=== PATIENT | female | born 1970 | race American Indian/Alaskan Native ===

== ENCOUNTER 2016-11-22 07:44 | Outpatient (CLI) | payer BC ==
--- NOTE | 2016-11-22 08:32 | Mammography Report ---
Bilateral mammogram: Compared to 08/04/15. CAD study utilized. Findings: Predominance adipose tissue bilaterally. Benign calcifications and benign densities. No suspicious calcification. No mass. Normal axilla. Impression: Benign findings. Annual follow up recommended. BI-RADS CATEGORY: 2 = Benign ACR BI-RADS MAMMOGRAPHIC CODES: 0 = Needs additional imaging evaluation; 1 = Negative; 2 = Benign; 3 = Probably benign; 4 = Suspicious; 5 = Malignant; 6 = Known biopsy-proven malignancy COMMENT: 1. Dense breast tissue, i.e., adenosis, fibrocystic changes, etc., may obscure an underlying neoplasm. 2. Approximately 10% of cancers are not detected with mammography. 3. A negative mammography report should not delay biopsy if a clinically suspicious mass is present. COMMENT: Patient follow-up letters are generated in [employer].
== END 2016-11-22 07:45 | disposition home or self-care (01) ==
LOC: MAMMO 07:44
PROVIDERS: ATTEND Internal Medicine
DX: Z12.31 Encounter for screening mammogram for malignant neoplasm of breast (principal); E11.65 Type 2 diabetes mellitus with hyperglycemia; D64.9 Anemia, unspecified
CPT/HCPCS: 77067; G0202

== ENCOUNTER 2017-06-30 15:25 | Emergency (ER) | payer BC ==
[2017-06-30 16:58] LABS: Hemoglobin 9.3 gm/dl (10.1-14.3); Red Blood Count 4.54 M/mm3 (3.65-5.03)
[2017-06-30 16:59] LABS: Mean Corpuscular Hemoglobin 20 pg (28-32); Mean Corpuscular Volume 68 fl (79-97)
[2017-06-30 17:00] LABS: Lymphocytes % (Auto) 19.6 % (13.4-35.0); Mean Corpuscular HGB Conc 30 % (30-34); Monocytes % (Auto) 8.9 % (0.0-7.3); Platelet Count 199 K/mm3 (140-440); Red Cell Distribution Width 19.1 % (13.2-15.2)
[2017-06-30 17:01] LABS: Basophils # (Auto) 0.1 K/mm3 (0.0-0.1); Basophils % (Auto) 0.9 % (0.0-1.8); Eosinophils # (Auto) 0.3 K/mm3 (0.0-0.4); Eosinophils % (Auto) 3.5 % (0.0-4.3); Lymphocytes # (Auto) 1.5 K/mm3 (1.2-5.4); Monocytes # (Auto) 0.7 K/mm3 (0.0-0.8)
[2017-06-30 17:11] LABS: BUN/Creatinine Ratio 22; Blood Urea Nitrogen 13 mg/dL (7-17); Calcium 8.7 mg/dL (8.4-10.2); Hemolysis Index 33
--- NOTE | 2017-06-30 20:54 | Emergency Department Report ---
ED General Adult HPI - General Chief complaint: Puncture Wound Stated complaint: TOE INFECTION Time Seen by Provider: 06/30/17 20:43 Source: patient Mode of arrival: Ambulatory Limitations: No Limitations - History of Present Illness Initial comments: pt hx of hypercoag, on xarelto, also dm for 20 yrs but good sensation in feet per pt has some bullous changes to her great toe and 2 toe that is now peeling, no other c/o, not sure how she got it denies burn, denies trauma, not sure if she got into wet socks and shoes, nl temp and pulses, r foot history of arterial problems no history of rest pain foot is warm to touch. No history of arterial bypass. She denies any shaking chills or fever - Related Data Home Medications Medication Instructions Recorded Confirmed Last Taken Aspirin [Baby Aspirin] 81 mg PO ONCE 12/07/13 01/16/16 01/15/16 81mg Insulin Detemir [Levemir Flexpen] 30 unit SQ QHS 12/07/13 01/16/16 01/15/16 30 units Insulin Lispro [Humalog] 4 unit SUB-Q QAC 12/07/13 01/16/16 01/16/16 4 units Rivaroxaban [Xarelto] 20 mg PO QDAY 12/07/13 01/16/16 01/15/16 20mg Previous Rx's Medication Instructions Recorded Last Taken Type Clindamycin [Clindamycin CAP] 450 mg PO Q8HR 7 Days #63 capsule 06/30/17 Unknown Rx Allergies Allergy/AdvReac Type Severity Reaction Status Date / Time No Known Allergies Allergy Verified 06/30/17 15:40 ED Review of Systems ROS: Stated complaint: TOE INFECTION Other details as noted in HPI Comment: All other systems reviewed and negative Constitutional: denies: diaphoresis, fever, malaise Respiratory: denies: no symptoms reported, cough, orthopnea, shortness of breath Cardiovascular: denies: palpitations, dyspnea on exertion, orthopnea Gastrointestinal: denies: diarrhea, constipation, hematemesis, melena Genitourinary: denies: frequency, hematuria, discharge Musculoskeletal: denies: joint swelling, arthralgia, myalgia Skin: as per HPI Neurological: denies: numbness, paresthesias ED Past Medical Hx - Past Medical History Hx Diabetes: Yes Hx GERD: Yes Hx Arthritis: Yes Additional medical history: DVT, PE, iron deficiency, MRSA, factor 5 gene - Surgical History Additional Surgical History: thyroid removed, venous ablasion - Social History Smoking Status: Never Smoker Substance Use Type: None - Medications Home Medications: Home Medications Medication Instructions Recorded Confirmed Last Taken Type Aspirin [Baby Aspirin] 81 mg PO ONCE 12/07/13 01/16/16 01/15/16 History 81mg Insulin Detemir [Levemir Flexpen] 30 unit SQ QHS 12/07/13 01/16/16 01/15/16 History 30 units Insulin Lispro [Humalog] 4 unit SUB-Q QAC 12/07/13 01/16/16 01/16/16 History 4 units Rivaroxaban [Xarelto] 20 mg PO QDAY 12/07/13 01/16/16 01/15/16 History 20mg Clindamycin [Clindamycin CAP] 450 mg PO Q8HR 7 Days #63 capsule 06/30/17 Unknown Rx ED Physical Exam - General Limitations: No Limitations General appearance: alert - Head Head exam: Present: atraumatic, normocephalic - Eye Eye exam: Present: normal appearance, PERRL, EOMI - ENT ENT exam: Present: normal exam, normal orophraynx, mucous membranes dry, mucous membranes moist - Neck Neck exam: Present: normal inspection. Absent: tenderness, meningismus - Respiratory Respiratory exam: Present: normal lung sounds bilaterally. Absent: respiratory distress, wheezes, rales, rhonchi, stridor - Cardiovascular Cardiovascular Exam: Present: regular rate, normal rhythm, normal heart sounds - GI/Abdominal GI/Abdominal exam: Present: soft. Absent: tenderness, guarding, rebound, mass, pulsatile mass - Extremities Exam Extremities exam: Present: other (right foot great toe and second digit with bullous changes local erythema but no warmth nor soft tissue gas no red streaks calf is nontender with no Homans local ulceration noted). Absent: pedal edema, joint swelling, calf tenderness - Neurological Exam Neurological exam: Present: alert, oriented X3, CN II-XII intact. Absent: motor sensory deficit - Psychiatric Psychiatric exam: Present: normal affect ED Course Vital Signs 06/30/17 06/30/17 15:41 22:19 Temperature 98.6 F Pulse Rate 94 H 89 Respiratory 18 18 Rate Blood Pressure 135/76 143/79 O2 Sat by Pulse 96 100 Oximetry - Reevaluation(s) Reevaluation #1: 06/30/17 23:20 Extra history was obtained this cyst shoulder soft tissue gas at the digit this is likely due to a fellow ulceration she was not hypotensive W Fantasma was normal as was lactic acid. No evidence of neck fashion offered to discuss the case with the on-call surgery Dr. Dr. Coy who states that if clinically she looks okay we will go ahead and discharge her this is simply appropriate since she has look toxic she doesn't have hypotension the x-ray did not show any osteomyelitis the white count and lactic were negative. ED Medical Decision Making - Lab Data Result diagrams: 06/30/17 16:37 06/30/17 16:37 - Radiology Data Radiology results: report reviewed - Medical Decision Making Dressing was placed patient was given antibiotics she is going to see the airport duty manager in referral in 2 days you should return if new alarming symptoms as previously O the case was discussed with the surgery on-call they felt it was okay to send her home. The foot has good capillary refill and good pulses. There is no evidence of what her dry gangrene at this time. There is no evidence of devitalized tissue that would need further emergent evaluation or care or inpatient evaluation at this time. No evidence of neck tightness and fasciitis. No evidence of DVT or PE noted at this time. No evidence of osteomyelitis or worsening symptoms. No evidence of sepsis patient therefore stable otptfollow-up. Critical care attestation.: If time is entered above; I have spent that time in minutes in the direct care of this critically ill patient, excluding procedure time. ED Disposition Clinical Impression: Foot ulcer, Cellulitis Disposition: DC-01 TO HOME OR SELFCARE Is pt being admited?: No Condition: Stable Instructions: Diabetic Foot Care (ED), Diabetic Foot Ulcers (ED), Cellulitis ( ED) Prescriptions: Clindamycin [Clindamycin CAP] 450 mg PO Q8HR 7 Days #63 capsule Referrals: PRIMARY CARE, [Primary Care Provider] - 3-5 Days
[2017-06-30] MEDS ORDERED: XYLOCAINE 1% MPF 5 mL INFILTRATI ONE (20:57)
[2017-06-30] MEDS ORDERED: ROCEPHIN IM ONE (20:57)
[2017-06-30 21:54] LABS: Bacteria,Urine 1+ /HPF (Negative); Bilirubin,Urine NEG (Negative); Blood,Urine SM (Negative); Color,Urine Yellow (Yellow); Nitrite,Urine POS (Negative); Urobilinogen,Urine < 2.0 mg/dL (<2.0)
[2017-06-30 22:24] VITALS: BP 143/79
--- NOTE | 2017-06-30 22:25 | XRay Report ---
FINAL REPORT PROCEDURE: Right foot. TECHNIQUE: Four views. HISTORY: Skin lesions. COMPARISON: No prior studies are available for comparison. FINDINGS: The bones appear intact without fracture or other osseous abnormality. The joint spaces appear normal. There appears to be some soft tissue gas in the distal end of the 2nd toe. This could represent an infection or a penetrating injury. There are no radiopaque foreign bodies identified. IMPRESSION: Soft tissue gas in the distal end of the 2nd toe.
== END 2017-07-01 00:02 | disposition home or self-care (01) ==
LOC: ED 15:25
DX: E11.621 Type 2 diabetes mellitus with foot ulcer (principal); L97.519 Non-pressure chronic ulcer of other part of right foot with unspecified severity; L03.031 Cellulitis of right toe; K21.9 Gastro-esophageal reflux disease without esophagitis; M19.90 Unspecified osteoarthritis, unspecified site; Z86.718 Personal history of other venous thrombosis and embolism; Z86.711 Personal history of pulmonary embolism; Z79.82 Long term (current) use of aspirin; Z79.4 Long term (current) use of insulin
CPT/HCPCS: 36415; 73630; 80048; 81001; 82140; 82805; 82962; 85025; 96372; 99284; J0696

== ENCOUNTER 2017-08-04 17:52 | Emergency (ER) | payer BC ==
[2017-08-04] MEDS ORDERED: LOPRESSOR PO ONE (19:27)
--- NOTE | 2017-08-04 19:46 | Emergency Department Report ---
Blank Doc - Documentation Documentation: Patient is a 46-year-old female who left the hospital today after application of the toes on her right lower extremity patient has a wound VAC heard she arrived home today and the nurse took her blood pressure was 200 systolic range and was sent here today. Patient has no signs of end organ damage blood pressure still elevated. Patient will receive Lopressor will recheck her blood pressure
--- NOTE | 2017-08-04 19:57 | Emergency Department Report ---
HPI - General Chief Complaint: High BP Time Seen by Provider: 08/04/17 19:16 - HPI HPI: Patient reports that she was sent from home by her home health nurse to the emergency room for blood pressure is elevated. She denies any chest pain or shortness of breath. Denies any back pain. Denies any headache, nausea or vomiting, blurred vision or eye pain. Denies any dizziness. Patient said she does not have a history of high blood pressure but she does have a history of asthma arthritis diabetes and acid reflux. Patient has history of DVT, PE, iron deficiency anemia she has MRSA, factor V Tony, foot ulcer and she had surgery recently. And is worrying a wound VAC to her foot. She had her thyroid removed and also venous ablation in the past. Patient does have a primary care physician. Patient says she takes Percocet for pain this with her surgeon prescribed after surgery and she is in pain and is probably why her blood pressure is elevated. ED Past Medical Hx - Past Medical History Previous Medical History?: Yes Hx Hypertension: No Hx Congestive Heart Failure: No Hx Diabetes: Yes Hx Deep Vein Thrombosis: No Hx GERD: Yes Hx Arthritis: Yes Hx Asthma: No Hx COPD: No Additional medical history: DVT, PE, iron deficiency, MRSA, factor 5 gene,foot ulcer - Surgical History Past Surgical History?: Yes Hx Pacemaker: No Hx Internal Defibrillator: No Additional Surgical History: thyroid removed, venous ablasion - Family History Family history: hypertension - Social History Smoking Status: Never Smoker Substance Use Type: None - Medications Home Medications: Home Medications Medication Instructions Recorded Confirmed Last Taken Type Aspirin [Aspirin BABY CHEW TAB] 81 mg PO ONCE 12/07/13 07/23/17 07/21/17 History Insulin Detemir [Levemir Flexpen] 30 unit SQ QHS 12/07/13 07/23/17 07/22/17 History Insulin Lispro [HumaLOG VIAL] 4 unit SUB-Q QAC 12/07/13 07/23/17 07/22/17 History Rivaroxaban [Xarelto] 20 mg PO QDAY 12/07/13 07/23/17 07/21/17 History Aspirin [Aspirin BABY CHEW TAB] 81 mg PO ONCE tab.chew 08/02/17 Unknown Rx Gabapentin [Neurontin] 300 mg PO PREOP capsule 08/02/17 Unknown Rx Insulin Detemir [Levemir] 35 units SUB-Q QHS units 08/02/17 Unknown Rx Rivaroxaban [Xarelto] 20 mg PO QDAY tablet 08/02/17 Unknown Rx oxyCODONE /ACETAMINOPHEN [Percocet 1 tab PO Q6H PRN #20 tablet 08/02/17 Unknown Rx 5/325 mg] amLODIPine [Norvasc] 10 mg PO DAILY 14 Days #14 tab 08/04/17 Unknown Rx ED Review of Systems ROS: Stated complaint: HYPERTENSIVE Other details as noted in HPI Comment: Came for HTN SBP 200 Constitutional: no symptoms reported Eyes: denies: eye pain, eye discharge, vision change ENT: congestion. denies: ear pain, throat pain Respiratory: no symptoms reported Cardiovascular: denies: chest pain, palpitations, edema, syncope, paroxysmal nocturnal dyspnea Gastrointestinal: denies: abdominal pain, nausea, vomiting, hematemesis, hematochezia Genitourinary: denies: dysuria, hematuria Musculoskeletal: denies: back pain, joint swelling, arthralgia, myalgia Skin: pruritus. denies: rash Neurological: denies: headache, weakness, numbness, paresthesias, confusion, abnormal gait, vertigo Physical Exam - Physical Exam Vital Signs: Vital Signs 08/04/17 18:05 Temperature 98.8 F Pulse Rate 107 H Respiratory 18 Rate Blood Pressure 180/91 O2 Sat by Pulse 97 Oximetry Vital Signs 08/04/17 08/04/17 08/04/17 18:05 19:45 20:37 Temperature 98.8 F Pulse Rate 107 H 107 H 104 H Respiratory 18 Rate Blood Pressure 180/91 180/91 190/100 Blood Pressure [Right] O2 Sat by Pulse 97 98 Oximetry 08/04/17 21:09 Temperature Pulse Rate Respiratory Rate Blood Pressure Blood Pressure 160/80 [Right] O2 Sat by Pulse Oximetry General: This is a 46-year-old female well-nourished well-developed in no acute distress. Physical Exam: Head: Normocephalic, atraumatic, no abrasion, no bruising and no contusion. Eyes: Biateral pupils equal and reactive to light, bilateral EOM intact.. Bilateral conjunctival and sclera without injection, normal accommodation. No nystagmus Mouth: Moist, no pharyngeal exudate or erythema. No peritonsillar abscesses. Uvula is midline and oral airways patent. Neck: Supple, No Cervical adenopathy, full range of motion and no C-spine tenderness. No swelling or tracheal deviation normal reflexes Cardiovascular: S1, S2. Regular rate and rhythm. No murmur. Capillary refill is less then 3 seconds. Lungs: Clear to auscultate bilaterally. No rhonchi, wheezes or rales. No chest wall tenderness. No chest contusion. No bruising to chest. Abdomen: Non-tender to palpate in all quadrants, no guarding or rebound tenderness, positive bowel sounds in all quadrants. No CVA tenderness. No hernia, bruit or mass. No rigidity or distention. Extremities: No clubbing, cyanosis or edema. +2 pulses. No neurovascular compromise. Patient with wound VAC to right foot status post surgery for diabetic foot ulcer. Skin: Clean, dry and intact. Except diabetic ulcer with wound VAC. Neurological: GCS at 15, Pt is alert and oriented 3 speech is clear period. Bilateral hand online editor strong and equal. Normal gait. Negative Romberg and no pronator drift. Normal Reflexes. No motor or sensory deficit Back: No vertebral tenderness, no paraspinal tenderness. Psych: Normal mood and behavior ED Course Vital Signs 08/04/17 18:05 Temperature 98.8 F Pulse Rate 107 H Respiratory 18 Rate Blood Pressure 180/91 O2 Sat by Pulse 97 Oximetry Vital Signs 08/04/17 08/04/17 08/04/17 18:05 19:45 20:37 Temperature 98.8 F Pulse Rate 107 H 107 H 104 H Respiratory 18 Rate Blood Pressure 180/91 180/91 190/100 Blood Pressure [Right] O2 Sat by Pulse 97 98 Oximetry 08/04/17 21:09 Temperature Pulse Rate Respiratory Rate Blood Pressure Blood Pressure 160/80 [Right] O2 Sat by Pulse Oximetry - Reevaluation(s) Reevaluation #1: 08/04/17 21:00 Patient receive metoprolol 50 mg for HTN and percocet 5/325 mg po for pain. Reevaluation #2: 08/04/17 22:33 Patient pain is controlled and her blood pressure stabilized. ED Medical Decision Making - Medical Decision Making Patient here reported that she was sent to the hospital because her blood pressure is elevated supposedly systolic blood pressure was 200 or greater. Patient remained asymptomatic and presented to the emergency room with blood pressure of 180/91. Patient had no chest pain, shortness of breath, headache, blurred vision numbness or tingling to extremities or dizziness. She says she does not have a history of high blood pressure. Patient was given metoprolol 50 mg by mouth per Dr. Kamilla Goodwin and she later asked for pain medication was given Percocet 5/325 mg by mouth for pain. Patient status post diabetic foot ulcer surgery with wound VAC in place. She was sent by her home health care nurse to the hospital for elevated blood pressure. I discussed patient that she will need to buy a blood pressure machine and keep a log of her blood pressure and call her primary care in the morning and schedule an appointment for visit to evaluate blood pressure readings. I also discussed with her that she'll be started on some Norvasc which is a blood pressure medication of the low dose and she will need to monitor her blood pressure before she takes that as she has never been diagnosed with high blood pressure. Patient voiced understanding of discharge instruction and treatment planned. Patient discharged home with prescription for Norvasc with her family member. Blood pressure is stable at present although still mildly elevated Critical care attestation.: If time is entered above; I have spent that time in minutes in the direct care of this critically ill patient, excluding procedure time. ED Disposition Clinical Impression: Elevated blood-pressure reading without diagnosis of hypertension, S/P foot surgery, right Arthralgia of foot Qualifiers: Laterality: right Qualified Code(s): M25.571 - Pain in right ankle and joints of right foot Disposition: DC-01 TO HOME OR SELFCARE Is pt being admited?: No Does the pt Need Aspirin: No Condition: Stable Instructions: DASH Eating Plan (ED), Low Sodium Diet (ED), Hypertension (ED), Arthralgia (ED) Additional Instructions: Please call your primary care physician in the morning and schedule an appointment for evaluation of high blood pressure. He will be started on Norvasc low-dose for a blood pressure and he will need to let your primary care physician now that you're started on blood pressure medication in emergency room check blood pressure daily and record and bring to primary care office with you increase tour fluid intake Take medication for pain as prescribed by your surgeon Prescriptions: amLODIPine [Norvasc] 10 mg PO DAILY 14 Days #14 tab Referrals: FRANCESCO HANSON MD [Primary Care Provider] - 08/05/17 Forms: Accompanied Note, Work/School Release Form(ED)
[2017-08-04] MEDS ORDERED: PERCOCET 5/325 PO ONE (20:19)
[2017-08-04 21:11] VITALS: BP 160/80
== END 2017-08-04 19:20 | disposition home or self-care (01) ==
LOC: ED 17:52
DX: R03.0 Elevated blood-pressure reading, without diagnosis of hypertension (principal); M25.571 Pain in right ankle and joints of right foot; E11.9 Type 2 diabetes mellitus without complications; K21.9 Gastro-esophageal reflux disease without esophagitis
CPT/HCPCS: 99282

== ENCOUNTER 2017-08-05 08:26 | Outpatient (CLI) | payer BC ==
[2017-08-05] MEDS ORDERED: XYLOCAINE TOPICAL 4% TP ONE (08:51)
== END 2017-08-05 08:27 | disposition home or self-care (01) ==
LOC: WOUND 08:26
PROVIDERS: ATTEND Podiatrist
DX: E11.621 Type 2 diabetes mellitus with foot ulcer (principal); L97.513 Non-pressure chronic ulcer of other part of right foot with necrosis of muscle; E11.40 Type 2 diabetes mellitus with diabetic neuropathy, unspecified; E11.51 Type 2 diabetes mellitus with diabetic peripheral angiopathy without gangrene; K21.9 Gastro-esophageal reflux disease without esophagitis; Z89.411 Acquired absence of right great toe; Z89.421 Acquired absence of other right toe(s); Z86.718 Personal history of other venous thrombosis and embolism; Z86.711 Personal history of pulmonary embolism; Z72.89 Other problems related to lifestyle
CPT/HCPCS: 11043; 11046; 97606; G0463

== ENCOUNTER 2017-08-08 08:02 | Outpatient (CLI) | payer BC | END 2017-08-08 08:03 | disposition home or self-care (01) | LOC: WOUND 08:02 | PROVIDERS: ATTEND Internal Medicine | DX: E11.621 Type 2 diabetes mellitus with foot ulcer (principal); L97.513 Non-pressure chronic ulcer of other part of right foot with necrosis of muscle; E11.40 Type 2 diabetes mellitus with diabetic neuropathy, unspecified; K21.9 Gastro-esophageal reflux disease without esophagitis; E11.51 Type 2 diabetes mellitus with diabetic peripheral angiopathy without gangrene; Z86.711 Personal history of pulmonary embolism; Z89.411 Acquired absence of right great toe; Z89.421 Acquired absence of other right toe(s); Z86.718 Personal history of other venous thrombosis and embolism; Z72.89 Other problems related to lifestyle | CPT/HCPCS: G0277 ×2; 99183 ==

== ENCOUNTER 2017-08-09 07:55 | Outpatient (CLI) | payer BC | END 2017-08-09 07:56 | disposition home or self-care (01) | LOC: WOUND 07:55 | PROVIDERS: ATTEND Surgery | DX: E11.621 Type 2 diabetes mellitus with foot ulcer (principal); E11.40 Type 2 diabetes mellitus with diabetic neuropathy, unspecified; E11.51 Type 2 diabetes mellitus with diabetic peripheral angiopathy without gangrene; L97.513 Non-pressure chronic ulcer of other part of right foot with necrosis of muscle; K21.9 Gastro-esophageal reflux disease without esophagitis; Z86.711 Personal history of pulmonary embolism; Z89.411 Acquired absence of right great toe; Z89.421 Acquired absence of other right toe(s); Z86.718 Personal history of other venous thrombosis and embolism; Z72.89 Other problems related to lifestyle | CPT/HCPCS: G0277 ×2; 99183 ==

== ENCOUNTER 2017-08-09 17:37 | Inpatient (IN) | payer BC ==
[2017-08-09 18:35] LABS: Basophils # (Auto) 0.1 K/mm3 (0.0-0.1); Basophils % (Auto) 2.1 % (0.0-1.8); Eosinophils # (Auto) 0.2 K/mm3 (0.0-0.4); Eosinophils % (Auto) 4.6 % (0.0-4.3); Hematocrit 23.9 % (30.3-42.9); Hemoglobin 7.3 gm/dl (10.1-14.3); Lymphocytes % (Auto) 22.9 % (13.4-35.0); Mean Corpuscular HGB Conc 31 % (30-34); Mean Corpuscular Volume 72 fl (79-97); Monocytes # (Auto) 0.5 K/mm3 (0.0-0.8); Monocytes % (Auto) 12.3 % (0.0-7.3); Platelet Count 531 K/mm3 (140-440); Red Blood Count 3.33 M/mm3 (3.65-5.03); Red Cell Distribution Width 19.5 % (13.2-15.2)
[2017-08-09 18:45] LABS: Mean Corpuscular Hemoglobin 22 pg (28-32)
[2017-08-09 19:05] LABS: INR 0.99 (0.87-1.13); Partial Thromboplastin Time 33.1 Sec. (24.2-36.6)
[2017-08-09 19:19] LABS: Erythrocyte Sedimentation Rate 82 mm/Hr (0-20)
[2017-08-09] MEDS ORDERED: NACL 0.9% 500 ML 500 ML IV ONE (21:30)
--- NOTE | 2017-08-09 22:09 | Emergency Department Report ---
- General Chief complaint: Medical Clearance Stated complaint: ABNORMAL LABS Time Seen by Provider: 08/09/17 21:18 Source: patient Mode of arrival: Ambulatory Limitations: Physical Limitation - History of Present Illness Initial comments: 46-year-old female with a past medical history of dm, asthma, gerd, dvt, pe, factor 5 leiden. right foot necrotizing infection due to MSSA and Strep currently with wound VAC in place with c/o anemia. Patient was just admitted here on 07/22 until the for right lower extremity cellulitis. Patient was discharged on wound VAC debridement. She is to continue IV antibiotics at home. Visiting nurse came to the home and ml her blood yesterday. The result was reported today with a hemoglobin of 6.6. Patient was advised to come to the ER for blood transfusion by Dr. Delgado infectious disease physician. Patient has a history of chronic iron deficiency has been treated with Iron tables and Iron infusion in the past and a she has not received a blood transfusion. She is not currently taking any iron at this time. She complains of generalized fatigue and tired feeling. PMD: Dr Pickett - Related Data Home Medications Medication Instructions Recorded Confirmed Last Taken Aspirin [Aspirin BABY CHEW TAB] 81 mg PO ONCE 12/07/13 07/23/17 07/21/17 Insulin Detemir [Levemir Flexpen] 30 unit SQ QHS 12/07/13 07/23/17 07/22/17 Insulin Lispro [HumaLOG VIAL] 4 unit SUB-Q QAC 12/07/13 07/23/17 07/22/17 Rivaroxaban [Xarelto] 20 mg PO QDAY 12/07/13 07/23/17 07/21/17 Previous Rx's Medication Instructions Recorded Last Taken Type Aspirin [Aspirin BABY CHEW TAB] 81 mg PO ONCE tab.chew 08/02/17 Unknown Rx Gabapentin [Neurontin] 300 mg PO PREOP capsule 08/02/17 Unknown Rx Insulin Detemir [Levemir] 35 units SUB-Q QHS units 08/02/17 Unknown Rx Rivaroxaban [Xarelto] 20 mg PO QDAY tablet 08/02/17 Unknown Rx oxyCODONE /ACETAMINOPHEN [Percocet 1 tab PO Q6H PRN #20 tablet 08/02/17 Unknown Rx 5/325 mg] amLODIPine [Norvasc] 10 mg PO DAILY 14 Days #14 tab 08/04/17 Unknown Rx Allergies Allergy/AdvReac Type Severity Reaction Status Date / Time No Known Allergies Allergy Verified 06/30/17 15:40 ED Review of Systems ROS: Stated complaint: ABNORMAL LABS Other details as noted in HPI Comment: All other systems reviewed and negative Other: Constitutional: No fevers chills Eyes: No eye pain visual changes ENT: No ear pain or throat pain Neck: Denies pain Respiratory: Denies cough wheezing shortness of breath Cardiovascular: Denies chest pain, palpitations, syncope GI: Denies abdominal pain, nausea, vomiting, diarrhea : Denies dysuria Musculoskeletal: as per hpi Skin: Denies rash, lesions, erythema Neurologic: Denies headache, numbness, weakness Psychiatric: Denies suicidal ideation, hallucinations ED Past Medical Hx - Past Medical History Previous Medical History?: Yes Hx Hypertension: No Hx Congestive Heart Failure: No Hx Diabetes: Yes Hx Deep Vein Thrombosis: No Hx GERD: Yes Hx Arthritis: Yes Hx Asthma: No Hx COPD: No Additional medical history: DVT, PE, iron deficiency, MRSA, factor 5 gene,foot ulcer - Surgical History Past Surgical History?: Yes Hx Pacemaker: No Hx Internal Defibrillator: No Additional Surgical History: thyroid removed, venous ablasion - Social History Smoking Status: Never Smoker Substance Use Type: Alcohol, Prescribed - Medications Home Medications: Home Medications Medication Instructions Recorded Confirmed Last Taken Type Aspirin [Aspirin BABY CHEW TAB] 81 mg PO ONCE 12/07/13 07/23/17 07/21/17 History Insulin Detemir [Levemir Flexpen] 30 unit SQ QHS 12/07/13 07/23/17 07/22/17 History Insulin Lispro [HumaLOG VIAL] 4 unit SUB-Q QAC 12/07/13 07/23/17 07/22/17 History Rivaroxaban [Xarelto] 20 mg PO QDAY 12/07/13 07/23/17 07/21/17 History Aspirin [Aspirin BABY CHEW TAB] 81 mg PO ONCE tab.chew 08/02/17 Unknown Rx Gabapentin [Neurontin] 300 mg PO PREOP capsule 08/02/17 Unknown Rx Insulin Detemir [Levemir] 35 units SUB-Q QHS units 08/02/17 Unknown Rx Rivaroxaban [Xarelto] 20 mg PO QDAY tablet 08/02/17 Unknown Rx oxyCODONE /ACETAMINOPHEN [Percocet 1 tab PO Q6H PRN #20 tablet 08/02/17 Unknown Rx 5/325 mg] amLODIPine [Norvasc] 10 mg PO DAILY 14 Days #14 tab 08/04/17 Unknown Rx ED Physical Exam - General Limitations: Physical Limitation - Other Other exam information: General: No limitations, patient is alert in no acute distress Head exam: Atraumatic, normocephalic Eyes exam: Normal appearance ENT: Moist mucous membrane, normal oropharynx Neck exam: Normal inspection, full range of motion Respiratory exam: Clear to auscultation bilateral, no wheezes, rales, crackles Cardiovascular: Mild tachycardia regular rhythm Abdomen: Soft, nondistended, and nontender, with normal bowel sounds, no rebound, or guarding Extremity: Bilateral pitting leg edema. Right foot, ankle, distal leg wrapped with a wound VAC in place. Back: Normal Inspection, full range of motion, no tenderness Neurologic: Alert, oriented x3, cranial nerves intact, no motor or sensory deficit Psychiatric: normal affect, normal mood Skin: Warm, dry, intact ED Course Vital Signs 08/09/17 08/09/17 08/09/17 17:57 21:25 22:25 Temperature 98.2 F 98.1 F Pulse Rate 110 H 102 H Respiratory 20 18 18 Rate Blood Pressure 171/84 145/76 O2 Sat by Pulse 94 92 Oximetry - Reevaluation(s) Reevaluation #1: 08/09/17 22:38 2 prbc hr decreasing ED Medical Decision Making - Lab Data Result diagrams: 08/09/17 18:11 08/09/17 21:36 Lab Results 08/09/17 08/09/17 08/09/17 Range/Units 18:11 18:11 18:11 WBC 4.2 L (4.5-11.0) K/mm3 RBC 3.33 L (3.65-5.03) M/mm3 Hgb 7.3 L (10.1-14.3) gm/dl Hct 23.9 L (30.3-42.9) % MCV 72 L (79-97) fl MCH 22 L (28-32) pg MCHC 31 (30-34) % RDW 19.5 H (13.2-15.2) % Plt Count 531 H (140-440) K/mm3 Lymph % (Auto) 22.9 (13.4-35.0) % [place] % (Auto) 12.3 H (0.0-7.3) % Eos % (Auto) 4.6 H (0.0-4.3) % Baso % (Auto) 2.1 H (0.0-1.8) % Lymph # 1.0 L (1.2-5.4) K/mm3 [place] # 0.5 (0.0-0.8) K/mm3 Eos # 0.2 (0.0-0.4) K/mm3 Baso # 0.1 (0.0-0.1) K/mm3 Seg Neutrophils % 58.1 (40.0-70.0) % Seg Neutrophils # 2.4 (1.8-7.7) K/mm3 ESR 82 (0-20) mm/Hr PT 13.6 (12.2-14.9) Sec. INR 0.99 (0.87-1.13) APTT 33.1 (24.2-36.6) Sec. Sodium (137-145) mmol/L Potassium (3.6-5.0) mmol/L Chloride (98-107) mmol/L Carbon Dioxide (22-30) mmol/L Anion Gap mmol/L BUN (7-17) mg/dL Creatinine (0.7-1.2) mg/dL Estimated GFR ml/min BUN/Creatinine Ratio % Glucose (65-100) mg/dL Calcium (8.4-10.2) mg/dL C-Reactive Protein (0.00-1.30) mg/dL Blood Type B POSITIVE Antibody Screen Negative Crossmatch See Detail 08/09/17 Range/Units 21:36 WBC (4.5-11.0) K/mm3 RBC (3.65-5.03) M/mm3 Hgb (10.1-14.3) gm/dl Hct (30.3-42.9) % MCV (79-97) fl MCH (28-32) pg MCHC (30-34) % RDW (13.2-15.2) % Plt Count (140-440) K/mm3 Lymph % (Auto) (13.4-35.0) % [place] % (Auto) (0.0-7.3) % Eos % (Auto) (0.0-4.3) % Baso % (Auto) (0.0-1.8) % Lymph # (1.2-5.4) K/mm3 [place] # (0.0-0.8) K/mm3 Eos # (0.0-0.4) K/mm3 Baso # (0.0-0.1) K/mm3 Seg Neutrophils % (40.0-70.0) % Seg Neutrophils # (1.8-7.7) K/mm3 ESR (0-20) mm/Hr PT (12.2-14.9) Sec. INR (0.87-1.13) APTT (24.2-36.6) Sec. Sodium 136 L (137-145) mmol/L Potassium 3.9 (3.6-5.0) mmol/L Chloride 101.4 (98-107) mmol/L Carbon Dioxide 27 (22-30) mmol/L Anion Gap 12 mmol/L BUN 10 (7-17) mg/dL Creatinine 0.8 (0.7-1.2) mg/dL Estimated GFR > 60 ml/min BUN/Creatinine Ratio 13 % Glucose 322 H (65-100) mg/dL Calcium 8.5 (8.4-10.2) mg/dL C-Reactive Protein 2.80 H (0.00-1.30) mg/dL Blood Type Antibody Screen Crossmatch - Medical Decision Making Patient has a history of iron deficiency anemia is not currently on Iron tablets to have recent surgical debridement of her infected foot. She is exhibiting signs and symptoms of symptomatic anemia and 2 units of PRBC have been ordered. PMD Dr Pickett has been informed and will admit patient Insulin order for mild hyperglycemia. No signs of DKA at this time - Differential Diagnosis iron deficiency anemia, infection related anemia, acute blood loss Critical Care Time: No Critical care attestation.: If time is entered above; I have spent that time in minutes in the direct care of this critically ill patient, excluding procedure time. ED Disposition Clinical Impression: Symptomatic anemia, Hypercoagulable state, Diabetes, S/P foot surgery, right, Osteomyelitis of ankle or foot Disposition: OP ADMIT IP TO THIS HOSP Is pt being admited?: Yes Condition: Stable Time of Disposition: 22:08 (Dr Pickett)
[2017-08-09 22:11] LABS: BUN/Creatinine Ratio 13; Blood Urea Nitrogen 10 mg/dL (7-17); Calcium 8.5 mg/dL (8.4-10.2); Hemolysis Index 0
[2017-08-09] MEDS ORDERED: TYLENOL PO PRN (22:49)
[2017-08-10] MEDS ORDERED: NACL 0.9% 500 ML 500 ML IV ONE (02:04)
[2017-08-10 07:59] LABS: Hematocrit 27.1 % (30.3-42.9); Hemoglobin 8.6 gm/dl (10.1-14.3)
[2017-08-10 08:31] VITALS: BP 148/80
--- NOTE | 2017-08-10 08:51 | History and Physical Report ---
History of Present Illness Date of examination: 08/10/17 Date of admission: 08/09/17 22:42 Chief complaint: Weakness generalized fatigue Right lower extremity swelling History of present illness: 46-year-old female being admitted from the emergency room with complaints of generalized weakness and lower extremity swelling, patient was recently discharged home following hospitalization for right lower extremity diabetic ulcer with osteomyelitis of the first and second toe right foot. Patient had amputation of the 1st and second toes of the right foot and extensive debridement and discharged home on wound vac and home IV antibiotics .P Patient was advised by the ID physician to go to ER because her HGB drawn by home reed nurse was reported to be 6.6however the repeat Hgb in ER was 7.3 but patient was admitted to get PRBC transfusion prior to discharge home , Patient otherwise has been doing well and tolerating home IV antibiotics as well as wound care on hyperbaric oxygen treatment at the wound care center . Past History Past Medical History: anemia, diabetes, GERD, hypertension Past Surgical History: Other (Amputation of the fist and second toes of the right foot ) Medications and Allergies Allergies Allergy/AdvReac Type Severity Reaction Status Date / Time No Known Allergies Allergy Verified 06/30/17 15:40 Home Medications Medication Instructions Recorded Confirmed Last Taken Type Aspirin [Aspirin BABY CHEW TAB] 81 mg PO ONCE 12/07/13 07/23/17 07/21/17 History Insulin Detemir [Levemir Flexpen] 30 unit SQ QHS 12/07/13 07/23/17 07/22/17 History Insulin Lispro [HumaLOG VIAL] 4 unit SUB-Q QAC 12/07/13 07/23/17 07/22/17 History Rivaroxaban [Xarelto] 20 mg PO QDAY 12/07/13 07/23/17 07/21/17 History Aspirin [Aspirin BABY CHEW TAB] 81 mg PO ONCE tab.chew 08/02/17 Unknown Rx Gabapentin [Neurontin] 300 mg PO PREOP capsule 08/02/17 Unknown Rx Insulin Detemir [Levemir] 35 units SUB-Q QHS units 08/02/17 Unknown Rx Rivaroxaban [Xarelto] 20 mg PO QDAY tablet 08/02/17 Unknown Rx oxyCODONE /ACETAMINOPHEN [Percocet 1 tab PO Q6H PRN #20 tablet 08/02/17 Unknown Rx 5/325 mg] amLODIPine [Norvasc] 10 mg PO DAILY 14 Days #14 tab 08/04/17 Unknown Rx Active Meds: Active Medications Acetaminophen (Tylenol) 650 mg PO Q6HR PRN PRN Reason: Fever Insulin Human Regular (Novolin R) 0 units SUB-Q ACHS [place] PRN Reason: Protocol Review of Systems Constitutional: fatigue, weakness Neurological: weakness Endocrine: high blood sugars Exam - Constitutional Vitals: Temp Pulse Resp BP Pulse Ox 98.5 F 97 H 20 148/80 97 08/10/17 07:43 08/10/17 07:43 08/10/17 07:43 08/10/17 07:43 08/10/17 07:43 General appearance: Present: no acute distress, well-nourished - Neck Neck: Present: normal ROM - Respiratory Respiratory: bilateral: CTA - Cardiovascular Rhythm: regular Heart Sounds: Present: S1 & S2 - Extremities Extremities: pulses symmetrical, abnormal (right foot dressed with wound vac in place ) Extremity abnormal: edema - Abdominal General gastrointestinal: Present: soft, non-tender, non-distended, normal bowel sounds Female genitourinary: Present: deferred - Rectal Rectal Exam: deferred - Integumentary Integumentary: Present: clear, warm, normal turgor - Musculoskeletal Musculoskeletal: strength equal bilaterally - Psychiatric Psychiatric: appropriate mood/affect - Neurologic Neurologic: CNII-XII intact Results - Labs CBC & Chem 7: 08/10/17 07:17 08/09/17 21:36 Labs: Abnormal lab results 08/09/17 08/09/17 08/09/17 Range/Units 18:11 18:11 21:36 WBC 4.2 L (4.5-11.0) K/mm3 RBC 3.33 L (3.65-5.03) M/mm3 Hgb 7.3 L (10.1-14.3) gm/dl Hct 23.9 L (30.3-42.9) % MCV 72 L (79-97) fl MCH 22 L (28-32) pg RDW 19.5 H (13.2-15.2) % Plt Count 531 H (140-440) K/mm3 [place] % (Auto) 12.3 H (0.0-7.3) % Eos % (Auto) 4.6 H (0.0-4.3) % Baso % (Auto) 2.1 H (0.0-1.8) % Lymph # 1.0 L (1.2-5.4) K/mm3 Sodium 136 L (137-145) mmol/L Glucose 322 H (65-100) mg/dL POC Glucose (70-105) C-Reactive Protein 2.80 H (0.00-1.30) mg/dL Crossmatch See Detail 08/10/17 08/10/17 Range/Units 06:24 07:17 WBC (4.5-11.0) K/mm3 RBC (3.65-5.03) M/mm3 Hgb 8.6 L (10.1-14.3) gm/dl Hct 27.1 L (30.3-42.9) % MCV (79-97) fl MCH (28-32) pg RDW (13.2-15.2) % Plt Count (140-440) K/mm3 [place] % (Auto) (0.0-7.3) % Eos % (Auto) (0.0-4.3) % Baso % (Auto) (0.0-1.8) % Lymph # (1.2-5.4) K/mm3 Sodium (137-145) mmol/L Glucose (65-100) mg/dL POC Glucose 253 H (70-105) C-Reactive Protein (0.00-1.30) mg/dL Crossmatch Assessment and Plan - Patient Problems (1) Diabetes Current Visit: Yes Status: Acute Qualifiers: Diabetes mellitus type: type 2 Diabetes mellitus complication detail: with peripheral angiopathy with gangrene Diabetes mellitus intermediate insulin use: with joint terminal attack controller use Plan to address problem: Continue current dose ofLevermir insulin with sliding scale coverage with regular insulin (2) Osteomyelitis of ankle or foot Current Visit: Yes Status: Acute Plan to address problem: Continue IV antibiotics as scheduled (3) Symptomatic anemia Current Visit: Yes Status: Acute Plan to address problem: Status post transfusion of 2 units of packed red blood cells. Hemoglobin obtained during transfer she was noted to be at 8.6 we'll repeat by home health (4) Cellulitis of right lower extremity Current Visit: No Status: Acute Plan to address problem: Continue wound vacuum, dressing, IV antibiotics, hyperbaric oxygenation. Plan to discharge home this morning to continue IV antibiotics and outpatient wound care treatment
--- NOTE | 2017-08-10 09:02 | Discharge Summary ---
Providers - Providers Date of Admission: 08/09/17 22:42 Date of discharge: 08/10/17 Attending physician: REYNALDO HANSON Primary care physician: GUERA CARBAJAL Hospitalization Reason for admission: weakness, anemia Condition: Good Hospital course: 45-year-old female admitted from the emergency room on account of weakness. Hemoglobin at home was reported to be 6.6 however repeat hemoglobin in the emergency room was 7.3. Patient was transfused with 2 units of packed red blood cells hemoglobin was reported to be at 8.6 but sample was obtained prior to completion of the second unit of blood . Patient is stable and has no other complaints at this time and blood glucose control has improved since disharge home . Patient will be discharge to continue home IV antibiotics , wound care as outpatient including hyperbaric oxygen treatment . Disposition: DC/TX- HOME UNDER HOME HLTH - Discharge Diagnoses (1) Diabetes Status: Acute Qualifiers: Diabetes mellitus type: type 2 Diabetes mellitus complication detail: with peripheral angiopathy with gangrene Diabetes mellitus fci insulin use: with fci use Comment: Continue home IV antibiotics as ordered per infectious disease Dr. Delgado (2) Osteomyelitis of ankle or foot Status: Acute (3) Symptomatic anemia Status: Resolved (4) Cellulitis of right lower extremity Status: Acute Comment: Continue wound care, hyperbaric oxygen treatments. Patient's wound care center Core Measure Documentation - Palliative Care Palliative Care/ Comfort Measures: Not Applicable - Core Measures Any of the following diagnoses?: none Exam - Constitutional Vitals: Temp Pulse Resp BP Pulse Ox 98.5 F 97 H 20 148/80 97 08/10/17 07:43 08/10/17 07:43 08/10/17 07:43 08/10/17 07:43 08/10/17 07:43 General appearance: Present: no acute distress - EENT Eyes: Present: PERRL ENT: hearing intact - Neck Neck: Present: supple, normal ROM - Respiratory Respiratory effort: normal Respiratory: bilateral: CTA - Cardiovascular Rhythm: regular Heart Sounds: Present: S1 & S2 Peripheral Pulses: within normal limits - Rectal Rectal Exam: deferred - Integumentary Integumentary: Present: clear, warm - Musculoskeletal Musculoskeletal: strength equal bilaterally - Psychiatric Psychiatric: appropriate mood/affect - Neurologic Neurologic: CNII-XII intact Plan Activity: advance as tolerated Weight Bearing Status: Partial Weight Bearing Wound: per your surgeon's advice, per wound nurse instructions Follow up with: GUERA CARBAJAL MD [Primary Care Provider] - 7 Days REYNALDO HANSON MD [Staff Physician] - 7 Days Prescriptions: Insulin Detemir [Levemir] 35 units SUB-Q QHS #10 units
== END 2017-08-10 13:50 | disposition home or self-care (01) | DRG 638 ==
LOC: ED 17:37 → 3A 22:42
PROVIDERS: ADMIT Internal Medicine; ATTEND Internal Medicine
PROC: 30233N1 Transfusion of Nonautologous Red Blood Cells into Peripheral Vein, Percutaneous Approach (ICD-10-PCS; principal; 2017-08-09)
DX: E11.69 Type 2 diabetes mellitus with other specified complication (principal); M86.9 Osteomyelitis, unspecified; L03.115 Cellulitis of right lower limb; M86.8X7 Other osteomyelitis, ankle and foot; D64.9 Anemia, unspecified; E11.8 Type 2 diabetes mellitus with unspecified complications; J45.909 Unspecified asthma, uncomplicated; K21.9 Gastro-esophageal reflux disease without esophagitis; Z86.718 Personal history of other venous thrombosis and embolism; Z86.711 Personal history of pulmonary embolism; Z79.4 Long term (current) use of insulin; Z79.82 Long term (current) use of aspirin
CPT/HCPCS: 36415; 36430; 80048; 82962; 85014; 85018; 85025; 85610; 85652; 85730; 86140; 86850; 86900; 86901; 86920; 87040; 96374; J1815; J7040; P9016

== ENCOUNTER 2017-08-11 07:56 | Outpatient (CLI) | payer BC ==
[2017-08-11] MEDS ORDERED: XYLOCAINE TOPICAL 4% TP ONE (10:12)
[2017-08-12] MEDS ORDERED: XYLOCAINE TOPICAL 4% TP ONE ×2 (14:42→15:20)
== END 2017-08-11 07:57 | disposition home or self-care (01) ==
LOC: WOUND 07:56
PROVIDERS: ATTEND Nurse Practitioner
DX: E11.621 Type 2 diabetes mellitus with foot ulcer (principal); L97.513 Non-pressure chronic ulcer of other part of right foot with necrosis of muscle; E11.40 Type 2 diabetes mellitus with diabetic neuropathy, unspecified; K21.9 Gastro-esophageal reflux disease without esophagitis; E11.51 Type 2 diabetes mellitus with diabetic peripheral angiopathy without gangrene; Z86.711 Personal history of pulmonary embolism; Z89.411 Acquired absence of right great toe; Z89.421 Acquired absence of other right toe(s); Z86.718 Personal history of other venous thrombosis and embolism; Z72.89 Other problems related to lifestyle
CPT/HCPCS: 11042; 11045; 82962; 97606; G0277; 97605; 99183; J1815

== ENCOUNTER 2017-08-12 07:58 | Outpatient (CLI) | payer BC ==
[~2017-08-12 07:58] MED LIST: XYLOCAINE TOPICAL 4% TP ONE
== END 2017-08-12 07:59 | disposition home or self-care (01) ==
LOC: WOUND 07:58
PROVIDERS: ATTEND Podiatrist
DX: E11.621 Type 2 diabetes mellitus with foot ulcer (principal); L97.513 Non-pressure chronic ulcer of other part of right foot with necrosis of muscle; E11.40 Type 2 diabetes mellitus with diabetic neuropathy, unspecified; K21.9 Gastro-esophageal reflux disease without esophagitis; E11.51 Type 2 diabetes mellitus with diabetic peripheral angiopathy without gangrene; Z86.711 Personal history of pulmonary embolism; Z89.411 Acquired absence of right great toe; Z89.421 Acquired absence of other right toe(s); Z86.718 Personal history of other venous thrombosis and embolism; Z72.89 Other problems related to lifestyle
CPT/HCPCS: 82962; G0277; 99183

== ENCOUNTER 2017-08-15 08:19 | Outpatient (CLI) | payer BC | END 2017-08-15 08:20 | disposition home or self-care (01) | LOC: WOUND 08:19 | PROVIDERS: ATTEND Internal Medicine | DX: E11.621 Type 2 diabetes mellitus with foot ulcer (principal); L97.513 Non-pressure chronic ulcer of other part of right foot with necrosis of muscle; E11.40 Type 2 diabetes mellitus with diabetic neuropathy, unspecified; K21.9 Gastro-esophageal reflux disease without esophagitis; E11.51 Type 2 diabetes mellitus with diabetic peripheral angiopathy without gangrene; Z86.711 Personal history of pulmonary embolism; Z89.411 Acquired absence of right great toe; Z89.421 Acquired absence of other right toe(s); Z86.718 Personal history of other venous thrombosis and embolism; Z72.89 Other problems related to lifestyle | CPT/HCPCS: 82962; G0277; 99183 ==

== ENCOUNTER 2017-08-17 08:07 | Outpatient (CLI) | payer BC | END 2017-08-17 08:08 | disposition home or self-care (01) | LOC: WOUND 08:07 | PROVIDERS: ATTEND Surgery | DX: E11.621 Type 2 diabetes mellitus with foot ulcer (principal); L97.513 Non-pressure chronic ulcer of other part of right foot with necrosis of muscle; E11.40 Type 2 diabetes mellitus with diabetic neuropathy, unspecified; K21.9 Gastro-esophageal reflux disease without esophagitis; E11.51 Type 2 diabetes mellitus with diabetic peripheral angiopathy without gangrene; Z86.711 Personal history of pulmonary embolism; Z89.411 Acquired absence of right great toe; Z89.421 Acquired absence of other right toe(s); Z86.718 Personal history of other venous thrombosis and embolism; Z72.89 Other problems related to lifestyle | CPT/HCPCS: 82962; G0277; 99183 ==

== ENCOUNTER 2017-08-18 08:03 | Outpatient (CLI) | payer BC | END 2017-08-18 08:04 | disposition home or self-care (01) | LOC: WOUND 08:03 | PROVIDERS: ATTEND Nurse Practitioner | DX: E11.621 Type 2 diabetes mellitus with foot ulcer (principal); L97.513 Non-pressure chronic ulcer of other part of right foot with necrosis of muscle; E11.40 Type 2 diabetes mellitus with diabetic neuropathy, unspecified; K21.9 Gastro-esophageal reflux disease without esophagitis; E11.51 Type 2 diabetes mellitus with diabetic peripheral angiopathy without gangrene; Z86.711 Personal history of pulmonary embolism; Z89.411 Acquired absence of right great toe; Z89.421 Acquired absence of other right toe(s); Z86.718 Personal history of other venous thrombosis and embolism; Z72.89 Other problems related to lifestyle | CPT/HCPCS: 82962; G0277; 99183 ==

== ENCOUNTER 2017-08-19 08:23 | Outpatient (CLI) | payer BC ==
[2017-08-19] MEDS ORDERED: XYLOCAINE TOPICAL 4% TP ONE ×2 (11:07→11:12)
== END 2017-08-19 08:24 | disposition home or self-care (01) ==
LOC: WOUND 08:23
PROVIDERS: ATTEND Podiatrist
DX: E11.621 Type 2 diabetes mellitus with foot ulcer (principal); L97.513 Non-pressure chronic ulcer of other part of right foot with necrosis of muscle; E11.40 Type 2 diabetes mellitus with diabetic neuropathy, unspecified; Z89.411 Acquired absence of right great toe; Z89.421 Acquired absence of other right toe(s); K21.9 Gastro-esophageal reflux disease without esophagitis; E11.51 Type 2 diabetes mellitus with diabetic peripheral angiopathy without gangrene; Z86.711 Personal history of pulmonary embolism; Z86.718 Personal history of other venous thrombosis and embolism; Z72.89 Other problems related to lifestyle
CPT/HCPCS: 11043; 11046; 82962; 97606; G0277; 99183

== ENCOUNTER 2017-08-22 08:18 | Outpatient (CLI) | payer BC | END 2017-08-22 08:19 | disposition home or self-care (01) | LOC: WOUND 08:18 | PROVIDERS: ATTEND Internal Medicine | DX: E11.621 Type 2 diabetes mellitus with foot ulcer (principal); L97.513 Non-pressure chronic ulcer of other part of right foot with necrosis of muscle; E11.40 Type 2 diabetes mellitus with diabetic neuropathy, unspecified; K21.9 Gastro-esophageal reflux disease without esophagitis; E11.51 Type 2 diabetes mellitus with diabetic peripheral angiopathy without gangrene; Z86.711 Personal history of pulmonary embolism; Z72.89 Other problems related to lifestyle; Z89.411 Acquired absence of right great toe; Z89.421 Acquired absence of other right toe(s); Z86.718 Personal history of other venous thrombosis and embolism | CPT/HCPCS: 82962; G0277; 99183 ==

== ENCOUNTER 2017-08-24 08:14 | Outpatient (CLI) | payer BC | END 2017-08-24 08:15 | disposition home or self-care (01) | LOC: WOUND 08:14 | PROVIDERS: ATTEND Surgery | DX: E11.621 Type 2 diabetes mellitus with foot ulcer (principal); L97.513 Non-pressure chronic ulcer of other part of right foot with necrosis of muscle; E11.40 Type 2 diabetes mellitus with diabetic neuropathy, unspecified; K21.9 Gastro-esophageal reflux disease without esophagitis; E11.51 Type 2 diabetes mellitus with diabetic peripheral angiopathy without gangrene; Z86.711 Personal history of pulmonary embolism; Z89.411 Acquired absence of right great toe; Z89.421 Acquired absence of other right toe(s); Z86.718 Personal history of other venous thrombosis and embolism; Z72.89 Other problems related to lifestyle | CPT/HCPCS: 82962; G0277; 99183 ==

== ENCOUNTER 2017-08-25 08:02 | Outpatient (CLI) | payer BC ==
[2017-08-25] MEDS ORDERED: XYLOCAINE TOPICAL 4% TP ONE ×2 (11:21→11:22)
== END 2017-08-25 08:03 | disposition home or self-care (01) ==
LOC: WOUND 08:02
PROVIDERS: ATTEND Nurse Practitioner
DX: E11.621 Type 2 diabetes mellitus with foot ulcer (principal); L97.513 Non-pressure chronic ulcer of other part of right foot with necrosis of muscle; E11.40 Type 2 diabetes mellitus with diabetic neuropathy, unspecified; K21.9 Gastro-esophageal reflux disease without esophagitis; E11.51 Type 2 diabetes mellitus with diabetic peripheral angiopathy without gangrene; Z86.711 Personal history of pulmonary embolism; Z89.411 Acquired absence of right great toe; Z89.421 Acquired absence of other right toe(s); Z86.718 Personal history of other venous thrombosis and embolism
CPT/HCPCS: 11042; 11045; 82962; 97606; G0277; 99183

== ENCOUNTER 2017-08-26 08:17 | Outpatient (CLI) | payer BC | END 2017-08-26 08:18 | disposition home or self-care (01) | LOC: WOUND 08:17 | PROVIDERS: ATTEND Podiatrist | DX: E11.621 Type 2 diabetes mellitus with foot ulcer (principal); L97.513 Non-pressure chronic ulcer of other part of right foot with necrosis of muscle; E11.40 Type 2 diabetes mellitus with diabetic neuropathy, unspecified; E11.51 Type 2 diabetes mellitus with diabetic peripheral angiopathy without gangrene; K21.9 Gastro-esophageal reflux disease without esophagitis; Z86.711 Personal history of pulmonary embolism; Z89.411 Acquired absence of right great toe; Z89.421 Acquired absence of other right toe(s); Z86.718 Personal history of other venous thrombosis and embolism | CPT/HCPCS: 82962; G0277; 99183 ==

== ENCOUNTER 2017-08-29 08:19 | Outpatient (CLI) | payer BC | END 2017-08-29 08:20 | disposition home or self-care (01) | LOC: WOUND 08:19 | PROVIDERS: ATTEND Internal Medicine | DX: E11.621 Type 2 diabetes mellitus with foot ulcer (principal); L97.513 Non-pressure chronic ulcer of other part of right foot with necrosis of muscle; E11.40 Type 2 diabetes mellitus with diabetic neuropathy, unspecified; K21.9 Gastro-esophageal reflux disease without esophagitis; E11.51 Type 2 diabetes mellitus with diabetic peripheral angiopathy without gangrene; Z86.711 Personal history of pulmonary embolism; Z89.411 Acquired absence of right great toe; Z89.421 Acquired absence of other right toe(s); Z86.718 Personal history of other venous thrombosis and embolism | CPT/HCPCS: 82962; G0277; 99183 ==

== ENCOUNTER 2017-08-30 08:04 | Outpatient (CLI) | payer BC | END 2017-08-30 08:05 | disposition home or self-care (01) | LOC: WOUND 08:04 | PROVIDERS: ATTEND Surgery | DX: E11.621 Type 2 diabetes mellitus with foot ulcer (principal); L97.513 Non-pressure chronic ulcer of other part of right foot with necrosis of muscle; E11.40 Type 2 diabetes mellitus with diabetic neuropathy, unspecified; K21.9 Gastro-esophageal reflux disease without esophagitis; E11.51 Type 2 diabetes mellitus with diabetic peripheral angiopathy without gangrene; Z86.711 Personal history of pulmonary embolism; Z89.411 Acquired absence of right great toe; Z89.421 Acquired absence of other right toe(s); Z86.718 Personal history of other venous thrombosis and embolism | CPT/HCPCS: 82962; G0277; 99183 ==

== ENCOUNTER 2017-08-31 07:58 | Outpatient (CLI) | payer BC ==
[2017-08-31] MEDS ORDERED: XYLOCAINE TOPICAL 4% TP ONE ×2 (10:40→10:44)
[2017-08-31] MEDS ORDERED: SILVER NITRATE TP ONE ×2 (10:57→15:19)
== END 2017-08-31 07:59 | disposition home or self-care (01) ==
LOC: WOUND 07:58
PROVIDERS: ATTEND Surgery
DX: E11.621 Type 2 diabetes mellitus with foot ulcer (principal); L97.513 Non-pressure chronic ulcer of other part of right foot with necrosis of muscle; E11.40 Type 2 diabetes mellitus with diabetic neuropathy, unspecified; K21.9 Gastro-esophageal reflux disease without esophagitis; E11.51 Type 2 diabetes mellitus with diabetic peripheral angiopathy without gangrene; Z86.711 Personal history of pulmonary embolism; Z89.411 Acquired absence of right great toe; Z89.421 Acquired absence of other right toe(s); Z86.718 Personal history of other venous thrombosis and embolism
CPT/HCPCS: 11042; 11045; 82962; 97606; G0277; 99183

== ENCOUNTER 2017-09-01 08:07 | Outpatient (CLI) | payer BC | END 2017-09-01 08:08 | disposition home or self-care (01) | LOC: WOUND 08:07 | PROVIDERS: ATTEND Nurse Practitioner | DX: E11.621 Type 2 diabetes mellitus with foot ulcer (principal); L97.513 Non-pressure chronic ulcer of other part of right foot with necrosis of muscle; E11.40 Type 2 diabetes mellitus with diabetic neuropathy, unspecified; K21.9 Gastro-esophageal reflux disease without esophagitis; E11.51 Type 2 diabetes mellitus with diabetic peripheral angiopathy without gangrene; Z86.711 Personal history of pulmonary embolism; Z89.411 Acquired absence of right great toe; Z89.421 Acquired absence of other right toe(s); Z86.718 Personal history of other venous thrombosis and embolism | CPT/HCPCS: 82962; G0277; 99183 ==

== ENCOUNTER 2017-09-02 08:08 | Outpatient (CLI) | payer BC ==
[2017-09-02] MEDS ORDERED: INSTA-GLUCOSE GEL PO ONE ×2 (09:59→11:02)
[2017-09-02] MEDS ORDERED: INSTA-GLUCOSE GEL ONE (10:03)
== END 2017-09-02 08:09 | disposition home or self-care (01) ==
LOC: WOUND 08:08
PROVIDERS: ATTEND Podiatrist
DX: E11.621 Type 2 diabetes mellitus with foot ulcer (principal); L97.513 Non-pressure chronic ulcer of other part of right foot with necrosis of muscle; E11.40 Type 2 diabetes mellitus with diabetic neuropathy, unspecified; K21.9 Gastro-esophageal reflux disease without esophagitis; E11.51 Type 2 diabetes mellitus with diabetic peripheral angiopathy without gangrene; Z86.711 Personal history of pulmonary embolism; Z89.411 Acquired absence of right great toe; Z89.421 Acquired absence of other right toe(s); Z86.718 Personal history of other venous thrombosis and embolism
CPT/HCPCS: 82962; G0277; 99183

== ENCOUNTER 2017-09-05 08:30 | Outpatient (CLI) | payer BC | END 2017-09-05 08:31 | disposition home or self-care (01) | LOC: WOUND 08:30 | PROVIDERS: ATTEND Internal Medicine | DX: E11.621 Type 2 diabetes mellitus with foot ulcer (principal); L97.513 Non-pressure chronic ulcer of other part of right foot with necrosis of muscle; E11.40 Type 2 diabetes mellitus with diabetic neuropathy, unspecified; E11.51 Type 2 diabetes mellitus with diabetic peripheral angiopathy without gangrene; K21.9 Gastro-esophageal reflux disease without esophagitis; Z86.711 Personal history of pulmonary embolism; Z89.411 Acquired absence of right great toe; Z86.718 Personal history of other venous thrombosis and embolism | CPT/HCPCS: 82962; G0277; 99183 ==

== ENCOUNTER 2017-09-06 08:05 | Outpatient (CLI) | payer BC | END 2017-09-06 08:06 | disposition home or self-care (01) | LOC: WOUND 08:05 | PROVIDERS: ATTEND Surgery | DX: E11.621 Type 2 diabetes mellitus with foot ulcer (principal); L97.513 Non-pressure chronic ulcer of other part of right foot with necrosis of muscle; E11.40 Type 2 diabetes mellitus with diabetic neuropathy, unspecified; E11.51 Type 2 diabetes mellitus with diabetic peripheral angiopathy without gangrene; K21.9 Gastro-esophageal reflux disease without esophagitis; Z89.411 Acquired absence of right great toe; Z89.421 Acquired absence of other right toe(s); Z86.718 Personal history of other venous thrombosis and embolism; Z86.711 Personal history of pulmonary embolism | CPT/HCPCS: 82962; G0277; 99183 ==

== ENCOUNTER 2017-09-07 08:12 | Outpatient (CLI) | payer BC ==
[2017-09-07] MEDS ORDERED: XYLOCAINE TOPICAL 4% TP ONE ×2 (10:39→10:40)
[2017-09-07] MEDS ORDERED: SILVER NITRATE TP ONE (11:12)
== END 2017-09-07 08:13 | disposition home or self-care (01) ==
LOC: WOUND 08:12
PROVIDERS: ATTEND Surgery
DX: E11.621 Type 2 diabetes mellitus with foot ulcer (principal); L97.513 Non-pressure chronic ulcer of other part of right foot with necrosis of muscle; E11.40 Type 2 diabetes mellitus with diabetic neuropathy, unspecified; E11.51 Type 2 diabetes mellitus with diabetic peripheral angiopathy without gangrene; K21.9 Gastro-esophageal reflux disease without esophagitis; Z86.711 Personal history of pulmonary embolism; Z89.411 Acquired absence of right great toe; Z86.718 Personal history of other venous thrombosis and embolism
CPT/HCPCS: 11042; 11045; 82962; 97606; G0277; 99183

== ENCOUNTER 2017-09-09 08:19 | Outpatient (CLI) | payer BC | END 2017-09-09 08:20 | disposition home or self-care (01) | LOC: WOUND 08:19 | PROVIDERS: ATTEND Podiatrist | DX: E11.621 Type 2 diabetes mellitus with foot ulcer (principal); L97.513 Non-pressure chronic ulcer of other part of right foot with necrosis of muscle; E11.51 Type 2 diabetes mellitus with diabetic peripheral angiopathy without gangrene; E11.40 Type 2 diabetes mellitus with diabetic neuropathy, unspecified; K21.9 Gastro-esophageal reflux disease without esophagitis; Z86.711 Personal history of pulmonary embolism; Z89.411 Acquired absence of right great toe; Z86.718 Personal history of other venous thrombosis and embolism | CPT/HCPCS: 82962; G0277; 99183 ==

== ENCOUNTER 2017-09-12 08:15 | Outpatient (CLI) | payer BC | END 2017-09-12 08:16 | disposition home or self-care (01) | LOC: WOUND 08:15 | PROVIDERS: ATTEND Internal Medicine | DX: E11.621 Type 2 diabetes mellitus with foot ulcer (principal); L97.513 Non-pressure chronic ulcer of other part of right foot with necrosis of muscle; E11.40 Type 2 diabetes mellitus with diabetic neuropathy, unspecified; Z89.411 Acquired absence of right great toe | CPT/HCPCS: 82962; G0277; 99183 ==

== ENCOUNTER 2017-09-13 08:02 | Outpatient (CLI) | payer BC | END 2017-09-13 08:03 | disposition home or self-care (01) | LOC: WOUND 08:02 | PROVIDERS: ATTEND Surgery | DX: E11.621 Type 2 diabetes mellitus with foot ulcer (principal); L97.513 Non-pressure chronic ulcer of other part of right foot with necrosis of muscle; E11.40 Type 2 diabetes mellitus with diabetic neuropathy, unspecified; E11.51 Type 2 diabetes mellitus with diabetic peripheral angiopathy without gangrene; K21.9 Gastro-esophageal reflux disease without esophagitis; Z86.711 Personal history of pulmonary embolism; Z89.411 Acquired absence of right great toe; Z86.718 Personal history of other venous thrombosis and embolism | CPT/HCPCS: 82962; G0277; 99183 ==

== ENCOUNTER 2017-09-14 08:14 | Outpatient (CLI) | payer BC ==
[2017-09-14] MEDS ORDERED: XYLOCAINE TOPICAL 4% TP ONE ×2 (10:36→10:42)
[2017-09-14] MEDS ORDERED: SILVER NITRATE TP ONE (11:29)
[2017-09-16] MEDS ORDERED: SILVER NITRATE TP ONE (16:59)
== END 2017-09-14 08:15 | disposition home or self-care (01) ==
LOC: WOUND 08:14
PROVIDERS: ATTEND Surgery
DX: E11.621 Type 2 diabetes mellitus with foot ulcer (principal); L97.513 Non-pressure chronic ulcer of other part of right foot with necrosis of muscle; E11.40 Type 2 diabetes mellitus with diabetic neuropathy, unspecified; E11.51 Type 2 diabetes mellitus with diabetic peripheral angiopathy without gangrene; K21.9 Gastro-esophageal reflux disease without esophagitis; Z86.711 Personal history of pulmonary embolism; Z89.411 Acquired absence of right great toe; Z86.718 Personal history of other venous thrombosis and embolism
CPT/HCPCS: 11042; 11045; 82962; 97605; G0277; 99183

== ENCOUNTER 2017-09-15 07:57 | Outpatient (CLI) | payer BC ==
[~2017-09-15 07:57] MED LIST changes: +SILVER NITRATE TP ONE; -XYLOCAINE TOPICAL 4% TP ONE
== END 2017-09-15 07:58 | disposition home or self-care (01) ==
LOC: WOUND 07:57
PROVIDERS: ATTEND Nurse Practitioner
DX: E11.621 Type 2 diabetes mellitus with foot ulcer (principal); L97.513 Non-pressure chronic ulcer of other part of right foot with necrosis of muscle; E11.51 Type 2 diabetes mellitus with diabetic peripheral angiopathy without gangrene; E11.40 Type 2 diabetes mellitus with diabetic neuropathy, unspecified; K21.9 Gastro-esophageal reflux disease without esophagitis; Z86.711 Personal history of pulmonary embolism; Z89.411 Acquired absence of right great toe; Z86.718 Personal history of other venous thrombosis and embolism
CPT/HCPCS: 82962; G0277; 99183

== ENCOUNTER 2017-09-20 08:01 | Outpatient (CLI) | payer BC | END 2017-09-20 08:02 | disposition home or self-care (01) | LOC: WOUND 08:01 | PROVIDERS: ATTEND Surgery | DX: E11.621 Type 2 diabetes mellitus with foot ulcer (principal); L97.513 Non-pressure chronic ulcer of other part of right foot with necrosis of muscle; E11.40 Type 2 diabetes mellitus with diabetic neuropathy, unspecified; K21.9 Gastro-esophageal reflux disease without esophagitis; E11.51 Type 2 diabetes mellitus with diabetic peripheral angiopathy without gangrene; Z86.711 Personal history of pulmonary embolism; Z89.411 Acquired absence of right great toe; Z86.718 Personal history of other venous thrombosis and embolism | CPT/HCPCS: 82962; G0277; 99183 ==

== ENCOUNTER 2017-09-21 08:12 | Outpatient (CLI) | payer BC ==
[2017-09-21] MEDS ORDERED: XYLOCAINE TOPICAL 4% TP ONE (11:03)
== END 2017-09-21 08:13 | disposition home or self-care (01) ==
LOC: WOUND 08:12
PROVIDERS: ATTEND Nurse Practitioner
DX: E11.621 Type 2 diabetes mellitus with foot ulcer (principal); L97.513 Non-pressure chronic ulcer of other part of right foot with necrosis of muscle; E11.51 Type 2 diabetes mellitus with diabetic peripheral angiopathy without gangrene; E11.40 Type 2 diabetes mellitus with diabetic neuropathy, unspecified; K21.9 Gastro-esophageal reflux disease without esophagitis; Z86.711 Personal history of pulmonary embolism; Z89.411 Acquired absence of right great toe; Z86.718 Personal history of other venous thrombosis and embolism
CPT/HCPCS: 11042; 11045; 82962; 97605; G0277; 99183

== ENCOUNTER 2017-09-22 08:20 | Outpatient (CLI) | payer BC | END 2017-09-22 08:21 | disposition home or self-care (01) | LOC: WOUND 08:20 | PROVIDERS: ATTEND Nurse Practitioner | DX: E11.621 Type 2 diabetes mellitus with foot ulcer (principal); L97.513 Non-pressure chronic ulcer of other part of right foot with necrosis of muscle; E11.40 Type 2 diabetes mellitus with diabetic neuropathy, unspecified; K21.9 Gastro-esophageal reflux disease without esophagitis; E11.51 Type 2 diabetes mellitus with diabetic peripheral angiopathy without gangrene; Z86.711 Personal history of pulmonary embolism; Z89.411 Acquired absence of right great toe; Z89.421 Acquired absence of other right toe(s); Z86.718 Personal history of other venous thrombosis and embolism | CPT/HCPCS: 82962; G0277; 99183 ==

== ENCOUNTER 2017-09-23 08:07 | Outpatient (CLI) | payer BC | END 2017-09-23 08:08 | disposition home or self-care (01) | LOC: WOUND 08:07 | PROVIDERS: ATTEND Podiatrist | DX: E11.621 Type 2 diabetes mellitus with foot ulcer (principal); L97.513 Non-pressure chronic ulcer of other part of right foot with necrosis of muscle; E11.40 Type 2 diabetes mellitus with diabetic neuropathy, unspecified; K21.9 Gastro-esophageal reflux disease without esophagitis; E11.51 Type 2 diabetes mellitus with diabetic peripheral angiopathy without gangrene; Z86.711 Personal history of pulmonary embolism; Z89.411 Acquired absence of right great toe; Z89.421 Acquired absence of other right toe(s); Z86.718 Personal history of other venous thrombosis and embolism | CPT/HCPCS: 82962; G0277; 99183 ==

== ENCOUNTER 2017-09-26 08:24 | Outpatient (CLI) | payer BC | END 2017-09-26 08:25 | disposition home or self-care (01) | LOC: WOUND 08:24 | PROVIDERS: ATTEND Internal Medicine | DX: E11.621 Type 2 diabetes mellitus with foot ulcer (principal); L97.513 Non-pressure chronic ulcer of other part of right foot with necrosis of muscle; E11.51 Type 2 diabetes mellitus with diabetic peripheral angiopathy without gangrene; E11.40 Type 2 diabetes mellitus with diabetic neuropathy, unspecified; K21.9 Gastro-esophageal reflux disease without esophagitis; Z89.411 Acquired absence of right great toe; Z86.718 Personal history of other venous thrombosis and embolism; Z86.711 Personal history of pulmonary embolism | CPT/HCPCS: 82962; G0277; 99183 ==

== ENCOUNTER 2017-09-27 08:04 | Outpatient (CLI) | payer BC | END 2017-09-27 08:05 | disposition home or self-care (01) | LOC: WOUND 08:04 | PROVIDERS: ATTEND Surgery | DX: E11.621 Type 2 diabetes mellitus with foot ulcer (principal); L97.513 Non-pressure chronic ulcer of other part of right foot with necrosis of muscle; E11.51 Type 2 diabetes mellitus with diabetic peripheral angiopathy without gangrene; E11.40 Type 2 diabetes mellitus with diabetic neuropathy, unspecified; K21.9 Gastro-esophageal reflux disease without esophagitis; Z89.411 Acquired absence of right great toe; Z86.718 Personal history of other venous thrombosis and embolism; Z86.711 Personal history of pulmonary embolism | CPT/HCPCS: 82962; G0277; 99183 ==

== ENCOUNTER 2017-09-28 07:57 | Outpatient (CLI) | payer BC ==
[2017-09-28] MEDS ORDERED: XYLOCAINE TOPICAL 4% TP ONE ×2 (10:58→11:01)
[2017-09-28] MEDS ORDERED: SILVER NITRATE TP ONE ×2 (11:53→12:19)
== END 2017-09-28 07:58 | disposition home or self-care (01) ==
LOC: WOUND 07:57
PROVIDERS: ATTEND Surgery
DX: E11.621 Type 2 diabetes mellitus with foot ulcer (principal); L97.513 Non-pressure chronic ulcer of other part of right foot with necrosis of muscle; E11.51 Type 2 diabetes mellitus with diabetic peripheral angiopathy without gangrene; E11.40 Type 2 diabetes mellitus with diabetic neuropathy, unspecified; K21.9 Gastro-esophageal reflux disease without esophagitis; Z86.711 Personal history of pulmonary embolism; Z89.411 Acquired absence of right great toe; Z86.718 Personal history of other venous thrombosis and embolism
CPT/HCPCS: 11042; 82962; G0277; 99183

== ENCOUNTER 2017-09-29 07:57 | Outpatient (CLI) | payer BC | END 2017-09-29 07:58 | disposition home or self-care (01) | LOC: WOUND 07:57 | PROVIDERS: ATTEND Nurse Practitioner | DX: E11.621 Type 2 diabetes mellitus with foot ulcer (principal); L97.513 Non-pressure chronic ulcer of other part of right foot with necrosis of muscle; E11.51 Type 2 diabetes mellitus with diabetic peripheral angiopathy without gangrene; E11.40 Type 2 diabetes mellitus with diabetic neuropathy, unspecified; K21.9 Gastro-esophageal reflux disease without esophagitis; Z86.711 Personal history of pulmonary embolism; Z89.411 Acquired absence of right great toe; Z86.718 Personal history of other venous thrombosis and embolism | CPT/HCPCS: 82962; G0277; 99183 ==

== ENCOUNTER 2017-09-30 08:10 | Outpatient (CLI) | payer BC | END 2017-09-30 08:11 | disposition home or self-care (01) | LOC: WOUND 08:10 | PROVIDERS: ATTEND Podiatrist | DX: E11.621 Type 2 diabetes mellitus with foot ulcer (principal); L97.513 Non-pressure chronic ulcer of other part of right foot with necrosis of muscle; E11.51 Type 2 diabetes mellitus with diabetic peripheral angiopathy without gangrene; E11.40 Type 2 diabetes mellitus with diabetic neuropathy, unspecified; K21.9 Gastro-esophageal reflux disease without esophagitis; Z86.711 Personal history of pulmonary embolism; Z89.411 Acquired absence of right great toe; Z86.718 Personal history of other venous thrombosis and embolism | CPT/HCPCS: 82962; G0277; 99183 ==

== ENCOUNTER 2017-10-03 08:09 | Outpatient (CLI) | payer BC | END 2017-10-03 08:10 | disposition home or self-care (01) | LOC: WOUND 08:09 | PROVIDERS: ATTEND Internal Medicine | DX: E11.621 Type 2 diabetes mellitus with foot ulcer (principal); L97.513 Non-pressure chronic ulcer of other part of right foot with necrosis of muscle; E11.51 Type 2 diabetes mellitus with diabetic peripheral angiopathy without gangrene; E11.40 Type 2 diabetes mellitus with diabetic neuropathy, unspecified; K21.9 Gastro-esophageal reflux disease without esophagitis; Z86.711 Personal history of pulmonary embolism; Z89.411 Acquired absence of right great toe; Z89.421 Acquired absence of other right toe(s); Z86.718 Personal history of other venous thrombosis and embolism | CPT/HCPCS: 82962; G0277; 99183 ==

== ENCOUNTER 2017-10-04 08:03 | Outpatient (CLI) | payer BC | END 2017-10-04 08:04 | disposition home or self-care (01) | LOC: WOUND 08:03 | PROVIDERS: ATTEND Surgery | DX: E11.621 Type 2 diabetes mellitus with foot ulcer (principal); L97.513 Non-pressure chronic ulcer of other part of right foot with necrosis of muscle; E11.51 Type 2 diabetes mellitus with diabetic peripheral angiopathy without gangrene; E11.40 Type 2 diabetes mellitus with diabetic neuropathy, unspecified; K21.9 Gastro-esophageal reflux disease without esophagitis; Z86.711 Personal history of pulmonary embolism; Z89.411 Acquired absence of right great toe; Z86.718 Personal history of other venous thrombosis and embolism | CPT/HCPCS: 82962; G0277; 99183 ==

== ENCOUNTER 2017-10-05 08:01 | Outpatient (CLI) | payer BC ==
[2017-10-05] MEDS ORDERED: XYLOCAINE TOPICAL 4% TP ONE (10:49)
== END 2017-10-05 08:02 | disposition home or self-care (01) ==
LOC: WOUND 08:01
PROVIDERS: ATTEND Surgery
DX: E11.621 Type 2 diabetes mellitus with foot ulcer (principal); L97.513 Non-pressure chronic ulcer of other part of right foot with necrosis of muscle; E11.40 Type 2 diabetes mellitus with diabetic neuropathy, unspecified; E11.51 Type 2 diabetes mellitus with diabetic peripheral angiopathy without gangrene; K21.9 Gastro-esophageal reflux disease without esophagitis; Z86.711 Personal history of pulmonary embolism; Z89.411 Acquired absence of right great toe; Z86.718 Personal history of other venous thrombosis and embolism
CPT/HCPCS: 11042; 82962; G0277; 99183

== ENCOUNTER 2017-10-06 08:09 | Outpatient (CLI) | payer BC ==
[~2017-10-06 08:09] MED LIST changes: -SILVER NITRATE TP ONE; +XYLOCAINE TOPICAL 4% TP ONE
== END 2017-10-06 08:10 | disposition home or self-care (01) ==
LOC: WOUND 08:09
PROVIDERS: ATTEND Nurse Practitioner
DX: E11.621 Type 2 diabetes mellitus with foot ulcer (principal); L97.513 Non-pressure chronic ulcer of other part of right foot with necrosis of muscle; E11.40 Type 2 diabetes mellitus with diabetic neuropathy, unspecified; E11.51 Type 2 diabetes mellitus with diabetic peripheral angiopathy without gangrene; K21.9 Gastro-esophageal reflux disease without esophagitis; Z86.711 Personal history of pulmonary embolism; Z89.411 Acquired absence of right great toe; Z86.718 Personal history of other venous thrombosis and embolism
CPT/HCPCS: 82962; G0277; 99183

== ENCOUNTER 2017-10-07 08:07 | Outpatient (CLI) | payer BC | END 2017-10-07 08:08 | disposition home or self-care (01) | LOC: WOUND 08:07 | PROVIDERS: ATTEND Podiatrist | DX: E11.621 Type 2 diabetes mellitus with foot ulcer (principal); L97.513 Non-pressure chronic ulcer of other part of right foot with necrosis of muscle; E11.40 Type 2 diabetes mellitus with diabetic neuropathy, unspecified; E11.51 Type 2 diabetes mellitus with diabetic peripheral angiopathy without gangrene; K21.9 Gastro-esophageal reflux disease without esophagitis; Z86.711 Personal history of pulmonary embolism; Z89.411 Acquired absence of right great toe; Z86.718 Personal history of other venous thrombosis and embolism | CPT/HCPCS: 82962; G0277; 99183 ==

== ENCOUNTER 2017-10-10 08:20 | Outpatient (CLI) | payer BC | END 2017-10-10 08:21 | disposition home or self-care (01) | LOC: WOUND 08:20 | PROVIDERS: ATTEND Internal Medicine | DX: E11.621 Type 2 diabetes mellitus with foot ulcer (principal); L97.513 Non-pressure chronic ulcer of other part of right foot with necrosis of muscle; E11.40 Type 2 diabetes mellitus with diabetic neuropathy, unspecified; E11.51 Type 2 diabetes mellitus with diabetic peripheral angiopathy without gangrene; K21.9 Gastro-esophageal reflux disease without esophagitis; Z86.711 Personal history of pulmonary embolism; Z89.411 Acquired absence of right great toe; Z86.718 Personal history of other venous thrombosis and embolism | CPT/HCPCS: 82962; G0277; 99183 ==

== ENCOUNTER 2017-10-12 10:09 | Outpatient (CLI) | payer BC ==
[2017-10-12] MEDS ORDERED: XYLOCAINE TOPICAL 4% TP ONE ×2 (10:23→10:30)
== END 2017-10-12 10:10 | disposition home or self-care (01) ==
LOC: WOUND 10:09
PROVIDERS: ATTEND Surgery
DX: E11.621 Type 2 diabetes mellitus with foot ulcer (principal); L97.513 Non-pressure chronic ulcer of other part of right foot with necrosis of muscle; E11.40 Type 2 diabetes mellitus with diabetic neuropathy, unspecified; E11.51 Type 2 diabetes mellitus with diabetic peripheral angiopathy without gangrene; K21.9 Gastro-esophageal reflux disease without esophagitis; Z86.711 Personal history of pulmonary embolism; Z89.411 Acquired absence of right great toe; Z86.718 Personal history of other venous thrombosis and embolism

== ENCOUNTER 2017-10-19 10:09 | Outpatient (CLI) | payer BC ==
[2017-10-19] MEDS ORDERED: XYLOCAINE TOPICAL 2% 5ML ONE (10:12)
[2017-10-19] MEDS ORDERED: XYLOCAINE TOPICAL 2% 5ML TP ONE (10:18)
== END 2017-10-19 10:10 | disposition home or self-care (01) ==
LOC: WOUND 10:09
PROVIDERS: ATTEND Surgery
DX: E11.621 Type 2 diabetes mellitus with foot ulcer (principal); L97.513 Non-pressure chronic ulcer of other part of right foot with necrosis of muscle; E11.40 Type 2 diabetes mellitus with diabetic neuropathy, unspecified; E11.51 Type 2 diabetes mellitus with diabetic peripheral angiopathy without gangrene; K21.9 Gastro-esophageal reflux disease without esophagitis; Z86.711 Personal history of pulmonary embolism; Z89.411 Acquired absence of right great toe; Z86.718 Personal history of other venous thrombosis and embolism; Z89.421 Acquired absence of other right toe(s)

== ENCOUNTER 2017-10-26 10:03 | Outpatient (CLI) | payer BC ==
[2017-10-26] MEDS ORDERED: XYLOCAINE TOPICAL 2% 5ML ONE (10:17)
[2017-10-26] MEDS ORDERED: XYLOCAINE TOPICAL 2% 5ML TP ONE (10:19)
== END 2017-10-26 10:04 | disposition home or self-care (01) ==
LOC: WOUND 10:03
PROVIDERS: ATTEND Surgery
DX: E11.621 Type 2 diabetes mellitus with foot ulcer (principal); L97.513 Non-pressure chronic ulcer of other part of right foot with necrosis of muscle; E11.51 Type 2 diabetes mellitus with diabetic peripheral angiopathy without gangrene; E11.40 Type 2 diabetes mellitus with diabetic neuropathy, unspecified; K21.9 Gastro-esophageal reflux disease without esophagitis; Z86.711 Personal history of pulmonary embolism; Z89.411 Acquired absence of right great toe; Z86.718 Personal history of other venous thrombosis and embolism

== ENCOUNTER 2017-11-02 10:01 | Outpatient (CLI) | payer BC ==
[2017-11-02] MEDS ORDERED: XYLOCAINE TOPICAL 4% TP ONE ×2 (10:12→11:00)
== END 2017-11-02 10:02 | disposition home or self-care (01) ==
LOC: WOUND 10:01
PROVIDERS: ATTEND Surgery
DX: E11.621 Type 2 diabetes mellitus with foot ulcer (principal); L97.513 Non-pressure chronic ulcer of other part of right foot with necrosis of muscle; E11.51 Type 2 diabetes mellitus with diabetic peripheral angiopathy without gangrene; E11.40 Type 2 diabetes mellitus with diabetic neuropathy, unspecified; K21.9 Gastro-esophageal reflux disease without esophagitis; Z86.711 Personal history of pulmonary embolism; Z86.718 Personal history of other venous thrombosis and embolism; Z89.411 Acquired absence of right great toe
CPT/HCPCS: 97597

== ENCOUNTER 2017-11-09 10:04 | Outpatient (CLI) | payer BC ==
[2017-11-09] MEDS ORDERED: SILVER NITRATE TP ONE ×2 (10:43→11:22)
== END 2017-11-09 10:05 | disposition home or self-care (01) ==
LOC: WOUND 10:04
PROVIDERS: ATTEND Surgery
DX: E11.621 Type 2 diabetes mellitus with foot ulcer (principal); L97.513 Non-pressure chronic ulcer of other part of right foot with necrosis of muscle; E11.40 Type 2 diabetes mellitus with diabetic neuropathy, unspecified; E11.51 Type 2 diabetes mellitus with diabetic peripheral angiopathy without gangrene; K21.9 Gastro-esophageal reflux disease without esophagitis; Z86.711 Personal history of pulmonary embolism; Z89.411 Acquired absence of right great toe; Z86.718 Personal history of other venous thrombosis and embolism

== ENCOUNTER 2017-11-10 08:43 | Outpatient (CLI) | payer BC ==
--- NOTE | 2017-11-11 11:28 | Magnetic Resonance Report ---
FINAL REPORT EXAM: LE NONJOINT RT WO CON HISTORY: DIABETIC WOUND TECHNIQUE: Fat sensitive and fluid sensitive MR sequences of the right foot were performed in sagittal, axial and coronal planes. PRIORS: None. FINDINGS: Patient is status post amputation of 1st and 2nd digits at mid metatarsal level. There edema of the forefoot, mostly around the amputations. There is a small collection of fluid abutting the 2nd metatarsal osteotomy. This measures about 12 x 14 mm. This could be some postoperative fluid. Small abscess not excluded. Note that there is some I cannot confirm bone edema or osteomyelitis. IMPRESSION: Status post amputation of 1st and 2nd digits at mid metatarsal levels. Surrounding edema. 12 x 14 mm fluid collection abutting 2nd metatarsal osteotomy. I cannot exclude a small abscess. No bony edema seen to indicate osteomyelitis.
== END 2017-11-10 08:44 | disposition home or self-care (01) ==
LOC: MRI 08:43
PROVIDERS: ATTEND Internal Medicine
DX: E11.621 Type 2 diabetes mellitus with foot ulcer (principal); L97.513 Non-pressure chronic ulcer of other part of right foot with necrosis of muscle; L02.611 Cutaneous abscess of right foot; E11.40 Type 2 diabetes mellitus with diabetic neuropathy, unspecified; Z89.421 Acquired absence of other right toe(s)

== ENCOUNTER 2017-11-16 10:05 | Outpatient (CLI) | payer BC ==
[2017-11-16] MEDS ORDERED: XYLOCAINE TOPICAL 4% TP ONE ×2 (10:28→10:40)
== END 2017-11-16 10:06 | disposition home or self-care (01) ==
LOC: WOUND 10:05
PROVIDERS: ATTEND Surgery
DX: E11.621 Type 2 diabetes mellitus with foot ulcer (principal); L97.513 Non-pressure chronic ulcer of other part of right foot with necrosis of muscle; E11.40 Type 2 diabetes mellitus with diabetic neuropathy, unspecified; E11.51 Type 2 diabetes mellitus with diabetic peripheral angiopathy without gangrene; K21.9 Gastro-esophageal reflux disease without esophagitis; Z86.711 Personal history of pulmonary embolism; Z89.411 Acquired absence of right great toe; Z86.718 Personal history of other venous thrombosis and embolism

== ENCOUNTER 2017-11-23 09:52 | Outpatient (CLI) | payer BC ==
[2017-11-23] MEDS ORDERED: XYLOCAINE TOPICAL 4% TP ONE ×2 (10:06→10:14)
[2017-11-23] MEDS ORDERED: DAKIN'S FULL STRENGTH ONE (10:26)
[2017-11-23] MEDS ORDERED: DAKIN'S FULL STRENGTH TP ONE (11:32)
== END 2017-11-23 09:53 | disposition home or self-care (01) ==
LOC: WOUND 09:52
PROVIDERS: ATTEND Surgery
DX: E11.621 Type 2 diabetes mellitus with foot ulcer (principal); L97.511 Non-pressure chronic ulcer of other part of right foot limited to breakdown of skin; K21.9 Gastro-esophageal reflux disease without esophagitis; E11.51 Type 2 diabetes mellitus with diabetic peripheral angiopathy without gangrene; Z86.711 Personal history of pulmonary embolism; Z89.421 Acquired absence of other right toe(s); Z86.718 Personal history of other venous thrombosis and embolism
CPT/HCPCS: 10061; 87075; 87076; 87116; 87186

== ENCOUNTER 2017-11-30 10:02 | Outpatient (CLI) | payer BC ==
[2017-11-30] MEDS ORDERED: XYLOCAINE TOPICAL 4% TP ONE (10:46)
[2017-11-30] MEDS ORDERED: XYLOCAINE TOPICAL 5% TP ONE (10:46)
[2017-11-30] MEDS ORDERED: SILVER NITRATE TP ONE ×2 (11:17→11:20)
== END 2017-11-30 10:03 | disposition home or self-care (01) ==
LOC: WOUND 10:02
PROVIDERS: ATTEND Surgery
DX: T87.89 Other complications of amputation stump (principal); K21.9 Gastro-esophageal reflux disease without esophagitis; I73.9 Peripheral vascular disease, unspecified; Z86.711 Personal history of pulmonary embolism; Z86.718 Personal history of other venous thrombosis and embolism; Y83.5 Amputation of limb(s) as the cause of abnormal reaction of the patient, or of later complication, without mention of misadventure at the time of the procedure
CPT/HCPCS: 88302; 88311

== ENCOUNTER 2017-11-30 13:12 | Inpatient (IN) | payer BC ==
[2017-11-30 14:08] LABS: BUN/Creatinine Ratio 20; Blood Urea Nitrogen 16 mg/dL (7-17); Calcium 8.9 mg/dL (8.4-10.2); Hemolysis Index 5
[2017-11-30 14:10] LABS: Basophils # (Auto) 0.1 K/mm3 (0.0-0.1); Basophils % (Auto) 0.5 % (0.0-1.8); Eosinophils # (Auto) 0.2 K/mm3 (0.0-0.4); Eosinophils % (Auto) 1.8 % (0.0-4.3); Hematocrit 29.8 % (30.3-42.9); Hemoglobin 9.9 gm/dl (10.1-14.3); Lymphocytes # (Auto) 1.1 K/mm3 (1.2-5.4); Lymphocytes % (Auto) 8.8 % (13.4-35.0); Mean Corpuscular HGB Conc 33 % (30-34); Mean Corpuscular Hemoglobin 26 pg (28-32); Mean Corpuscular Volume 80 fl (79-97); Monocytes # (Auto) 1.1 K/mm3 (0.0-0.8); Platelet Count 349 K/mm3 (140-440); Red Blood Count 3.73 M/mm3 (3.65-5.03); Red Cell Distribution Width 18.2 % (13.2-15.2)
[2017-11-30 14:19] LABS: INR 0.88 (0.87-1.13)
[2017-11-30 14:20] LABS: Partial Thromboplastin Time 30.1 Sec. (24.2-36.6)
[2017-11-30] MEDS ORDERED: VANCOMYCIN/NS 1 GM/250 ML 1 GM/250 ML BAG IV SCH (15:00)
[2017-11-30] MEDS ORDERED: ZOSYN/NS 4.5GM/100ML 4.5 GM/100 ML VIAL IV SCH (15:00)
[2017-11-30] MEDS ORDERED: VANCOMYCIN PHARMACY TO DOSE IV SCH (15:00)
--- NOTE | 2017-11-30 15:04 | Emergency Department Report ---
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 Patient had a amputation of her first and second toe of her right foot in August. She states that healing was going well the boot she was prescribed caused pressure blisters of her remaining toes. She now has blisters with infection of her fourth and fifth toe of her right foot. She saw the wound care doctor Dr. Edgar Wang today. He performed a partial amputation of the fourth toe sent it to pathology. Patient is scheduled to have the remaining toes 3 through 5 amputated in the morning. Patient complains of pain rated 9/10 in intensity since lidocaine is wearing off. Pain is worse with movement and palpation. No fever reported. - Related Data Home Medications Medication Instructions Recorded Confirmed Last Taken Aspirin [Aspirin BABY CHEW TAB] 81 mg PO ONCE 12/07/13 07/23/17 07/21/17 Insulin Detemir [Levemir Flexpen] 30 unit SQ QHS 12/07/13 07/23/17 07/22/17 Insulin Lispro [HumaLOG VIAL] 4 unit SUB-Q QAC 12/07/13 07/23/17 07/22/17 Rivaroxaban [Xarelto] 20 mg PO QDAY 12/07/13 07/23/17 07/21/17 Previous Rx's Medication Instructions Recorded Last Taken Type Aspirin [Aspirin BABY CHEW TAB] 81 mg PO ONCE tab.chew 08/02/17 Unknown Rx Gabapentin [Neurontin] 300 mg PO PREOP capsule 08/02/17 Unknown Rx Rivaroxaban [Xarelto] 20 mg PO QDAY tablet 08/02/17 Unknown Rx oxyCODONE /ACETAMINOPHEN [Percocet 1 tab PO Q6H PRN #20 tablet 08/02/17 Unknown Rx 5/325 mg] amLODIPine [Norvasc] 10 mg PO DAILY 14 Days #14 tab 08/04/17 Unknown Rx Acetaminophen [Acetaminophen TAB] 650 mg PO Q6HR PRN tablet 08/10/17 Unknown Rx Detemir (Nf) [Levemir (Nf)] 35 units SUB-Q QHS #10 units 08/10/17 Unknown Rx Allergies Allergy/AdvReac Type Severity Reaction Status Date / Time No Known Allergies Allergy Verified 06/30/17 15:40 ED Review of Systems ROS: Stated complaint: TOES REMOVED Other details as noted in HPI Comment: All other systems reviewed and negative ED Past Medical Hx - Past Medical History Hx Hypertension: Yes Hx Heart Attack/AMI: Yes (mild 7 years ago Has heart murmur) Hx Congestive Heart Failure: No Hx Diabetes: Yes Hx Deep Vein Thrombosis: No Hx GERD: Yes Hx Arthritis: Yes (in legs) Hx Asthma: No Hx COPD: No Hx HIV: No Additional medical history: DVT, PE, iron deficiency, MRSA, factor 5 gene,foot ulcer - Surgical History Past Surgical History?: Yes Hx Pacemaker: No Hx Internal Defibrillator: No Additional Surgical History: thyroid removed, venous ablasion. 1st and 2nd right toes amputated in Jul 2017 - Social History Smoking Status: Never Smoker Substance Use Type: None - Medications Home Medications: Home Medications Medication Instructions Recorded Confirmed Last Taken Type Aspirin [Aspirin BABY CHEW TAB] 81 mg PO ONCE 12/07/13 07/23/17 07/21/17 History Insulin Detemir [Levemir Flexpen] 30 unit SQ QHS 12/07/13 07/23/17 07/22/17 History Insulin Lispro [HumaLOG VIAL] 4 unit SUB-Q QAC 12/07/13 07/23/17 07/22/17 History Rivaroxaban [Xarelto] 20 mg PO QDAY 12/07/13 07/23/17 07/21/17 History Aspirin [Aspirin BABY CHEW TAB] 81 mg PO ONCE tab.chew 08/02/17 Unknown Rx Gabapentin [Neurontin] 300 mg PO PREOP capsule 08/02/17 Unknown Rx Rivaroxaban [Xarelto] 20 mg PO QDAY tablet 08/02/17 Unknown Rx oxyCODONE /ACETAMINOPHEN [Percocet 1 tab PO Q6H PRN #20 tablet 08/02/17 Unknown Rx 5/325 mg] amLODIPine [Norvasc] 10 mg PO DAILY 14 Days #14 tab 08/04/17 Unknown Rx Acetaminophen [Acetaminophen TAB] 650 mg PO Q6HR PRN tablet 08/10/17 Unknown Rx Detemir (Nf) [Levemir (Nf)] 35 units SUB-Q QHS #10 units 08/10/17 Unknown Rx ED Physical Exam - General Limitations: No Limitations - Other Other exam information: General: No limitations, patient is alert in no acute distress Head exam: Atraumatic, normocephalic Eyes exam: Normal appearance ENT: Moist mucous membrane, normal oropharynx Neck exam: Normal inspection, full range of motion, no meningismus nontender Respiratory exam: Clear to auscultation bilateral, no wheezes, rales, crackles Cardiovascular: Normal rate and rhythm, normal heart sounds Abdomen: Soft, nondistended, and nontender, with normal bowel sounds, no rebound, or guarding Extremity: Right foot with dressing in place. Not removed since I wound care doctor just performed a partial amputation and redressed wound prior to transfer to the ED. Back: Normal Inspection, full range of motion, no tenderness Neurologic: Alert, oriented x3, cranial nerves intact, no motor or sensory deficit Psychiatric: normal affect, normal mood Skin: Warm, dry, intact ED Course Vital Signs 11/30/17 13:23 Temperature 98.6 F Pulse Rate 94 H Respiratory 18 Rate Blood Pressure 150/75 O2 Sat by Pulse 100 Oximetry - Consultations Consultation #1: 11/30/17 14:14 Case d/w Dr Edgar Wang. request broad spectrum abx, hospitalist to admit, and consult order. Plans to operate tomorrow ED Medical Decision Making - Lab Data Result diagrams: 11/30/17 13:36 11/30/17 13:36 Lab Results 11/30/17 11/30/17 11/30/17 Range/Units 13:36 13:36 13:51 WBC 12.2 H (4.5-11.0) K/mm3 RBC 3.73 (3.65-5.03) M/mm3 Hgb 9.9 L (10.1-14.3) gm/dl Hct 29.8 L (30.3-42.9) % MCV 80 (79-97) fl MCH 26 L (28-32) pg MCHC 33 (30-34) % RDW 18.2 H (13.2-15.2) % Plt Count 349 (140-440) K/mm3 Lymph % (Auto) 8.8 L (13.4-35.0) % [place] % (Auto) 9.0 H (0.0-7.3) % Eos % (Auto) 1.8 (0.0-4.3) % Baso % (Auto) 0.5 (0.0-1.8) % Lymph # 1.1 L (1.2-5.4) K/mm3 [place] # 1.1 H (0.0-0.8) K/mm3 Eos # 0.2 (0.0-0.4) K/mm3 Baso # 0.1 (0.0-0.1) K/mm3 Seg Neutrophils % 79.9 H (40.0-70.0) % Seg Neutrophils # 9.7 H (1.8-7.7) K/mm3 PT 12.4 (12.2-14.9) Sec. INR 0.88 (0.87-1.13) APTT 30.1 (24.2-36.6) Sec. Sodium 134 L (137-145) mmol/L Potassium 4.5 (3.6-5.0) mmol/L Chloride 98.5 (98-107) mmol/L Carbon Dioxide 24 (22-30) mmol/L Anion Gap 16 mmol/L BUN 16 (7-17) mg/dL Creatinine 0.8 (0.7-1.2) mg/dL Estimated GFR > 60 ml/min BUN/Creatinine Ratio 20 % Glucose 316 H (65-100) mg/dL Calcium 8.9 (8.4-10.2) mg/dL - Medical Decision Making pt sent by by her wound care doctor for amputation of the remainder toes of her right foot scheduled in the a.m. Vancomycin and Zosyn ordered for broad-spectrum coverage Printer for pain dm mild hyperglycemia no signs of dka sliding scale iv insulin ordered Dr wang consulted hospitalist informed - Differential Diagnosis osteomyelitis, cellulitis, diabetic foot ulcer Critical Care Time: No Critical care attestation.: If time is entered above; I have spent that time in minutes in the direct care of this critically ill patient, excluding procedure time. ED Disposition Clinical Impression: Diabetic infection of right foot, S/P foot surgery, right, Anemia Diabetes Qualifiers: Diabetes mellitus type: type 2 Diabetes mellitus snf insulin use: with oysterman use Diabetes mellitus complication detail: with peripheral angiopathy with gangrene Disposition: DC-09 OP ADMIT IP TO THIS HOSP Is pt being admited?: Yes Condition: Stable Time of Disposition: 15:17 (Dr Lemons/hosp)
[2017-11-30] MEDS ORDERED: NORCO 5/325 PO ONE (15:12)
--- NOTE | 2017-11-30 15:13 | History and Physical Report ---
History of Present Illness Chief complaint: My foot is infected History of present illness: 47 YO Female with HTN, NH, DM, GERD, OA, DVT, PE, Iron Deficiency, Factor V Deficiency on Therapeutic Anticoagulation presents to ED for evaluation. Pt states that she has experienced pain and blisters with infection of her fourth and fifth toe of her right foot over the past 2 weeks with worsening symptoms over the past 2 days. Pt seen and evaluated in wound clinic today by Dr. Edgar Lozano today. Pt found to have RLE cellulitis suspicious for osteomyelitis. Pt sent to [facility] for further care and evaluation. Pt seen and evaluated in ED and found to have sepsis and RLE cellulitis. Pt admitted to medical floor. Pt to OR in am for amputation. Past History Past Medical History: acute NH, diabetes, GERD, hypertension Past Surgical History: thyroidectomy, Other (Right 1st/2nd toes) Social history: . denies: smoking, alcohol abuse, prescription drug abuse Family history: diabetes, hypertension Medications and Allergies Allergies Allergy/AdvReac Type Severity Reaction Status Date / Time No Known Allergies Allergy Verified 06/30/17 15:40 Home Medications Medication Instructions Recorded Confirmed Last Taken Type Aspirin [Aspirin BABY CHEW TAB] 81 mg PO ONCE 12/07/13 07/23/17 07/21/17 History Insulin Detemir [Levemir Flexpen] 30 unit SQ QHS 12/07/13 07/23/17 07/22/17 History Insulin Lispro [HumaLOG VIAL] 4 unit SUB-Q QAC 12/07/13 07/23/17 07/22/17 History Rivaroxaban [Xarelto] 20 mg PO QDAY 12/07/13 07/23/17 07/21/17 History Aspirin [Aspirin BABY CHEW TAB] 81 mg PO ONCE tab.chew 08/02/17 Unknown Rx Gabapentin [Neurontin] 300 mg PO PREOP capsule 08/02/17 Unknown Rx Rivaroxaban [Xarelto] 20 mg PO QDAY tablet 08/02/17 Unknown Rx oxyCODONE /ACETAMINOPHEN [Percocet 1 tab PO Q6H PRN #20 tablet 08/02/17 Unknown Rx 5/325 mg] amLODIPine [Norvasc] 10 mg PO DAILY 14 Days #14 tab 08/04/17 Unknown Rx Acetaminophen [Acetaminophen TAB] 650 mg PO Q6HR PRN tablet 08/10/17 Unknown Rx Detemir (Nf) [Levemir (Nf)] 35 units SUB-Q QHS #10 units 08/10/17 Unknown Rx Active Meds: Active Medications Acetaminophen/Hydrocodone Bitart ([place] 5/325) 1 each PO ONCE ONE Stop: 11/30/17 15:13 Vancomycin HCl (Vancomycin/Ns 1 Gm/250 Ml) 1 gm in 250 mls @ 167.007 mls/hr IV ONCE [place]; Protocol Piperacillin Sod/Tazobactam Sod (Zosyn/Ns 4.5gm/100ml) 4.5 gm in 100 mls @ 200 mls/hr IV ONCE [place] Review of Systems Constitutional: no weight loss, no weight gain, no fever, no chills Ears, nose, mouth and throat: no ear pain, no ear discharge, no tinnitis, no decreased hearing, no nose pain, no nasal congestion Breasts: no change in shape, no swelling, no mass Cardiovascular: no chest pain, no orthopnea, no palpitations, no rapid/ irregular heart beat, no edema Respiratory: no cough, no cough with sputum, no excessive sputum, no hemoptysis , no shortness of breath, no dyspnea on exertion Gastrointestinal: no nausea, no vomiting, no diarrhea, no constipation, no change in bowel habits Genitourinary Female: no dysmenorrhea, no pelvic pain, no flank pain, no menorrhagia, no dysuria, no urinary frequency, no urgency, no stress incontinence Rectal: no pain, no incontinence, no bleeding Musculoskeletal: no neck stiffness, no neck pain, no shooting arm pain, no arm numbness/tingling, no low back pain Integumentary: no rash, no pruritis, no redness, no sores, no wounds Neurological: no paralysis, no weakness, no parathesias, no numbness, no tingling, no seizures Psychiatric: no anxiety, no memory loss, no change in sleep habits, no sleep disturbances, no insomnia, no hypersomnia, no change in appetite, no change in libido Endocrine: no cold intolerance, no heat intolerance, no polyphagia, no excessive thirst, no polydipsia, no polyuria, no nocturia Hematologic/Lymphatic: no easy bruising, no easy bleeding, no lymphadenopathy, no lymphedema Allergic/Immunologic: no urticaria, no allergic rhinitis, no wheezing, no persistent infections, no anaphylaxis, no angioedema Exam - Constitutional Vitals: Temp Pulse Resp BP Pulse Ox 98.6 F 94 H 18 150/75 100 11/30/17 13:23 11/30/17 13:23 11/30/17 13:23 11/30/17 13:23 11/30/17 13:23 General appearance: Present: mild distress - EENT Eyes: Present: PERRL ENT: hearing intact, clear oral mucosa - Neck Neck: Present: supple, normal ROM - Respiratory Respiratory effort: normal Respiratory: bilateral: CTA - Cardiovascular Heart Sounds: Present: S1 & S2. Absent: rub, click - Extremities Extremities: pulses symmetrical, No edema Peripheral Pulses: within normal limits - Abdominal General gastrointestinal: Present: soft, non-tender, non-distended, normal bowel sounds Female genitourinary: Present: normal - Integumentary Integumentary: Present: erythema - Musculoskeletal Musculoskeletal: gait normal, strength equal bilaterally - Psychiatric Psychiatric: appropriate mood/affect, intact judgment & insight - Neurologic Neurologic: CNII-XII intact, moves all extremities Results - Labs CBC & Chem 7: 11/30/17 13:36 11/30/17 13:36 Labs: Abnormal lab results 11/30/17 11/30/17 Range/Units 13:36 13:36 WBC 12.2 H (4.5-11.0) K/mm3 Hgb 9.9 L (10.1-14.3) gm/dl Hct 29.8 L (30.3-42.9) % MCH 26 L (28-32) pg RDW 18.2 H (13.2-15.2) % Lymph % (Auto) 8.8 L (13.4-35.0) % [place] % (Auto) 9.0 H (0.0-7.3) % Lymph # 1.1 L (1.2-5.4) K/mm3 [place] # 1.1 H (0.0-0.8) K/mm3 Seg Neutrophils % 79.9 H (40.0-70.0) % Seg Neutrophils # 9.7 H (1.8-7.7) K/mm3 Sodium 134 L (137-145) mmol/L Glucose 316 H (65-100) mg/dL Assessment and Plan - Patient Problems (1) Sepsis Current Visit: Yes Status: Acute Qualifiers: Sepsis type: sepsis due to unspecified organism Qualified Code(s): A41.9 - Sepsis, unspecified organism Plan to address problem: IV antibiotics, IVF resuscitation, serial lactic acid, monitor uop q shift, blood cultures, wound culture, (2) Diabetic infection of right foot Current Visit: Yes Status: Acute Plan to address problem: IV antibiotic therapy, Surgery consulted, pending amputation in AM. (3) Cellulitis of right lower extremity Current Visit: No Status: Acute Plan to address problem: IV antibiotic therapy, supportive care, pain control (4) Diabetes Current Visit: Yes Status: Acute Qualifiers: Diabetes mellitus type: type 2 Diabetes mellitus intermediate teacher insulin use: with intermediate teacher use Diabetes mellitus complication detail: with peripheral angiopathy with gangrene Plan to address problem: ADA diet, insulin, accu check (5) Factor V deficiency Current Visit: Yes Status: Acute Plan to address problem: therapeutic anticoagulation, (6) DVT prophylaxis Current Visit: No Status: Acute Plan to address problem: continue anticoagulation.
[2017-11-30] MEDS ORDERED: HumuLIN R IV ONE (15:14)
[2017-11-30] MEDS ORDERED: TYLENOL PO PRN (15:29)
[2017-11-30] MEDS ORDERED: SODIUM CHLORIDE FLUSH SYRINGE 10 ML IV PRN (15:29)
[2017-11-30] MEDS ORDERED: ZOFRAN IV PRN (15:29)
[2017-11-30] MEDS ORDERED: PROVENTIL IH PRN (15:29)
[2017-11-30] MEDS ORDERED: VANCOMYCIN 1,500 MG in NACL 0.9% 500 ML 500 ML IV ONE (15:42)
[2017-11-30] MEDS ORDERED: NACL 0.9% 1000 ML IV ONE (15:42)
[2017-11-30] MEDS: ZOSYN/NS 4.5GM/100ML 4.5 GM/100 ML VIAL IV SCH ×2 (15:56→22:46)
[2017-11-30] MEDS ORDERED: NEURONTIN PO SCH (22:00)
[2017-11-30] MEDS: PERCOCET 5/325 PO PRN (22:46)
[2017-11-30] MEDS: NEURONTIN PO SCH (22:47)
[2017-11-30] MEDS: SODIUM CHLORIDE FLUSH SYRINGE 10 ML IV SCH (22:47)
[2017-12-01] MEDS: HumaLOG SUB-Q SCH ×7 (01:34→22:54)
[2017-12-01] MEDS: NEURONTIN PO SCH ×3 (06:50→22:34)
[2017-12-01] MEDS: ZOSYN/NS 4.5GM/100ML 4.5 GM/100 ML VIAL IV SCH ×3 (06:51→22:56)
[2017-12-01 08:32] LABS: HCG Qualitative,Urine Negative (Negative)
--- NOTE | 2017-12-01 10:03 | Progress Note ---
Assessment and Plan Assessment and plan: (1) Sepsis IV antibiotics, IVF resuscitation, serial lactic acid, monitor uop q shift, blood cultures, wound culture, (2) Diabetic infection of right foot IV antibiotic therapy, Surgery consulted, pending amputation today (3) Cellulitis of right lower extremity IV antibiotic therapy, supportive care, pain control (4) Diabetes ADA diet, insulin, accu check (5) Factor V deficiency therapeutic anticoagulation, (6) DVT prophylaxis continue anticoagulation. History Interval history: 47 YO Female with HTN, GA, DM, GERD, OA, DVT, PE, Iron Deficiency, Factor V Deficiency on Therapeutic Anticoagulation presents to ED for evaluation. Pt states that she has experienced pain and blisters with infection of her fourth and fifth toe of her right foot over the past 2 weeks with worsening symptoms over the past 2 days. Pt seen and evaluated in ED and found to have sepsis and RLE cellulitis. Pt admitted to medical floor. Pt to OR for amputation. Hospitalist Physical - Constitutional Vitals: Temp Pulse Resp BP Pulse Ox 98.2 F 86 19 143/69 99 12/01/17 07:56 12/01/17 07:56 12/01/17 07:56 12/01/17 07:56 12/01/17 07:56 General appearance: Present: mild distress - EENT Eyes: Present: PERRL, EOM intact ENT: hearing intact, clear oral mucosa, dentition normal - Neck Neck: Present: supple, normal ROM - Respiratory Respiratory effort: normal Respiratory: bilateral: CTA - Cardiovascular Rhythm: regular Heart Sounds: Present: S1 & S2. Absent: gallop, rub - Extremities Extremities: no ischemia, No edema, Full ROM - Abdominal General gastrointestinal: soft, non-tender, non-distended, normal bowel sounds - Integumentary Integumentary: Present: clear, warm, dry - Neurologic Neurologic: CNII-XII intact, moves all extremities Results - Labs CBC & Chem 7: 11/30/17 13:36 11/30/17 13:36 Labs: Laboratory Last Values WBC 12.2 K/mm3 (4.5-11.0) H 11/30/17 13:36 RBC 3.73 M/mm3 (3.65-5.03) 11/30/17 13:36 Hgb 9.9 gm/dl (10.1-14.3) L 11/30/17 13:36 Hct 29.8 % (30.3-42.9) L 11/30/17 13:36 MCV 80 fl (79-97) 11/30/17 13:36 MCH 26 pg (28-32) L 11/30/17 13:36 MCHC 33 % (30-34) 11/30/17 13:36 RDW 18.2 % (13.2-15.2) H 11/30/17 13:36 Plt Count 349 K/mm3 (140-440) 11/30/17 13:36 Lymph % (Auto) 8.8 % (13.4-35.0) L 11/30/17 13:36 [place] % (Auto) 9.0 % (0.0-7.3) H 11/30/17 13:36 Eos % (Auto) 1.8 % (0.0-4.3) 11/30/17 13:36 Baso % (Auto) 0.5 % (0.0-1.8) 11/30/17 13:36 Lymph # 1.1 K/mm3 (1.2-5.4) L 11/30/17 13:36 [place] # 1.1 K/mm3 (0.0-0.8) H 11/30/17 13:36 Eos # 0.2 K/mm3 (0.0-0.4) 11/30/17 13:36 Baso # 0.1 K/mm3 (0.0-0.1) 11/30/17 13:36 Seg Neutrophils % 79.9 % (40.0-70.0) H 11/30/17 13:36 Seg Neutrophils # 9.7 K/mm3 (1.8-7.7) H 11/30/17 13:36 PT 12.4 Sec. (12.2-14.9) 11/30/17 13:51 INR 0.88 (0.87-1.13) 11/30/17 13:51 APTT 30.1 Sec. (24.2-36.6) 11/30/17 13:51 Sodium 134 mmol/L (137-145) L 11/30/17 13:36 Potassium 4.5 mmol/L (3.6-5.0) 11/30/17 13:36 Chloride 98.5 mmol/L (98-107) 11/30/17 13:36 Carbon Dioxide 24 mmol/L (22-30) 11/30/17 13:36 Anion Gap 16 mmol/L 11/30/17 13:36 BUN 16 mg/dL (7-17) 11/30/17 13:36 Creatinine 0.8 mg/dL (0.7-1.2) 11/30/17 13:36 Estimated GFR > 60 ml/min 11/30/17 13:36 BUN/Creatinine Ratio 20 % 11/30/17 13:36 Glucose 316 mg/dL (65-100) H 11/30/17 13:36 POC Glucose 377 (70-105) H 12/01/17 05:15 Lactic Acid 0.70 mmol/L (0.7-2.0) 11/30/17 20:54 Calcium 8.9 mg/dL (8.4-10.2) 11/30/17 13:36 Urine HCG, Qual Negative (Negative) 12/01/17 08:00
[2017-12-01] MEDS ORDERED: XYLOCAINE 1% 20 mL ONE (10:53)
[2017-12-01] MEDS ORDERED: NACL 0.9% 1000 ML 1,000 ML IV ONE (11:46)
[2017-12-01] MEDS ORDERED: HumuLIN R IV SCH (11:47)
[2017-12-01] MEDS ORDERED: DILAUDID ONE (12:07)
[2017-12-01] MEDS ORDERED: DIPRIVAN 10 MG/ML IV ONE (12:08)
[2017-12-01] MEDS ORDERED: XYLOCAINE MPF 2% ONE (12:08)
--- NOTE | 2017-12-01 12:36 | Anesthesia Day of Surgery ---
Anesthesia Day of Surgery - Day of Surgery Patient Examined: Yes Patient H&P Reviewed: Yes Patient is NPO: Yes
[2017-12-01] MEDS ORDERED: DILAUDID IV PRN (12:37)
[2017-12-01] MEDS ORDERED: ZOFRAN IV PRN (12:37)
--- NOTE | 2017-12-01 12:37 | Anesthesia Consultation ---
Anesthesia Consult and Med Hx Date of service: 12/01/17 - Airway Anesthetic Teeth Evaluation: Good ROM Head & Neck: Adequate Mental/Hyoid Distance: Adequate Mallampati Class: Class I Intubation Access Assessment: Good - Pulmonary Exam CTA: Yes - Cardiac Exam Cardiac Exam: RRR - Pre-Operative Health Status ASA Pre-Surgery Classification: ASA3 Proposed Anesthetic Plan: General (GA with LMA ok) - Pulmonary Hx Smoking: No Hx Asthma: No COPD: No Hx Pneumonia: No - Cardiovascular System Hx Hypertension: Yes Hx Heart Attack/AMI: Yes Hx Pacemaker: No Hx Internal Defibrillator: No Hx Peripheral Vascular Disease: Yes - Central Nervous System Hx Psychiatric Problems: No - Gastrointestinal Hx Gastroesophageal Reflux Disease: Yes (control with meds) - Endocrine Hx End Stage Renal Disease: No Hx Insulin Dependent Diabetes: Yes - Hematic Hx Anemia: Yes - Other Systems Hx Cancer: No
[2017-12-01] MEDS ORDERED: ZOFRAN ONE (12:53)
[2017-12-01] MEDS ORDERED: NEO SYNEPHRINE/NS Syringe(OR USE) IV ONE (12:53)
[2017-12-01] MEDS ORDERED: VERSED IV NR (13:00)
--- NOTE | 2017-12-01 13:05 | Post Operative Note ---
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
--- NOTE | 2017-12-01 13:11 | Procedure Note ---
Date of procedure: 12/01/17 Pre-op diagnosis: Wet gangrene, right 3rd, 4th and 5th toes Post-op diagnosis: same Procedure: Ray amputation of right 3rd, 4th and 5th toes Description of procedure: Pt was placed supine on the OR table. General anesthesia by LMA was administered. Right foot was prepped and draped. The 3rd , 4th and 5th toes were amputated with the Bovie at the MTP joints. Bleeding was controlled with the Bovie. The adjacent metatarsal heads were amputated with the bone cutter. Deep cultures were obtained. Wound was packed open with a dilute, Betadine moistened Kerlix roll followed by dry 4 X 4's and a Kerlix wrap. Pt tolerated the procedure well. Anesthesia: other (LMA) Surgeon: MATILDA RODRIGUEZ Estimated blood loss: minimal Pathology: list (right 3rd, 4th and 5th toes and metatarsal heads; also C&S) Specimen disposition: to lab Condition: stable Disposition: PACU
[2017-12-01] MEDS ORDERED: HumuLIN R IV PRN (13:25)
[2017-12-01] MEDS: SODIUM CHLORIDE FLUSH SYRINGE 10 ML IV SCH ×2 (14:53→23:00)
--- NOTE | 2017-12-01 17:27 | Post Anesthesia Evaluation ---
- Post Anesthesia Evaluation Patient Participated: Yes Airway Patent: Yes Stable Respiratory Function: Yes Nausea/Vomiting: No Temp > 96.8F: Yes Pain Manageable: Yes Adequeate Hydration: Yes Anesthesia Complications: No
[2017-12-01] MEDS: NACL 0.9% 1000 ML 1,000 ML IV SCH (17:53)
[2017-12-01] MEDS: LANTUS SUB-Q SCH (22:35)
[2017-12-02] MEDS: NACL 0.9% 1000 ML 1,000 ML IV SCH ×2 (03:59→13:41)
[2017-12-02 05:42] LABS: Hemoglobin 8.5 gm/dl (10.1-14.3); Mean Corpuscular HGB Conc 34 % (30-34); Mean Corpuscular Hemoglobin 27 pg (28-32); Mean Corpuscular Volume 79 fl (79-97); Platelet Count 305 K/mm3 (140-440); Red Blood Count 3.17 M/mm3 (3.65-5.03); Red Cell Distribution Width 18.1 % (13.2-15.2)
[2017-12-02] MEDS: NEURONTIN PO SCH ×3 (05:45→23:55)
[2017-12-02] MEDS: ZOSYN/NS 4.5GM/100ML 4.5 GM/100 ML VIAL IV SCH ×3 (05:45→23:49)
[2017-12-02 06:03] LABS: BUN/Creatinine Ratio 13; Blood Urea Nitrogen 14 mg/dL (7-17); Hemolysis Index 42
[2017-12-02 06:53] LABS: Band Neutrophils # (Manual) 0.1 K/mm3; Basophils % (Manual) 0 % (0.0-1.8); Total Cells Counted 100
[2017-12-02 06:54] LABS: Anisocytosis 1+
[2017-12-02] MEDS: HumaLOG SUB-Q SCH ×7 (08:14→23:55)
[2017-12-02] MEDS ORDERED: ASPIRIN PO SCH (10:00)
[2017-12-02] MEDS: PERCOCET 5/325 PO PRN (10:28)
[2017-12-02] MEDS: SODIUM CHLORIDE FLUSH SYRINGE 10 ML IV SCH ×2 (10:29→23:55)
--- NOTE | 2017-12-02 12:59 | Progress Note ---
Assessment and Plan Assessment and plan: (1) Sepsis IV antibiotics, IVF resuscitation, serial lactic acid, monitor uop q shift, blood cultures, wound culture, (2) Diabetic infection of right foot IV antibiotic therapy, S/p 3-5 digit amputation per Podiatry, Await PT evaluation (3) Cellulitis of right lower extremity IV antibiotic therapy, supportive care, pain control (4) Diabetes ADA diet, insulin, accu check (5) Factor V deficiency therapeutic anticoagulation, (6) DVT prophylaxis continue anticoagulation. History Interval history: 47 YO Female with HTN, RI, DM, GERD, OA, DVT, PE, Iron Deficiency, Factor V Deficiency on Therapeutic Anticoagulation presents to ED for evaluation. Pt states that she has experienced pain and blisters with infection of her fourth and fifth toe of her right foot over the past 2 weeks with worsening symptoms over the past 2 days. Pt seen and evaluated in ED and found to have sepsis and RLE cellulitis. Pt admitted to medical floor. Pt s/p3-5 digit amputation Hospitalist Physical - Constitutional Vitals: Temp Pulse Resp BP Pulse Ox 98.3 F 81 19 121/64 99 12/02/17 08:02 12/02/17 08:02 12/02/17 08:02 12/02/17 08:02 12/02/17 08:02 General appearance: Present: no acute distress - EENT Eyes: Present: PERRL, EOM intact ENT: hearing intact, clear oral mucosa, dentition normal - Neck Neck: Present: supple, normal ROM - Respiratory Respiratory effort: normal Respiratory: bilateral: CTA - Cardiovascular Rhythm: regular Heart Sounds: Present: S1 & S2. Absent: gallop, rub - Extremities Extremities: no ischemia, No edema, Full ROM - Abdominal General gastrointestinal: soft, non-tender, non-distended, normal bowel sounds - Integumentary Integumentary: Present: clear, warm, dry - Neurologic Neurologic: CNII-XII intact, moves all extremities Results - Labs CBC & Chem 7: 12/02/17 05:20 12/02/17 05:20 Labs: Laboratory Last Values WBC 9.9 K/mm3 (4.5-11.0) 12/02/17 05:20 RBC 3.17 M/mm3 (3.65-5.03) L 12/02/17 05:20 Hgb 8.5 gm/dl (10.1-14.3) L 12/02/17 05:20 Hct 25.0 % (30.3-42.9) L 12/02/17 05:20 MCV 79 fl (79-97) 12/02/17 05:20 MCH 27 pg (28-32) L 12/02/17 05:20 MCHC 34 % (30-34) 12/02/17 05:20 RDW 18.1 % (13.2-15.2) H 12/02/17 05:20 Plt Count 305 K/mm3 (140-440) 12/02/17 05:20 Lymph % (Auto) 8.8 % (13.4-35.0) L 11/30/17 13:36 [place] % (Auto) 9.0 % (0.0-7.3) H 11/30/17 13:36 Eos % (Auto) 1.8 % (0.0-4.3) 11/30/17 13:36 Baso % (Auto) 0.5 % (0.0-1.8) 11/30/17 13:36 Lymph # 1.1 K/mm3 (1.2-5.4) L 11/30/17 13:36 [place] # 1.1 K/mm3 (0.0-0.8) H 11/30/17 13:36 Eos # 0.2 K/mm3 (0.0-0.4) 11/30/17 13:36 Baso # 0.1 K/mm3 (0.0-0.1) 11/30/17 13:36 Add Manual Diff Complete 12/02/17 05:20 Total Counted 100 12/02/17 05:20 Seg Neutrophils % 79.9 % (40.0-70.0) H 11/30/17 13:36 Seg Neuts % (Manual) 64.0 % (40.0-70.0) 12/02/17 05:20 Band Neutrophils % 1.0 % 12/02/17 05:20 Lymphocytes % (Manual) 15.0 % (13.4-35.0) 12/02/17 05:20 Reactive Lymphs % (Man) 0 % 12/02/17 05:20 Monocytes % (Manual) 12.0 % (0.0-7.3) H 12/02/17 05:20 Eosinophils % (Manual) 6.0 % (0.0-4.3) H 12/02/17 05:20 Basophils % (Manual) 0 % (0.0-1.8) 12/02/17 05:20 Metamyelocytes % 2.0 % 12/02/17 05:20 Myelocytes % 0 % 12/02/17 05:20 Promyelocytes % 0 % 12/02/17 05:20 Blast Cells % 0 % 12/02/17 05:20 Nucleated RBC % Not Reportable 12/02/17 05:20 Seg Neutrophils # 9.7 K/mm3 (1.8-7.7) H 11/30/17 13:36 Seg Neutrophils # Man 6.3 K/mm3 (1.8-7.7) 12/02/17 05:20 Band Neutrophils # 0.1 K/mm3 12/02/17 05:20 Lymphocytes # (Manual) 1.5 K/mm3 (1.2-5.4) 12/02/17 05:20 Abs React Lymphs (Man) 0.0 K/mm3 12/02/17 05:20 Monocytes # (Manual) 1.2 K/mm3 (0.0-0.8) H 12/02/17 05:20 Eosinophils # (Manual) 0.6 K/mm3 (0.0-0.4) H 12/02/17 05:20 Basophils # (Manual) 0.0 K/mm3 (0.0-0.1) 12/02/17 05:20 Metamyelocytes # 0.2 K/mm3 12/02/17 05:20 Myelocytes # 0.0 K/mm3 12/02/17 05:20 Promyelocytes # 0.0 K/mm3 12/02/17 05:20 Blast Cells # 0.0 K/mm3 12/02/17 05:20 WBC Morphology Not Reportable 12/02/17 05:20 Hypersegmented Neuts Not Reportable 12/02/17 05:20 Hyposegmented Neuts Not Reportable 12/02/17 05:20 Hypogranular Neuts Not Reportable 12/02/17 05:20 Smudge Cells Not Reportable 12/02/17 05:20 Toxic Granulation Not Reportable 12/02/17 05:20 Toxic Vacuolation Not Reportable 12/02/17 05:20 Dohle Bodies Not Reportable 12/02/17 05:20 Pelger-Huet Anomaly Not Reportable 12/02/17 05:20 Ivy Rods Not Reportable 12/02/17 05:20 Platelet Estimate Appears normal 12/02/17 05:20 Clumped Platelets Not Reportable 12/02/17 05:20 Plt Clumps, EDTA Not Reportable 12/02/17 05:20 Large Platelets Not Reportable 12/02/17 05:20 Giant Platelets Not Reportable 12/02/17 05:20 Platelet Satelliting Not Reportable 12/02/17 05:20 Plt Morphology Comment Not Reportable 12/02/17 05:20 RBC Morphology Not Reportable 12/02/17 05:20 Dimorphic RBCs Not Reportable 12/02/17 05:20 Polychromasia Not Reportable 12/02/17 05:20 Hypochromasia Not Reportable 12/02/17 05:20 Poikilocytosis Not Reportable 12/02/17 05:20 Anisocytosis 1+ 12/02/17 05:20 Microcytosis Not Reportable 12/02/17 05:20 Macrocytosis Not Reportable 12/02/17 05:20 Spherocytes Not Reportable 12/02/17 05:20 Pappenheimer Bodies Not Reportable 12/02/17 05:20 Sickle Cells Not Reportable 12/02/17 05:20 Target Cells Not Reportable 12/02/17 05:20 Tear Drop Cells Not Reportable 12/02/17 05:20 Ovalocytes Not Reportable 12/02/17 05:20 Helmet Cells Not Reportable 12/02/17 05:20 [place] Bodies Not Reportable 12/02/17 05:20 [place] Rings Not Reportable 12/02/17 05:20 [place] Cells Not Reportable 12/02/17 05:20 Bite Cells Not Reportable 12/02/17 05:20 Crenated Cell Not Reportable 12/02/17 05:20 Elliptocytes Not Reportable 12/02/17 05:20 Acanthocytes (Spur) Not Reportable 12/02/17 05:20 Rouleaux Not Reportable 12/02/17 05:20 Hemoglobin C Crystals Not Reportable 12/02/17 05:20 Schistocytes Not Reportable 12/02/17 05:20 Malaria parasites Not Reportable 12/02/17 05:20 Santy Bodies Not Reportable 12/02/17 05:20 Hem Pathologist Commnt No 12/02/17 05:20 PT 12.4 Sec. (12.2-14.9) 11/30/17 13:51 INR 0.88 (0.87-1.13) 11/30/17 13:51 APTT 30.1 Sec. (24.2-36.6) 11/30/17 13:51 Sodium 141 mmol/L (137-145) D 12/02/17 05:20 Potassium 4.2 mmol/L (3.6-5.0) 12/02/17 05:20 Chloride 106.2 mmol/L (98-107) 12/02/17 05:20 Carbon Dioxide 24 mmol/L (22-30) 12/02/17 05:20 Anion Gap 15 mmol/L 12/02/17 05:20 BUN 14 mg/dL (7-17) 12/02/17 05:20 Creatinine 1.1 mg/dL (0.7-1.2) 12/02/17 05:20 Estimated GFR > 60 ml/min 12/02/17 05:20 BUN/Creatinine Ratio 13 % 12/02/17 05:20 Glucose 220 mg/dL (65-100) H 12/02/17 05:20 POC Glucose 240 (70-105) H 12/02/17 05:23 Lactic Acid 0.70 mmol/L (0.7-2.0) 11/30/17 20:54 Calcium 8.0 mg/dL (8.4-10.2) L 12/02/17 05:20 Urine HCG, Qual Negative (Negative) 12/01/17 08:00
--- NOTE | 2017-12-02 13:52 | Progress Note ---
Assessment and Plan - Patient Problems (1) S/P foot surgery, right Current Visit: Yes Status: Acute Plan to address problem: 1) Pt can be discharged from my perspective. 2) F/u in the Wound Clinic Subjective Date of service: 12/02/17 Patient Reports: Positive: no new complaints Objective Vital Signs - 12hr 12/02/17 12/02/17 04:09 08:02 Temperature 98.9 F 98.3 F Pulse Rate 82 81 Respiratory 16 19 Rate Blood Pressure 115/58 121/64 O2 Sat by Pulse 98 99 Oximetry - Musculoskeletal other (Wound vac is in place.) - Labs 12/02/17 05:20 12/02/17 05:20 Diabetes panel 12/02/17 Range/Units 05:20 Sodium 141 D (137-145) mmol/L Potassium 4.2 (3.6-5.0) mmol/L Chloride 106.2 (98-107) mmol/L Carbon Dioxide 24 (22-30) mmol/L BUN 14 (7-17) mg/dL Creatinine 1.1 (0.7-1.2) mg/dL Glucose 220 H (65-100) mg/dL Calcium 8.0 L (8.4-10.2) mg/dL Calcium panel 12/02/17 Range/Units 05:20 Calcium 8.0 L (8.4-10.2) mg/dL Pituitary panel 12/02/17 Range/Units 05:20 Sodium 141 D (137-145) mmol/L Potassium 4.2 (3.6-5.0) mmol/L Chloride 106.2 (98-107) mmol/L Carbon Dioxide 24 (22-30) mmol/L BUN 14 (7-17) mg/dL Creatinine 1.1 (0.7-1.2) mg/dL Glucose 220 H (65-100) mg/dL Calcium 8.0 L (8.4-10.2) mg/dL Adrenal panel 12/02/17 Range/Units 05:20 Sodium 141 D (137-145) mmol/L Potassium 4.2 (3.6-5.0) mmol/L Chloride 106.2 (98-107) mmol/L Carbon Dioxide 24 (22-30) mmol/L BUN 14 (7-17) mg/dL Creatinine 1.1 (0.7-1.2) mg/dL Glucose 220 H (65-100) mg/dL Calcium 8.0 L (8.4-10.2) mg/dL
[2017-12-02] MEDS: BABY ASPIRIN PO SCH (23:55)
[2017-12-02] MEDS: XARELTO PO SCH (23:55)
[2017-12-02] MEDS: LANTUS SUB-Q SCH (23:55)
[2017-12-03] MEDS: ZOSYN/NS 4.5GM/100ML 4.5 GM/100 ML VIAL IV SCH ×2 (06:30→13:42)
[2017-12-03] MEDS: NEURONTIN PO SCH ×2 (06:30→13:42)
[2017-12-03 06:56] LABS: Basophils % (Auto) 0.4 % (0.0-1.8); Eosinophils # (Auto) 0.4 K/mm3 (0.0-0.4); Eosinophils % (Auto) 4.9 % (0.0-4.3); Hematocrit 25.1 % (30.3-42.9); Hemoglobin 8.4 gm/dl (10.1-14.3); Lymphocytes # (Auto) 1.4 K/mm3 (1.2-5.4); Lymphocytes % (Auto) 16.8 % (13.4-35.0); Mean Corpuscular HGB Conc 33 % (30-34); Mean Corpuscular Hemoglobin 27 pg (28-32); Mean Corpuscular Volume 80 fl (79-97); Monocytes # (Auto) 0.8 K/mm3 (0.0-0.8); Monocytes % (Auto) 9.5 % (0.0-7.3); Platelet Count 300 K/mm3 (140-440); Red Blood Count 3.16 M/mm3 (3.65-5.03); Red Cell Distribution Width 18.1 % (13.2-15.2)
[2017-12-03 07:14] LABS: BUN/Creatinine Ratio 12; Blood Urea Nitrogen 12 mg/dL (7-17); Calcium 7.8 mg/dL (8.4-10.2); Hemolysis Index 0
[2017-12-03] MEDS: HumaLOG SUB-Q SCH ×6 (08:37→18:05)
[2017-12-03] MEDS: XARELTO PO SCH (11:31)
[2017-12-03] MEDS: BABY ASPIRIN PO SCH (11:31)
[2017-12-03] MEDS: SODIUM CHLORIDE FLUSH SYRINGE 10 ML IV SCH (11:32)
[2017-12-03] MEDS: NACL 0.9% 1000 ML 1,000 ML IV SCH (11:32)
[2017-12-03] MEDS: PERCOCET 5/325 PO PRN (14:04)
[2017-12-03 14:25] VITALS: BP 172/87
--- NOTE | 2017-12-03 18:43 | Discharge Summary ---
Providers - Providers Date of Admission: 11/30/17 15:30 Date of discharge: 12/03/17 Attending physician: DEBBIE MAHER 11/30/17 14:14 Consult to Physician [CONS] Urgent Comment: DR RODRIGUEZ NOTIFIED [id number] Consulting Provider: MATILDA RODRIGUEZ Physician Instructions: Reason For Exam: right foot toes infected 12/02/17 12:29 Consult to Wound/ET Nurse [CONS] Routine Reason For Exam: wound eval Primary care physician: INDUCTION M[employer]INE [employer]TER Hospitalization Condition: Stable Hospital course: Patient presents with diabetic foot wound was brought in debridement with amputation tolerated procedure well. Then by podiatry has follow-up podiatry in 7-10 days. Patient had sepsis resolved. Patient is to follow wound clinic will continue by mouth antibiotics. Home health has been set up for patient patient also has wound VAC in place understanding is on 20 set it up and use it. Patient's Accu-Cheks and diabetes has been suboptimally controlled most likely secondary to infection patient can titrate this as outpatient. Patient tell culture showed beta hemolytic strep blood culture is negative. Patient also has factor V Leiden on xarelto Disposition: DC-01 TO HOME OR SELFCARE Core Measure Documentation - Palliative Care Palliative Care/ Comfort Measures: Not Applicable - Core Measures Any of the following diagnoses?: none Exam - Constitutional Vitals: Temp Pulse Resp BP Pulse Ox 98.1 F 101 H 20 172/87 99 12/03/17 14:17 12/03/17 14:17 12/03/17 14:17 12/03/17 14:17 12/03/17 14:17 General appearance: Present: no acute distress, well-nourished - EENT Eyes: Present: PERRL ENT: hearing intact, clear oral mucosa - Neck Neck: Present: supple, normal ROM - Respiratory Respiratory effort: normal Respiratory: bilateral: CTA - Cardiovascular Heart Sounds: Present: S1 & S2. Absent: rub, click - Extremities Extremities: pulses symmetrical, No edema Peripheral Pulses: within normal limits - Abdominal General gastrointestinal: Present: soft, non-tender, non-distended, normal bowel sounds Female genitourinary: Present: normal - Integumentary Integumentary: Present: clear, warm, dry, pale (toe bandaged wound VAC in place) - Musculoskeletal Musculoskeletal: gait normal, strength equal bilaterally - Psychiatric Psychiatric: appropriate mood/affect, intact judgment & insight - Neurologic Neurologic: CNII-XII intact, moves all extremities Plan Activity: no restrictions, up only with assistance Weight Bearing Status: Partial Weight Bearing Diet: diabetic Wound: per your surgeon's advice Prescriptions: Gabapentin [Neurontin] 300 mg PO Q8HR #90 capsule Insulin Glargine,Hum.rec.anlog [Lantus] 30 units SQ QHS #30 vial Insulin Lispro [HumaLOG VIAL] 7 unit SUB-Q QAC #7 vial oxyCODONE /ACETAMINOPHEN [Percocet 5/325 mg] 1 tab PO Q6H PRN #30 tablet PRN Reason: Pain, Moderate (4-6) Rivaroxaban [Xarelto] 20 mg PO QDAY #30 tablet
== END 2017-12-03 20:30 | disposition home or self-care (01) | DRG 854 ==
LOC: ED 13:12 → 3A 15:30 → EEVIPCON 15:30 → 3A 18:22
PROVIDERS: ADMIT Internal Medicine; ATTEND Internal Medicine
PROC: 0Y6M0ZF Detachment at Right Foot, Partial 5th Ray, Open Approach (ICD-10-PCS; principal; 2017-12-01)
PROC: 0Y6M0ZD Detachment at Right Foot, Partial 4th Ray, Open Approach (ICD-10-PCS; principal; 2017-12-01)
PROC: 0Y6M0ZC Detachment at Right Foot, Partial 3rd Ray, Open Approach (ICD-10-PCS; principal; 2017-12-01)
DX: A41.9 Sepsis, unspecified organism (principal); D68.2 Hereditary deficiency of other clotting factors; E11.52 Type 2 diabetes mellitus with diabetic peripheral angiopathy with gangrene; L03.031 Cellulitis of right toe; I10 Essential (primary) hypertension; M19.90 Unspecified osteoarthritis, unspecified site; E89.0 Postprocedural hypothyroidism; K21.9 Gastro-esophageal reflux disease without esophagitis; I25.2 Old myocardial infarction; E11.65 Type 2 diabetes mellitus with hyperglycemia; Z79.4 Long term (current) use of insulin; Z86.718 Personal history of other venous thrombosis and embolism; Z82.49 Family history of ischemic heart disease and other diseases of the circulatory system; Z83.3 Family history of diabetes mellitus; Z79.82 Long term (current) use of aspirin; Z79.899 Other long term (current) drug therapy
CPT/HCPCS: 36415; 80048; 81025; 82140; 82962; 85007; 85025; 85610; 85730; 87040; 87075; 87076; 87116; 87186; 88305; 88311; 96365; J1170; J1815; J2370; J2405; J2543; J2704; J3370; J7030; J7040

== ENCOUNTER 2017-12-06 08:22 | Outpatient (CLI) | payer BC ==
[2017-12-06] MEDS ORDERED: XYLOCAINE TOPICAL 4% TP ONE ×2 (08:37→08:58)
== END 2017-12-06 08:23 | disposition home or self-care (01) ==
LOC: WOUND 08:22
PROVIDERS: ATTEND Surgery
DX: T87.89 Other complications of amputation stump (principal); E11.621 Type 2 diabetes mellitus with foot ulcer; L97.513 Non-pressure chronic ulcer of other part of right foot with necrosis of muscle; E11.51 Type 2 diabetes mellitus with diabetic peripheral angiopathy without gangrene; E11.40 Type 2 diabetes mellitus with diabetic neuropathy, unspecified; K21.9 Gastro-esophageal reflux disease without esophagitis; Z86.711 Personal history of pulmonary embolism; Z86.718 Personal history of other venous thrombosis and embolism; Y83.5 Amputation of limb(s) as the cause of abnormal reaction of the patient, or of later complication, without mention of misadventure at the time of the procedure
CPT/HCPCS: 97605

== ENCOUNTER 2017-12-13 08:13 | Outpatient (CLI) | payer BC | END 2017-12-13 08:14 | disposition home or self-care (01) | LOC: WOUND 08:13 | PROVIDERS: ATTEND Surgery | DX: E11.621 Type 2 diabetes mellitus with foot ulcer (principal); L97.513 Non-pressure chronic ulcer of other part of right foot with necrosis of muscle; E11.51 Type 2 diabetes mellitus with diabetic peripheral angiopathy without gangrene; E11.40 Type 2 diabetes mellitus with diabetic neuropathy, unspecified; K21.9 Gastro-esophageal reflux disease without esophagitis; Z86.711 Personal history of pulmonary embolism; Z89.411 Acquired absence of right great toe; Z86.718 Personal history of other venous thrombosis and embolism | CPT/HCPCS: 82962; G0277; 99183 ==

== ENCOUNTER 2017-12-14 08:05 | Outpatient (CLI) | payer BC ==
[2017-12-14] MEDS ORDERED: XYLOCAINE TOPICAL 4% TP ONE (12:00)
== END 2017-12-14 08:06 | disposition home or self-care (01) ==
LOC: WOUND 08:05
PROVIDERS: ATTEND Surgery
DX: T87.89 Other complications of amputation stump (principal); E11.621 Type 2 diabetes mellitus with foot ulcer; L97.513 Non-pressure chronic ulcer of other part of right foot with necrosis of muscle; E11.40 Type 2 diabetes mellitus with diabetic neuropathy, unspecified; K21.9 Gastro-esophageal reflux disease without esophagitis; E11.51 Type 2 diabetes mellitus with diabetic peripheral angiopathy without gangrene; Z86.711 Personal history of pulmonary embolism; Z89.411 Acquired absence of right great toe; Z86.718 Personal history of other venous thrombosis and embolism; Y83.5 Amputation of limb(s) as the cause of abnormal reaction of the patient, or of later complication, without mention of misadventure at the time of the procedure
CPT/HCPCS: 11042; 11045; 82962; 97605; G0277; 99183

== ENCOUNTER 2017-12-15 08:02 | Outpatient (CLI) | payer BC | END 2017-12-15 08:03 | disposition home or self-care (01) | LOC: WOUND 08:02 | PROVIDERS: ATTEND Surgery | DX: T87.89 Other complications of amputation stump (principal); E11.621 Type 2 diabetes mellitus with foot ulcer; L97.513 Non-pressure chronic ulcer of other part of right foot with necrosis of muscle; E11.40 Type 2 diabetes mellitus with diabetic neuropathy, unspecified; K21.9 Gastro-esophageal reflux disease without esophagitis; E11.51 Type 2 diabetes mellitus with diabetic peripheral angiopathy without gangrene; Z86.711 Personal history of pulmonary embolism; Z86.718 Personal history of other venous thrombosis and embolism; Y83.5 Amputation of limb(s) as the cause of abnormal reaction of the patient, or of later complication, without mention of misadventure at the time of the procedure | CPT/HCPCS: 82962; G0277; 99183 ==

== ENCOUNTER 2017-12-16 08:19 | Outpatient (CLI) | payer BC | END 2017-12-16 08:20 | disposition home or self-care (01) | LOC: WOUND 08:19 | PROVIDERS: ATTEND Surgery | DX: T87.89 Other complications of amputation stump (principal); E11.621 Type 2 diabetes mellitus with foot ulcer; L97.513 Non-pressure chronic ulcer of other part of right foot with necrosis of muscle; E11.40 Type 2 diabetes mellitus with diabetic neuropathy, unspecified; K21.9 Gastro-esophageal reflux disease without esophagitis; E11.51 Type 2 diabetes mellitus with diabetic peripheral angiopathy without gangrene; Z86.711 Personal history of pulmonary embolism; Z86.718 Personal history of other venous thrombosis and embolism; Y83.5 Amputation of limb(s) as the cause of abnormal reaction of the patient, or of later complication, without mention of misadventure at the time of the procedure | CPT/HCPCS: 82962; G0277; 99183 ==

== ENCOUNTER 2017-12-19 08:07 | Outpatient (CLI) | payer BC | END 2017-12-19 08:08 | disposition home or self-care (01) | LOC: WOUND 08:07 | PROVIDERS: ATTEND Surgery | DX: T87.89 Other complications of amputation stump (principal); E11.621 Type 2 diabetes mellitus with foot ulcer; L97.513 Non-pressure chronic ulcer of other part of right foot with necrosis of muscle; E11.40 Type 2 diabetes mellitus with diabetic neuropathy, unspecified; K21.9 Gastro-esophageal reflux disease without esophagitis; E11.51 Type 2 diabetes mellitus with diabetic peripheral angiopathy without gangrene; Z89.411 Acquired absence of right great toe; Z86.718 Personal history of other venous thrombosis and embolism; Z86.711 Personal history of pulmonary embolism; Y83.5 Amputation of limb(s) as the cause of abnormal reaction of the patient, or of later complication, without mention of misadventure at the time of the procedure | CPT/HCPCS: 82962; G0463; 99214 ==

== ENCOUNTER 2017-12-20 08:16 | Outpatient (CLI) | payer BC | END 2017-12-20 08:17 | disposition home or self-care (01) | LOC: WOUND 08:16 | PROVIDERS: ATTEND Surgery | DX: T87.89 Other complications of amputation stump (principal); E11.621 Type 2 diabetes mellitus with foot ulcer; L97.513 Non-pressure chronic ulcer of other part of right foot with necrosis of muscle; E11.40 Type 2 diabetes mellitus with diabetic neuropathy, unspecified; Y83.5 Amputation of limb(s) as the cause of abnormal reaction of the patient, or of later complication, without mention of misadventure at the time of the procedure | CPT/HCPCS: 82962; 97605; G0277; 99183 ==

== ENCOUNTER 2017-12-22 08:31 | Outpatient (CLI) | payer BC | END 2017-12-22 08:32 | disposition home or self-care (01) | LOC: WOUND 08:31 | PROVIDERS: ATTEND Surgery | DX: E11.621 Type 2 diabetes mellitus with foot ulcer (principal); L97.513 Non-pressure chronic ulcer of other part of right foot with necrosis of muscle; E11.40 Type 2 diabetes mellitus with diabetic neuropathy, unspecified; Z89.411 Acquired absence of right great toe | CPT/HCPCS: 82962; G0277; 99183 ==

== ENCOUNTER 2017-12-23 08:26 | Outpatient (CLI) | payer BC ==
[2017-12-23] MEDS ORDERED: XYLOCAINE TOPICAL 4% TP ONE ×2 (10:44→10:47)
== END 2017-12-23 08:27 | disposition home or self-care (01) ==
LOC: WOUND 08:26
PROVIDERS: ATTEND Surgery
DX: T81.89XD Other complications of procedures, not elsewhere classified, subsequent encounter (principal); E11.621 Type 2 diabetes mellitus with foot ulcer; L97.513 Non-pressure chronic ulcer of other part of right foot with necrosis of muscle; E11.40 Type 2 diabetes mellitus with diabetic neuropathy, unspecified; Z89.411 Acquired absence of right great toe; Y83.8 Other surgical procedures as the cause of abnormal reaction of the patient, or of later complication, without mention of misadventure at the time of the procedure
CPT/HCPCS: 11042; 11045; 82962; 97605; G0277; 99183

== ENCOUNTER 2017-12-26 08:26 | Outpatient (CLI) | payer BC | END 2017-12-26 08:27 | disposition home or self-care (01) | LOC: WOUND 08:26 | PROVIDERS: ATTEND Surgery | DX: E11.621 Type 2 diabetes mellitus with foot ulcer (principal); L97.513 Non-pressure chronic ulcer of other part of right foot with necrosis of muscle; E11.40 Type 2 diabetes mellitus with diabetic neuropathy, unspecified; E11.51 Type 2 diabetes mellitus with diabetic peripheral angiopathy without gangrene; K21.9 Gastro-esophageal reflux disease without esophagitis; Z86.711 Personal history of pulmonary embolism; Z89.411 Acquired absence of right great toe; Z86.718 Personal history of other venous thrombosis and embolism | CPT/HCPCS: 82962; G0277; 99183 ==

== ENCOUNTER 2017-12-28 08:21 | Outpatient (CLI) | payer BC ==
[2017-12-28] MEDS ORDERED: XYLOCAINE TOPICAL 4% TP ONE ×2 (09:11→09:46)
[2017-12-28] MEDS ORDERED: SILVER NITRATE TP ONE ×2 (09:46→09:51)
== END 2017-12-28 08:22 | disposition home or self-care (01) ==
LOC: WOUND 08:21
PROVIDERS: ATTEND Surgery
DX: T87.89 Other complications of amputation stump (principal); E11.621 Type 2 diabetes mellitus with foot ulcer; L97.513 Non-pressure chronic ulcer of other part of right foot with necrosis of muscle; E11.40 Type 2 diabetes mellitus with diabetic neuropathy, unspecified; E11.51 Type 2 diabetes mellitus with diabetic peripheral angiopathy without gangrene; K21.9 Gastro-esophageal reflux disease without esophagitis; Z86.718 Personal history of other venous thrombosis and embolism; Z89.411 Acquired absence of right great toe; Z86.711 Personal history of pulmonary embolism; Y83.5 Amputation of limb(s) as the cause of abnormal reaction of the patient, or of later complication, without mention of misadventure at the time of the procedure
CPT/HCPCS: 82962; 97605

== ENCOUNTER 2017-12-29 08:12 | Outpatient (CLI) | payer BC | END 2017-12-29 08:13 | disposition home or self-care (01) | LOC: WOUND 08:12 | PROVIDERS: ATTEND Surgery | DX: T87.89 Other complications of amputation stump (principal); E11.621 Type 2 diabetes mellitus with foot ulcer; L97.513 Non-pressure chronic ulcer of other part of right foot with necrosis of muscle; E11.40 Type 2 diabetes mellitus with diabetic neuropathy, unspecified; E11.51 Type 2 diabetes mellitus with diabetic peripheral angiopathy without gangrene; K21.9 Gastro-esophageal reflux disease without esophagitis; Z86.718 Personal history of other venous thrombosis and embolism; Z89.411 Acquired absence of right great toe; Z86.711 Personal history of pulmonary embolism; Y83.5 Amputation of limb(s) as the cause of abnormal reaction of the patient, or of later complication, without mention of misadventure at the time of the procedure | CPT/HCPCS: 82962; G0277; 99183 ==

== ENCOUNTER 2018-01-02 08:26 | Outpatient (CLI) | payer BC | END 2018-01-02 08:27 | disposition home or self-care (01) | LOC: WOUND 08:26 | PROVIDERS: ATTEND Surgery | DX: T87.89 Other complications of amputation stump (principal); E11.621 Type 2 diabetes mellitus with foot ulcer; L97.513 Non-pressure chronic ulcer of other part of right foot with necrosis of muscle; E11.40 Type 2 diabetes mellitus with diabetic neuropathy, unspecified; E11.51 Type 2 diabetes mellitus with diabetic peripheral angiopathy without gangrene; K21.9 Gastro-esophageal reflux disease without esophagitis; Z86.718 Personal history of other venous thrombosis and embolism; Z89.411 Acquired absence of right great toe; Z86.711 Personal history of pulmonary embolism; Y83.5 Amputation of limb(s) as the cause of abnormal reaction of the patient, or of later complication, without mention of misadventure at the time of the procedure | CPT/HCPCS: 82962; G0277; 99183 ==

== ENCOUNTER 2018-01-03 08:28 | Outpatient (CLI) | payer BC | END 2018-01-03 08:29 | disposition home or self-care (01) | LOC: WOUND 08:28 | PROVIDERS: ATTEND Surgery | DX: T87.89 Other complications of amputation stump (principal); E11.621 Type 2 diabetes mellitus with foot ulcer; L97.513 Non-pressure chronic ulcer of other part of right foot with necrosis of muscle; E11.40 Type 2 diabetes mellitus with diabetic neuropathy, unspecified; E11.51 Type 2 diabetes mellitus with diabetic peripheral angiopathy without gangrene; K21.9 Gastro-esophageal reflux disease without esophagitis; Z86.718 Personal history of other venous thrombosis and embolism; Z89.411 Acquired absence of right great toe; Z86.711 Personal history of pulmonary embolism; Y83.5 Amputation of limb(s) as the cause of abnormal reaction of the patient, or of later complication, without mention of misadventure at the time of the procedure | CPT/HCPCS: 82962; G0277; 99183 ==

== ENCOUNTER 2018-01-04 08:08 | Outpatient (CLI) | payer BC ==
[2018-01-04] MEDS ORDERED: XYLOCAINE TOPICAL 4% TP ONE ×2 (10:10→10:12)
[2018-01-04] MEDS ORDERED: SILVER NITRATE TP ONE (10:52)
== END 2018-01-04 08:09 | disposition home or self-care (01) ==
LOC: WOUND 08:08
PROVIDERS: ATTEND Surgery
DX: T87.89 Other complications of amputation stump (principal); E11.621 Type 2 diabetes mellitus with foot ulcer; L97.513 Non-pressure chronic ulcer of other part of right foot with necrosis of muscle; E11.40 Type 2 diabetes mellitus with diabetic neuropathy, unspecified; E11.51 Type 2 diabetes mellitus with diabetic peripheral angiopathy without gangrene; K21.9 Gastro-esophageal reflux disease without esophagitis; Z86.718 Personal history of other venous thrombosis and embolism; Z86.711 Personal history of pulmonary embolism; Y83.5 Amputation of limb(s) as the cause of abnormal reaction of the patient, or of later complication, without mention of misadventure at the time of the procedure
CPT/HCPCS: 11042; 82962; 97605; G0277; 99183

== ENCOUNTER 2018-01-05 08:12 | Outpatient (CLI) | payer BC | END 2018-01-05 08:13 | disposition home or self-care (01) | LOC: WOUND 08:12 | PROVIDERS: ATTEND Surgery | DX: T87.89 Other complications of amputation stump (principal); E11.621 Type 2 diabetes mellitus with foot ulcer; L97.513 Non-pressure chronic ulcer of other part of right foot with necrosis of muscle; E11.40 Type 2 diabetes mellitus with diabetic neuropathy, unspecified; E11.51 Type 2 diabetes mellitus with diabetic peripheral angiopathy without gangrene; K21.9 Gastro-esophageal reflux disease without esophagitis; Z86.718 Personal history of other venous thrombosis and embolism; Z89.411 Acquired absence of right great toe; Z86.711 Personal history of pulmonary embolism; Y83.5 Amputation of limb(s) as the cause of abnormal reaction of the patient, or of later complication, without mention of misadventure at the time of the procedure | CPT/HCPCS: 82962; G0277; 99183 ==

== ENCOUNTER 2018-01-06 08:06 | Outpatient (CLI) | payer BC | END 2018-01-06 08:07 | disposition home or self-care (01) | LOC: WOUND 08:06 | PROVIDERS: ATTEND Surgery | DX: T87.89 Other complications of amputation stump (principal); E11.621 Type 2 diabetes mellitus with foot ulcer; L97.513 Non-pressure chronic ulcer of other part of right foot with necrosis of muscle; E11.40 Type 2 diabetes mellitus with diabetic neuropathy, unspecified; E11.51 Type 2 diabetes mellitus with diabetic peripheral angiopathy without gangrene; K21.9 Gastro-esophageal reflux disease without esophagitis; Z86.718 Personal history of other venous thrombosis and embolism; Z89.411 Acquired absence of right great toe; Z86.711 Personal history of pulmonary embolism; Y83.5 Amputation of limb(s) as the cause of abnormal reaction of the patient, or of later complication, without mention of misadventure at the time of the procedure | CPT/HCPCS: 82962; G0277; 99183 ==

== ENCOUNTER 2018-01-09 08:11 | Outpatient (CLI) | payer BC | END 2018-01-09 08:12 | disposition home or self-care (01) | LOC: WOUND 08:11 | PROVIDERS: ATTEND Surgery | DX: T87.89 Other complications of amputation stump (principal); E11.621 Type 2 diabetes mellitus with foot ulcer; L97.513 Non-pressure chronic ulcer of other part of right foot with necrosis of muscle; E11.40 Type 2 diabetes mellitus with diabetic neuropathy, unspecified; E11.51 Type 2 diabetes mellitus with diabetic peripheral angiopathy without gangrene; K21.9 Gastro-esophageal reflux disease without esophagitis; Z86.718 Personal history of other venous thrombosis and embolism; Z89.411 Acquired absence of right great toe; Z86.711 Personal history of pulmonary embolism; Y83.5 Amputation of limb(s) as the cause of abnormal reaction of the patient, or of later complication, without mention of misadventure at the time of the procedure | CPT/HCPCS: 82962; G0277; 99183 ==

== ENCOUNTER 2018-01-10 08:12 | Outpatient (CLI) | payer BC | END 2018-01-10 08:13 | disposition home or self-care (01) | LOC: WOUND 08:12 | PROVIDERS: ATTEND Surgery | DX: T87.89 Other complications of amputation stump (principal); E11.621 Type 2 diabetes mellitus with foot ulcer; L97.513 Non-pressure chronic ulcer of other part of right foot with necrosis of muscle; E11.40 Type 2 diabetes mellitus with diabetic neuropathy, unspecified; E11.51 Type 2 diabetes mellitus with diabetic peripheral angiopathy without gangrene; K21.9 Gastro-esophageal reflux disease without esophagitis; Z86.718 Personal history of other venous thrombosis and embolism; Z89.411 Acquired absence of right great toe; Z86.711 Personal history of pulmonary embolism; Y83.5 Amputation of limb(s) as the cause of abnormal reaction of the patient, or of later complication, without mention of misadventure at the time of the procedure | CPT/HCPCS: 82962; G0277; 99183 ==

== ENCOUNTER 2018-01-11 08:22 | Outpatient (CLI) | payer BC ==
[2018-01-11] MEDS ORDERED: SILVER NITRATE TP ONE (10:49)
[2018-01-13] MEDS ORDERED: XYLOCAINE TOPICAL 4% TP ONE (16:58)
[2018-01-13] MEDS ORDERED: SILVER NITRATE TP ONE (16:58)
== END 2018-01-11 08:23 | disposition home or self-care (01) ==
LOC: WOUND 08:22
PROVIDERS: ATTEND Surgery
DX: T87.89 Other complications of amputation stump (principal); E11.621 Type 2 diabetes mellitus with foot ulcer; L97.513 Non-pressure chronic ulcer of other part of right foot with necrosis of muscle; E11.40 Type 2 diabetes mellitus with diabetic neuropathy, unspecified; E11.51 Type 2 diabetes mellitus with diabetic peripheral angiopathy without gangrene; K21.9 Gastro-esophageal reflux disease without esophagitis; Z86.718 Personal history of other venous thrombosis and embolism; Z89.411 Acquired absence of right great toe; Z86.711 Personal history of pulmonary embolism; Y83.5 Amputation of limb(s) as the cause of abnormal reaction of the patient, or of later complication, without mention of misadventure at the time of the procedure
CPT/HCPCS: 11042; 82962; 97605; G0277; 99183

== ENCOUNTER 2018-01-12 08:10 | Outpatient (CLI) | payer BC | END 2018-01-12 08:11 | disposition home or self-care (01) | LOC: WOUND 08:10 | PROVIDERS: ATTEND Surgery | DX: T87.89 Other complications of amputation stump (principal); E11.621 Type 2 diabetes mellitus with foot ulcer; L97.513 Non-pressure chronic ulcer of other part of right foot with necrosis of muscle; E11.40 Type 2 diabetes mellitus with diabetic neuropathy, unspecified; E11.51 Type 2 diabetes mellitus with diabetic peripheral angiopathy without gangrene; K21.9 Gastro-esophageal reflux disease without esophagitis; Z86.718 Personal history of other venous thrombosis and embolism; Z89.411 Acquired absence of right great toe; Z86.711 Personal history of pulmonary embolism; Y83.5 Amputation of limb(s) as the cause of abnormal reaction of the patient, or of later complication, without mention of misadventure at the time of the procedure | CPT/HCPCS: 82962; G0277; 99183 ==

== ENCOUNTER 2018-01-13 08:07 | Outpatient (CLI) | payer BC | END 2018-01-13 08:08 | disposition home or self-care (01) | LOC: WOUND 08:07 | PROVIDERS: ATTEND Surgery | DX: T87.89 Other complications of amputation stump (principal); E11.621 Type 2 diabetes mellitus with foot ulcer; L97.513 Non-pressure chronic ulcer of other part of right foot with necrosis of muscle; E11.40 Type 2 diabetes mellitus with diabetic neuropathy, unspecified; E11.51 Type 2 diabetes mellitus with diabetic peripheral angiopathy without gangrene; K21.9 Gastro-esophageal reflux disease without esophagitis; Z86.718 Personal history of other venous thrombosis and embolism; Z89.411 Acquired absence of right great toe; Z86.711 Personal history of pulmonary embolism; Y83.5 Amputation of limb(s) as the cause of abnormal reaction of the patient, or of later complication, without mention of misadventure at the time of the procedure | CPT/HCPCS: 82962; G0277; 99183 ==

== ENCOUNTER 2018-01-16 07:58 | Outpatient (CLI) | payer BC | END 2018-01-16 07:59 | disposition home or self-care (01) | LOC: WOUND 07:58 | PROVIDERS: ATTEND Surgery | DX: T87.89 Other complications of amputation stump (principal); E11.621 Type 2 diabetes mellitus with foot ulcer; L97.513 Non-pressure chronic ulcer of other part of right foot with necrosis of muscle; E11.40 Type 2 diabetes mellitus with diabetic neuropathy, unspecified; E11.51 Type 2 diabetes mellitus with diabetic peripheral angiopathy without gangrene; K21.9 Gastro-esophageal reflux disease without esophagitis; Z86.718 Personal history of other venous thrombosis and embolism; Z86.711 Personal history of pulmonary embolism; Y83.5 Amputation of limb(s) as the cause of abnormal reaction of the patient, or of later complication, without mention of misadventure at the time of the procedure | CPT/HCPCS: 82962; G0277; 99183 ==

== ENCOUNTER 2018-01-17 08:05 | Outpatient (CLI) | payer BC | END 2018-01-17 08:06 | disposition home or self-care (01) | LOC: WOUND 08:05 | PROVIDERS: ATTEND Surgery | DX: R73.09 Other abnormal glucose (principal) | CPT/HCPCS: 82962 ==

== ENCOUNTER 2018-01-18 10:53 | Outpatient (CLI) | payer BC ==
[2018-01-18] MEDS ORDERED: XYLOCAINE TOPICAL 4% TP ONE ×2 (11:19→11:43)
[2018-01-18] MEDS ORDERED: SILVER NITRATE TP ONE (12:19)
== END 2018-01-18 10:54 | disposition home or self-care (01) ==
LOC: WOUND 10:53
PROVIDERS: ATTEND Surgery
DX: T87.89 Other complications of amputation stump (principal); E11.621 Type 2 diabetes mellitus with foot ulcer; L97.513 Non-pressure chronic ulcer of other part of right foot with necrosis of muscle; E11.40 Type 2 diabetes mellitus with diabetic neuropathy, unspecified; E11.51 Type 2 diabetes mellitus with diabetic peripheral angiopathy without gangrene; K21.9 Gastro-esophageal reflux disease without esophagitis; Z86.718 Personal history of other venous thrombosis and embolism; Z89.411 Acquired absence of right great toe; Z86.711 Personal history of pulmonary embolism; Y83.5 Amputation of limb(s) as the cause of abnormal reaction of the patient, or of later complication, without mention of misadventure at the time of the procedure
CPT/HCPCS: 97605

== ENCOUNTER 2018-01-19 08:04 | Outpatient (CLI) | payer BC | END 2018-01-19 08:05 | disposition home or self-care (01) | LOC: WOUND 08:04 | PROVIDERS: ATTEND Surgery | DX: T87.89 Other complications of amputation stump (principal); E11.621 Type 2 diabetes mellitus with foot ulcer; L97.513 Non-pressure chronic ulcer of other part of right foot with necrosis of muscle; E11.40 Type 2 diabetes mellitus with diabetic neuropathy, unspecified; E11.51 Type 2 diabetes mellitus with diabetic peripheral angiopathy without gangrene; K21.9 Gastro-esophageal reflux disease without esophagitis; Z86.718 Personal history of other venous thrombosis and embolism; Z89.411 Acquired absence of right great toe; Z86.711 Personal history of pulmonary embolism; Y83.5 Amputation of limb(s) as the cause of abnormal reaction of the patient, or of later complication, without mention of misadventure at the time of the procedure | CPT/HCPCS: 82962; G0277; 99183 ==

== ENCOUNTER 2018-01-20 08:59 | Outpatient (CLI) | payer BC | END 2018-01-20 09:00 | disposition home or self-care (01) | LOC: WOUND 08:59 | PROVIDERS: ATTEND Surgery | DX: T87.89 Other complications of amputation stump (principal); E11.621 Type 2 diabetes mellitus with foot ulcer; L97.513 Non-pressure chronic ulcer of other part of right foot with necrosis of muscle; E11.40 Type 2 diabetes mellitus with diabetic neuropathy, unspecified; E11.51 Type 2 diabetes mellitus with diabetic peripheral angiopathy without gangrene; K21.9 Gastro-esophageal reflux disease without esophagitis; Z86.718 Personal history of other venous thrombosis and embolism; Z86.711 Personal history of pulmonary embolism; Y83.5 Amputation of limb(s) as the cause of abnormal reaction of the patient, or of later complication, without mention of misadventure at the time of the procedure | CPT/HCPCS: 82962; G0277; 99183 ==

== ENCOUNTER 2018-01-23 08:07 | Outpatient (CLI) | payer BC | END 2018-01-23 08:08 | disposition home or self-care (01) | LOC: WOUND 08:07 | PROVIDERS: ATTEND Surgery | DX: T87.89 Other complications of amputation stump (principal); E11.621 Type 2 diabetes mellitus with foot ulcer; L97.513 Non-pressure chronic ulcer of other part of right foot with necrosis of muscle; E11.40 Type 2 diabetes mellitus with diabetic neuropathy, unspecified; E11.51 Type 2 diabetes mellitus with diabetic peripheral angiopathy without gangrene; K21.9 Gastro-esophageal reflux disease without esophagitis; Z86.718 Personal history of other venous thrombosis and embolism; Z86.711 Personal history of pulmonary embolism; Y83.5 Amputation of limb(s) as the cause of abnormal reaction of the patient, or of later complication, without mention of misadventure at the time of the procedure | CPT/HCPCS: 82962; G0277; 99183 ==

== ENCOUNTER 2018-01-27 08:02 | Outpatient (CLI) | payer BC | END 2018-01-27 08:03 | disposition home or self-care (01) | LOC: WOUND 08:02 | PROVIDERS: ATTEND Surgery | DX: T87.89 Other complications of amputation stump (principal); E11.621 Type 2 diabetes mellitus with foot ulcer; L97.513 Non-pressure chronic ulcer of other part of right foot with necrosis of muscle; E11.40 Type 2 diabetes mellitus with diabetic neuropathy, unspecified; E11.51 Type 2 diabetes mellitus with diabetic peripheral angiopathy without gangrene; K21.9 Gastro-esophageal reflux disease without esophagitis; Z86.718 Personal history of other venous thrombosis and embolism; Z86.711 Personal history of pulmonary embolism; Y83.5 Amputation of limb(s) as the cause of abnormal reaction of the patient, or of later complication, without mention of misadventure at the time of the procedure | CPT/HCPCS: 82962; G0277; 99183 ==

== ENCOUNTER 2018-01-30 08:03 | Outpatient (CLI) | payer BC | END 2018-01-30 08:04 | disposition home or self-care (01) | LOC: WOUND 08:03 | PROVIDERS: ATTEND Surgery | DX: T87.89 Other complications of amputation stump (principal); E11.621 Type 2 diabetes mellitus with foot ulcer; L97.513 Non-pressure chronic ulcer of other part of right foot with necrosis of muscle; E11.40 Type 2 diabetes mellitus with diabetic neuropathy, unspecified; E11.51 Type 2 diabetes mellitus with diabetic peripheral angiopathy without gangrene; K21.9 Gastro-esophageal reflux disease without esophagitis; Z86.718 Personal history of other venous thrombosis and embolism; Z86.711 Personal history of pulmonary embolism; Y83.5 Amputation of limb(s) as the cause of abnormal reaction of the patient, or of later complication, without mention of misadventure at the time of the procedure | CPT/HCPCS: 82962; G0277; 99183 ==

== ENCOUNTER → 2018-01-31 | Outpatient (CLI) | payer BC | END | disposition home or self-care (01) | LOC: WOUND 08:08 | PROVIDERS: ATTEND Surgery | DX: T87.89 Other complications of amputation stump (principal); E11.621 Type 2 diabetes mellitus with foot ulcer; L97.513 Non-pressure chronic ulcer of other part of right foot with necrosis of muscle; E11.40 Type 2 diabetes mellitus with diabetic neuropathy, unspecified; E11.51 Type 2 diabetes mellitus with diabetic peripheral angiopathy without gangrene; K21.9 Gastro-esophageal reflux disease without esophagitis; Z86.718 Personal history of other venous thrombosis and embolism; Z86.711 Personal history of pulmonary embolism; Y83.5 Amputation of limb(s) as the cause of abnormal reaction of the patient, or of later complication, without mention of misadventure at the time of the procedure | CPT/HCPCS: 82962; G0277; 99183 ==

== ENCOUNTER → 2018-02-01 | Outpatient (CLI) | payer BC | END | disposition home or self-care (01) | LOC: WOUND 08:07 | PROVIDERS: ATTEND Surgery | DX: T87.89 Other complications of amputation stump (principal); E11.621 Type 2 diabetes mellitus with foot ulcer; L97.513 Non-pressure chronic ulcer of other part of right foot with necrosis of muscle; E11.40 Type 2 diabetes mellitus with diabetic neuropathy, unspecified; E11.51 Type 2 diabetes mellitus with diabetic peripheral angiopathy without gangrene; K21.9 Gastro-esophageal reflux disease without esophagitis; Z86.718 Personal history of other venous thrombosis and embolism; Z86.711 Personal history of pulmonary embolism; Y83.5 Amputation of limb(s) as the cause of abnormal reaction of the patient, or of later complication, without mention of misadventure at the time of the procedure | CPT/HCPCS: 11042; 82962; G0277; 99183 ==

== ENCOUNTER 2018-02-03 08:02 | Outpatient (CLI) | payer BC | END 2018-02-03 08:03 | disposition home or self-care (01) | LOC: WOUND 08:02 | PROVIDERS: ATTEND Surgery | DX: T87.89 Other complications of amputation stump (principal); E11.621 Type 2 diabetes mellitus with foot ulcer; L97.513 Non-pressure chronic ulcer of other part of right foot with necrosis of muscle; E11.40 Type 2 diabetes mellitus with diabetic neuropathy, unspecified; E11.51 Type 2 diabetes mellitus with diabetic peripheral angiopathy without gangrene; K21.9 Gastro-esophageal reflux disease without esophagitis; Z86.718 Personal history of other venous thrombosis and embolism; Z86.711 Personal history of pulmonary embolism; Y83.5 Amputation of limb(s) as the cause of abnormal reaction of the patient, or of later complication, without mention of misadventure at the time of the procedure | CPT/HCPCS: 82962; G0277; 99183 ==

== ENCOUNTER 2018-02-06 08:13 | Outpatient (CLI) | payer BC | END 2018-02-06 08:14 | disposition home or self-care (01) | LOC: WOUND 08:13 | PROVIDERS: ATTEND Surgery | DX: T87.89 Other complications of amputation stump (principal); E11.621 Type 2 diabetes mellitus with foot ulcer; L97.513 Non-pressure chronic ulcer of other part of right foot with necrosis of muscle; E11.40 Type 2 diabetes mellitus with diabetic neuropathy, unspecified; E11.51 Type 2 diabetes mellitus with diabetic peripheral angiopathy without gangrene; K21.9 Gastro-esophageal reflux disease without esophagitis; Z86.718 Personal history of other venous thrombosis and embolism; Z86.711 Personal history of pulmonary embolism; Y83.5 Amputation of limb(s) as the cause of abnormal reaction of the patient, or of later complication, without mention of misadventure at the time of the procedure | CPT/HCPCS: 82962; G0277; 99183 ==

== ENCOUNTER 2018-02-07 07:57 | Outpatient (CLI) | payer BC | END 2018-02-07 07:58 | disposition home or self-care (01) | LOC: WOUND 07:57 | PROVIDERS: ATTEND Surgery | DX: T87.89 Other complications of amputation stump (principal); E11.621 Type 2 diabetes mellitus with foot ulcer; L97.513 Non-pressure chronic ulcer of other part of right foot with necrosis of muscle; E11.40 Type 2 diabetes mellitus with diabetic neuropathy, unspecified; E11.51 Type 2 diabetes mellitus with diabetic peripheral angiopathy without gangrene; K21.9 Gastro-esophageal reflux disease without esophagitis; Z86.718 Personal history of other venous thrombosis and embolism; Z86.711 Personal history of pulmonary embolism; Y83.5 Amputation of limb(s) as the cause of abnormal reaction of the patient, or of later complication, without mention of misadventure at the time of the procedure | CPT/HCPCS: 82962; G0277; 99183 ==

== ENCOUNTER 2018-02-08 08:18 | Outpatient (CLI) | payer BC ==
[2018-02-08] MEDS ORDERED: XYLOCAINE TOPICAL 4% TP ONE ×2 (11:00→11:06)
[2018-02-08] MEDS ORDERED: SILVER NITRATE TP ONE ×2 (11:13→11:18)
== END 2018-02-08 08:19 | disposition home or self-care (01) ==
LOC: WOUND 08:18
PROVIDERS: ATTEND Surgery
DX: T87.89 Other complications of amputation stump (principal); E11.621 Type 2 diabetes mellitus with foot ulcer; L97.513 Non-pressure chronic ulcer of other part of right foot with necrosis of muscle; E11.40 Type 2 diabetes mellitus with diabetic neuropathy, unspecified; E11.51 Type 2 diabetes mellitus with diabetic peripheral angiopathy without gangrene; K21.9 Gastro-esophageal reflux disease without esophagitis; Z86.718 Personal history of other venous thrombosis and embolism; Z86.711 Personal history of pulmonary embolism; Y83.5 Amputation of limb(s) as the cause of abnormal reaction of the patient, or of later complication, without mention of misadventure at the time of the procedure
CPT/HCPCS: 11042; 82962; G0277; 99183

== ENCOUNTER 2018-02-09 07:53 | Outpatient (CLI) | payer BC | END 2018-02-09 07:54 | disposition home or self-care (01) | LOC: WOUND 07:53 | PROVIDERS: ATTEND Surgery | DX: T87.89 Other complications of amputation stump (principal); E11.621 Type 2 diabetes mellitus with foot ulcer; L97.513 Non-pressure chronic ulcer of other part of right foot with necrosis of muscle; E11.40 Type 2 diabetes mellitus with diabetic neuropathy, unspecified; E11.51 Type 2 diabetes mellitus with diabetic peripheral angiopathy without gangrene; K21.9 Gastro-esophageal reflux disease without esophagitis; Z86.718 Personal history of other venous thrombosis and embolism; Z86.711 Personal history of pulmonary embolism; Y83.5 Amputation of limb(s) as the cause of abnormal reaction of the patient, or of later complication, without mention of misadventure at the time of the procedure | CPT/HCPCS: 82962; G0277; 99183 ==

== ENCOUNTER 2018-02-10 07:57 | Outpatient (CLI) | payer BC | END 2018-02-10 07:58 | disposition home or self-care (01) | LOC: WOUND 07:57 | PROVIDERS: ATTEND Surgery | DX: T87.89 Other complications of amputation stump (principal); E11.621 Type 2 diabetes mellitus with foot ulcer; L97.513 Non-pressure chronic ulcer of other part of right foot with necrosis of muscle; E11.40 Type 2 diabetes mellitus with diabetic neuropathy, unspecified; E11.51 Type 2 diabetes mellitus with diabetic peripheral angiopathy without gangrene; K21.9 Gastro-esophageal reflux disease without esophagitis; Z86.718 Personal history of other venous thrombosis and embolism; Z86.711 Personal history of pulmonary embolism; Y83.5 Amputation of limb(s) as the cause of abnormal reaction of the patient, or of later complication, without mention of misadventure at the time of the procedure | CPT/HCPCS: 82962; G0277; 99183 ==

== ENCOUNTER 2018-02-13 07:57 | Outpatient (CLI) | payer BC | END 2018-02-13 07:58 | disposition home or self-care (01) | LOC: WOUND 07:57 | PROVIDERS: ATTEND Surgery | DX: T87.89 Other complications of amputation stump (principal); E11.621 Type 2 diabetes mellitus with foot ulcer; L97.513 Non-pressure chronic ulcer of other part of right foot with necrosis of muscle; E11.40 Type 2 diabetes mellitus with diabetic neuropathy, unspecified; E11.51 Type 2 diabetes mellitus with diabetic peripheral angiopathy without gangrene; K21.9 Gastro-esophageal reflux disease without esophagitis; Z86.718 Personal history of other venous thrombosis and embolism; Z86.711 Personal history of pulmonary embolism; Y83.5 Amputation of limb(s) as the cause of abnormal reaction of the patient, or of later complication, without mention of misadventure at the time of the procedure | CPT/HCPCS: 82962; G0277; 99183 ==

== ENCOUNTER 2018-02-14 07:55 | Outpatient (CLI) | payer BC | END 2018-02-14 07:56 | disposition home or self-care (01) | LOC: WOUND 07:55 | PROVIDERS: ATTEND Surgery | DX: T87.89 Other complications of amputation stump (principal); E11.621 Type 2 diabetes mellitus with foot ulcer; L97.513 Non-pressure chronic ulcer of other part of right foot with necrosis of muscle; E11.40 Type 2 diabetes mellitus with diabetic neuropathy, unspecified; E11.51 Type 2 diabetes mellitus with diabetic peripheral angiopathy without gangrene; K21.9 Gastro-esophageal reflux disease without esophagitis; Z86.718 Personal history of other venous thrombosis and embolism; Z86.711 Personal history of pulmonary embolism; Y83.5 Amputation of limb(s) as the cause of abnormal reaction of the patient, or of later complication, without mention of misadventure at the time of the procedure | CPT/HCPCS: 82962; G0277; 99183 ==

== ENCOUNTER 2018-02-16 07:58 | Outpatient (CLI) | payer BC | END 2018-02-16 07:59 | disposition home or self-care (01) | LOC: WOUND 07:58 | PROVIDERS: ATTEND Surgery | DX: T87.89 Other complications of amputation stump (principal); E11.621 Type 2 diabetes mellitus with foot ulcer; L97.513 Non-pressure chronic ulcer of other part of right foot with necrosis of muscle; E11.40 Type 2 diabetes mellitus with diabetic neuropathy, unspecified; E11.51 Type 2 diabetes mellitus with diabetic peripheral angiopathy without gangrene; K21.9 Gastro-esophageal reflux disease without esophagitis; Z86.718 Personal history of other venous thrombosis and embolism; Z86.711 Personal history of pulmonary embolism; Y83.5 Amputation of limb(s) as the cause of abnormal reaction of the patient, or of later complication, without mention of misadventure at the time of the procedure | CPT/HCPCS: 82962; G0277; 99183 ==

== ENCOUNTER 2018-02-17 08:04 | Outpatient (CLI) | payer BC | END 2018-02-17 08:05 | disposition home or self-care (01) | LOC: WOUND 08:04 | PROVIDERS: ATTEND Surgery | DX: T87.89 Other complications of amputation stump (principal); E11.621 Type 2 diabetes mellitus with foot ulcer; L97.513 Non-pressure chronic ulcer of other part of right foot with necrosis of muscle; E11.40 Type 2 diabetes mellitus with diabetic neuropathy, unspecified; E11.51 Type 2 diabetes mellitus with diabetic peripheral angiopathy without gangrene; K21.9 Gastro-esophageal reflux disease without esophagitis; Z86.718 Personal history of other venous thrombosis and embolism; Z86.711 Personal history of pulmonary embolism; Y83.5 Amputation of limb(s) as the cause of abnormal reaction of the patient, or of later complication, without mention of misadventure at the time of the procedure | CPT/HCPCS: 82962; G0277; 99183 ==

== ENCOUNTER 2018-03-01 10:40 | Outpatient (CLI) | payer BC ==
[2018-03-01] MEDS ORDERED: XYLOCAINE TOPICAL 4% TP ONE ×2 (10:48→11:24)
== END 2018-03-01 10:41 | disposition home or self-care (01) ==
LOC: WOUND 10:40
PROVIDERS: ATTEND Surgery
DX: T87.89 Other complications of amputation stump (principal); E11.621 Type 2 diabetes mellitus with foot ulcer; L97.513 Non-pressure chronic ulcer of other part of right foot with necrosis of muscle; E11.40 Type 2 diabetes mellitus with diabetic neuropathy, unspecified; E11.51 Type 2 diabetes mellitus with diabetic peripheral angiopathy without gangrene; K21.9 Gastro-esophageal reflux disease without esophagitis; Z86.718 Personal history of other venous thrombosis and embolism; Z86.711 Personal history of pulmonary embolism; Y83.5 Amputation of limb(s) as the cause of abnormal reaction of the patient, or of later complication, without mention of misadventure at the time of the procedure

== ENCOUNTER 2018-03-08 10:38 | Outpatient (CLI) | payer BC | END 2018-03-08 10:39 | disposition home or self-care (01) | LOC: WOUND 10:38 | PROVIDERS: ATTEND Surgery | DX: T87.89 Other complications of amputation stump (principal); E11.621 Type 2 diabetes mellitus with foot ulcer; L97.513 Non-pressure chronic ulcer of other part of right foot with necrosis of muscle; E11.40 Type 2 diabetes mellitus with diabetic neuropathy, unspecified; E11.51 Type 2 diabetes mellitus with diabetic peripheral angiopathy without gangrene; K21.9 Gastro-esophageal reflux disease without esophagitis; Z86.718 Personal history of other venous thrombosis and embolism; Z86.711 Personal history of pulmonary embolism; Y83.5 Amputation of limb(s) as the cause of abnormal reaction of the patient, or of later complication, without mention of misadventure at the time of the procedure ==

== ENCOUNTER 2018-03-15 10:37 | Outpatient (CLI) | payer BC ==
[2018-03-15] MEDS ORDERED: SILVER NITRATE TP ONE ×2 (12:12→15:47)
== END 2018-03-15 10:38 | disposition home or self-care (01) ==
LOC: WOUND 10:37
PROVIDERS: ATTEND Surgery
DX: T87.89 Other complications of amputation stump (principal); E11.621 Type 2 diabetes mellitus with foot ulcer; L97.513 Non-pressure chronic ulcer of other part of right foot with necrosis of muscle; E11.40 Type 2 diabetes mellitus with diabetic neuropathy, unspecified; E11.51 Type 2 diabetes mellitus with diabetic peripheral angiopathy without gangrene; K21.9 Gastro-esophageal reflux disease without esophagitis; Z86.718 Personal history of other venous thrombosis and embolism; Z86.711 Personal history of pulmonary embolism; Y83.5 Amputation of limb(s) as the cause of abnormal reaction of the patient, or of later complication, without mention of misadventure at the time of the procedure

== ENCOUNTER 2018-03-22 10:33 | Outpatient (CLI) | payer BC | END 2018-03-22 10:34 | disposition home or self-care (01) | LOC: WOUND 10:33 | PROVIDERS: ATTEND Surgery | DX: T87.89 Other complications of amputation stump (principal); E11.621 Type 2 diabetes mellitus with foot ulcer; L97.513 Non-pressure chronic ulcer of other part of right foot with necrosis of muscle; E11.40 Type 2 diabetes mellitus with diabetic neuropathy, unspecified; E11.51 Type 2 diabetes mellitus with diabetic peripheral angiopathy without gangrene; K21.9 Gastro-esophageal reflux disease without esophagitis; Z86.718 Personal history of other venous thrombosis and embolism; Z86.711 Personal history of pulmonary embolism; Y83.5 Amputation of limb(s) as the cause of abnormal reaction of the patient, or of later complication, without mention of misadventure at the time of the procedure ==

== ENCOUNTER 2018-06-19 08:02 | Outpatient (CLI) | payer OTHER, BC | END 2018-06-19 08:03 | disposition home or self-care (01) | LOC: WOUND 08:02 | PROVIDERS: ATTEND Surgery | DX: E11.621 Type 2 diabetes mellitus with foot ulcer (principal); L97.512 Non-pressure chronic ulcer of other part of right foot with fat layer exposed; E11.51 Type 2 diabetes mellitus with diabetic peripheral angiopathy without gangrene; K21.9 Gastro-esophageal reflux disease without esophagitis; Z86.711 Personal history of pulmonary embolism; Z86.718 Personal history of other venous thrombosis and embolism; Z89.411 Acquired absence of right great toe; Z89.421 Acquired absence of other right toe(s) ==

== ENCOUNTER 2018-07-03 08:02 | Outpatient (CLI) | payer BC, OTHER ==
[2018-07-03] MEDS ORDERED: XYLOCAINE TOPICAL 4% TP ONE (08:17)
== END 2018-07-03 08:03 | disposition home or self-care (01) ==
LOC: WOUND 08:02
PROVIDERS: ATTEND Surgery
DX: E11.621 Type 2 diabetes mellitus with foot ulcer (principal); L97.512 Non-pressure chronic ulcer of other part of right foot with fat layer exposed; E11.51 Type 2 diabetes mellitus with diabetic peripheral angiopathy without gangrene; K21.9 Gastro-esophageal reflux disease without esophagitis; Z86.711 Personal history of pulmonary embolism; Z86.718 Personal history of other venous thrombosis and embolism; Z89.411 Acquired absence of right great toe; Z89.421 Acquired absence of other right toe(s)

== ENCOUNTER 2018-07-24 13:59 | Outpatient (CLI) | payer OTHER, BC | END 2018-07-24 14:00 | disposition home or self-care (01) | LOC: WOUND 13:59 | CPT/HCPCS: 99213; G0463 ==

== ENCOUNTER 2019-04-05 08:19 | Outpatient (CLI) | payer BC ==
--- NOTE | 2019-04-05 16:48 | Mammography Report ---
DIGITAL SCREENING MAMMOGRAM WITH CAD, 04/05/2019 INDICATION: Routine screening mammography. TECHNIQUE: Digital bilateral 2D mammography was obtained in the craniocaudal and mediolateral obliq ue projections. This examination was interpreted with the benefit of Computer-Aided Detection analysi s. COMPARISON: 04/04/2018 FINDINGS: Breast Density: The breasts are heterogeneously dense, which may obscure small masses. There is no evidence of dominant mass, suspicious calcifications or architectural distortion in eithe r breast. Scattered bilateral benign calcifications. IMPRESSION: No mammographic evidence of malignancy. Follow up recommendation: Routine yearly BI-RADS Category 2: Benign. A "normal" or negative report should not discourage follow up or biopsy of a clinically significant f inding. A written summary of these findings will be mailed to the patient. The patient will be entered into a mammography reporting system which will generate a reminder letter for the patient's next appointmen t at the appropriate interval. The [employer] recommends yearly mammograms starting at age 40 and continuing as l anshu as a woman is in good health. Breast MRI is recommended for women with an approximate 20-25% or greater lifetime risk of breast cancer, including women with a strong family history of breast or ova toño cancer or who have been treated for Hodgkin's disease. Signer Name: Gilmar Birmingham MD Signed: 04/05/2019 4:44 PM Workstation Name: [id number]
== END 2019-04-05 08:20 | disposition home or self-care (01) ==
LOC: MAMMO 08:19
PROVIDERS: ATTEND Internal Medicine
DX: Z12.31 Encounter for screening mammogram for malignant neoplasm of breast (principal); I10 Essential (primary) hypertension; K21.9 Gastro-esophageal reflux disease without esophagitis; E11.9 Type 2 diabetes mellitus without complications; Z79.4 Long term (current) use of insulin
CPT/HCPCS: 77067

== ENCOUNTER 2019-06-01 16:15 | Emergency (ER) | payer BC ==
--- NOTE | 2019-06-01 17:11 | Event Note ---
ED Screening Note Date of service: 06/01/19 Time: 17:09 ED Screening Note: This is a 48 y.o. F. that presents to the ER with pelvic pain and hematuria for 2 days. + urinary frequency, pelvic pain, and hematuria - dysuria, back pain, vaginal discharge This initial assessment/diagnostic orders/clinical plan/treatment(s) is/are subject to change based on patients health status, clinical progression and re- assessment by fellow clinical providers in the ED. Further treatment and workup at subsequent clinical providers discretion. Patient/guardian urged not to elope from the ED as their condition may be serious if not clinically assessed and managed. Initial orders include: UA
[2019-06-01 18:25] LABS: Bilirubin,Urine NEG (Negative); Blood,Urine LG (Negative); Color,Urine Yellow (Yellow); Urobilinogen,Urine < 2.0 mg/dL (<2.0)
[2019-06-01 18:26] LABS: RBC,Urine > 182.0 /HPF (0.0-6.0)
--- NOTE | 2019-06-01 18:37 | Emergency Department Report ---
ED Female HPI - General Chief complaint: Urogenital-Female Stated complaint: ABDOMINAL PAIN Time Seen by Provider: 06/01/19 17:08 Source: patient Mode of arrival: Ambulatory Limitations: No Limitations - History of Present Illness Initial comments: 48-year-old -[place] female presents to the emergency room complaining of blood in her urine and lower abdominal pain onset 2 days ago. Patient reports she has intermittent back and pelvic pain. She admits to nausea no vomiting no fever no chills. Patient does have a past medical history of diabetes and factor V. MD Complaint: dysuria, pelvic pain Onset/Timin -: days(s) Location: suprapubic Radiation: R flank Severity: moderate Severity scale (0 -10): 5 Quality: sharp Consistency: intermittent Improves with: none Worsens with: none Are you Now?: No Associated Symptoms: abdominal pain, hematuria. denies: nausea/vomiting, fever/chills - Related Data Sexually active: Yes Home Medications Medication Instructions Recorded Confirmed Last Taken Aspirin [Aspirin BABY CHEW TAB] 81 mg PO QDAY 12/02/17 11/30/17 11/30/17 Previous Rx's Medication Instructions Recorded Last Taken Type Rivaroxaban [Xarelto] 20 mg PO QDAY tablet 08/02/17 11/30/17 Rx Amoxicillin/Potassium Clav 1 each PO BID #14 tablet 12/03/17 Unknown Rx [Augmentin 875-125 Tablet] Aspirin [Aspirin BABY CHEW TAB] 81 mg PO QDAY tab.chew 12/03/17 Unknown Rx Gabapentin 300 mg PO Q8HR #90 capsule 12/03/17 Unknown Rx Insulin Glargine,Hum.rec.anlog 30 units SQ QHS #30 vial 12/03/17 Unknown Rx [Lantus] Insulin Lispro [HumaLOG VIAL] 7 unit SUB-Q QAC #7 vial 12/03/17 Unknown Rx Rivaroxaban [Xarelto] 20 mg PO QDAY #30 tablet 12/03/17 Unknown Rx oxyCODONE /ACETAMINOPHEN [Percocet 1 tab PO Q6H PRN #30 tablet 12/03/17 Unknown Rx 5/325 mg] Cyclobenzaprine [Flexeril] 10 mg PO TID PRN #20 tablet 05/06/18 Unknown Rx oxyCODONE /ACETAMINOPHEN [Percocet 1 tab PO Q6HR PRN #10 tablet 05/06/18 Unknown Rx 5/325] Acetaminophen/Codeine [Tylenol 1 tab PO Q6H PRN #15 tab 11/01/18 Unknown Rx /Codeine # 3 tab] Clindamycin [Clindamycin CAP] 450 mg PO Q8HR #63 capsule 11/01/18 Unknown Rx Meclizine [Antivert] 25 mg PO TID PRN #30 tablet 11/01/18 Unknown Rx Nitrofurantoin [place]/M-Cryst 100 mg PO Q12HR 10 Days #20 capsule 06/01/19 Unknown Rx [Macrobid CAP] Allergies Allergy/AdvReac Type Severity Reaction Status Date / Time No Known Allergies Allergy Verified 06/01/19 16:22 ED Review of Systems ROS: Stated complaint: ABDOMINAL PAIN Other details as noted in HPI Comment: All other systems reviewed and negative ED Past Medical Hx - Past Medical History Previous Medical History?: Yes Hx Hypertension: Yes Hx Heart Attack/AMI: Yes Hx Congestive Heart Failure: No Hx Diabetes: Yes Hx Deep Vein Thrombosis: Yes Hx Pulmonary Embolism: Yes Hx GERD: Yes Hx Arthritis: Yes (in legs) Hx Asthma: No Hx COPD: No Hx HIV: No Additional medical history: DVT, PE, iron deficiency, MRSA, factor 5 gene,foot ulcer - Surgical History Past Surgical History?: Yes Hx Pacemaker: No Hx Internal Defibrillator: No Additional Surgical History: thyroid removed, venous ablasion. all toes amputat ed on right foot - Social History Smoking Status: Never Smoker Substance Use Type: None - Medications Home Medications: Home Medications Medication Instructions Recorded Confirmed Last Taken Type Rivaroxaban [Xarelto] 20 mg PO QDAY tablet 08/02/17 11/30/17 11/30/17 Rx Aspirin [Aspirin BABY CHEW TAB] 81 mg PO QDAY 12/02/17 11/30/17 11/30/17 History Amoxicillin/Potassium Clav 1 each PO BID #14 tablet 12/03/17 Unknown Rx [Augmentin 875-125 Tablet] Aspirin [Aspirin BABY CHEW TAB] 81 mg PO QDAY tab.chew 12/03/17 Unknown Rx Gabapentin 300 mg PO Q8HR #90 capsule 12/03/17 Unknown Rx Insulin Glargine,Hum.rec.anlog 30 units SQ QHS #30 vial 12/03/17 Unknown Rx [Lantus] Insulin Lispro [HumaLOG VIAL] 7 unit SUB-Q QAC #7 vial 12/03/17 Unknown Rx Rivaroxaban [Xarelto] 20 mg PO QDAY #30 tablet 12/03/17 Unknown Rx oxyCODONE /ACETAMINOPHEN [Percocet 1 tab PO Q6H PRN #30 tablet 12/03/17 Unknown Rx 5/325 mg] Cyclobenzaprine [Flexeril] 10 mg PO TID PRN #20 tablet 05/06/18 Unknown Rx oxyCODONE /ACETAMINOPHEN [Percocet 1 tab PO Q6HR PRN #10 tablet 05/06/18 Unknown Rx 5/325] Acetaminophen/Codeine [Tylenol 1 tab PO Q6H PRN #15 tab 11/01/18 Unknown Rx /Codeine # 3 tab] Clindamycin [Clindamycin CAP] 450 mg PO Q8HR #63 capsule 11/01/18 Unknown Rx Meclizine [Antivert] 25 mg PO TID PRN #30 tablet 11/01/18 Unknown Rx Nitrofurantoin [place]/M-Cryst 100 mg PO Q12HR 10 Days #20 capsule 06/01/19 Unknown Rx [Macrobid CAP] ED Physical Exam - General Limitations: No Limitations General appearance: alert, in no apparent distress - Head Head exam: Present: atraumatic, normocephalic - Eye Eye exam: Present: normal appearance - ENT ENT exam: Present: mucous membranes moist - Neck Neck exam: Present: normal inspection - Respiratory Respiratory exam: Present: normal lung sounds bilaterally. Absent: respiratory distress - Cardiovascular Cardiovascular Exam: Present: regular rate, normal rhythm. Absent: systolic murmur, diastolic murmur, rubs, gallop - GI/Abdominal GI/Abdominal exam: Present: soft, tenderness, normal bowel sounds. Absent: distended - Neurological Exam Neurological exam: Present: alert, oriented X3, normal gait - Psychiatric Psychiatric exam: Present: normal affect, normal mood - Skin Skin exam: Present: warm, dry, intact, normal color. Absent: rash ED Course Vital Signs 06/01/19 16:24 Temperature 98.3 F Pulse Rate 106 H Respiratory 18 Rate Blood Pressure 174/94 O2 Sat by Pulse 97 Oximetry ED Medical Decision Making - Medical Decision Making 48-year-old -[place] female presents to the emergency room complaining of blood in her urine and lower abdominal pain onset 2 days ago. Patient reports she has intermittent back and pelvic pain. She admits to nausea no vomiting no fever no chills. Patient does have a past medical history of diabetes and factor V. Since urine shows that she has a urinary tract infection we'll place her on Macrobid 100 mg by mouth twice a day for 10 days. Patient to increase her fluid intake and advance her diet as tolerated. Symptoms persist to follow up with her primary care provider. Critical care attestation.: If time is entered above; I have spent that time in minutes in the direct care of this critically ill patient, excluding procedure time. ED Disposition Clinical Impression: UTI (urinary tract infection) Disposition: TO HOME OR SELFCARE Is pt being admited?: No Does the pt Need Aspirin: No Condition: Stable Instructions: Urinary Tract Infection in Women (ED) Additional Instructions: Complete antibiotics. Increase her fluid intake advance her diet as tolerated. Prescriptions: Nitrofurantoin [place]/M-Cryst [Macrobid CAP] 100 mg PO Q12HR 10 Days #20 capsule Referrals: REYNALDO HANSON MD [Primary Care Provider] - 3-5 Days Forms: Work/School Release Form(ED)
[2019-06-01 19:24] VITALS: BP 134/75
== END 2019-06-01 19:20 | disposition home or self-care (01) ==
LOC: ED 16:15
DX: N39.0 Urinary tract infection, site not specified (principal); I10 Essential (primary) hypertension; E11.9 Type 2 diabetes mellitus without complications; K21.9 Gastro-esophageal reflux disease without esophagitis; M19.90 Unspecified osteoarthritis, unspecified site; Z86.718 Personal history of other venous thrombosis and embolism; Z79.01 Long term (current) use of anticoagulants; Z86.711 Personal history of pulmonary embolism; Z79.899 Other long term (current) drug therapy; Z79.4 Long term (current) use of insulin
CPT/HCPCS: 81001; 87086

== ENCOUNTER 2019-06-25 10:08 | Outpatient (CLI) | payer BC ==
[2019-06-25 10:43] LABS: Hematocrit 35.8 % (30.3-42.9); Hemoglobin 11.7 gm/dl (10.1-14.3); Mean Corpuscular HGB Conc 33 % (30-34); Mean Corpuscular Volume 88 fl (79-97); Platelet Count 336 K/mm3 (140-440); Red Blood Count 4.08 M/mm3 (3.65-5.03)
[2019-06-25 11:07] LABS: Albumin 3.3 g/dL (3.9-5); Calcium 9.4 mg/dL (8.4-10.2); Chol/HDL Ratio 2.84 %
== END 2019-06-25 10:09 | disposition home or self-care (01) ==
LOC: LAB 10:08
PROVIDERS: ATTEND Internal Medicine
DX: E11.9 Type 2 diabetes mellitus without complications (principal)
CPT/HCPCS: 36415; 80053; 80061; 83036; 85027

== ENCOUNTER 2019-06-27 20:26 | Inpatient (IN) | payer BC ==
[2019-06-28] MEDS ORDERED: SODIUM CHLORIDE 0.9% 1000 ML 1,000 ML IV ONE ×3 (01:28→11:00)
--- NOTE | 2019-06-28 01:45 | Emergency Department Report ---
ED Recheck HPI - General Chief Complaint: Hyperglycemia Stated Complaint: HIGH BLOOD GLUCOSE Time Seen by Provider: 06/28/19 01:26 Source: patient Mode of arrival: Ambulatory Limitations: No Limitations - History of Present Illness Initial Comments: Patient is a 48-year-old female up since emergency room for elevated blood sugar and abnormal labs. Patient states her primary care call her today to come to the ER because her abnormal labs. Patient states she had labs last Tuesday here. Patient states that she works here and has all of her medical care done here. Patient denies any abnormal symptoms except for increased urinary frequency. Patient denies chest pain shortness of breath. Patient denies increased thirst. She denies abdominal pain. MD Complaint: abnormal lab -: Sudden Returns Today for: CBOAL Context: called for abnorm lab res Associated Symptoms: none - Related Data Home Medications Medication Instructions Recorded Confirmed Last Taken Aspirin [Aspirin BABY CHEW TAB] 81 mg PO QDAY 12/02/17 11/30/17 11/30/17 Previous Rx's Medication Instructions Recorded Last Taken Type Rivaroxaban [Xarelto] 20 mg PO QDAY tablet 08/02/17 11/30/17 Rx Amoxicillin/Potassium Clav 1 each PO BID #14 tablet 12/03/17 Unknown Rx [Augmentin 875-125 Tablet] Aspirin [Aspirin BABY CHEW TAB] 81 mg PO QDAY tab.chew 12/03/17 Unknown Rx Gabapentin 300 mg PO Q8HR #90 capsule 12/03/17 Unknown Rx Insulin Glargine,Hum.rec.anlog 30 units SQ QHS #30 vial 12/03/17 Unknown Rx [Lantus] Insulin Lispro [HumaLOG VIAL] 7 unit SUB-Q QAC #7 vial 12/03/17 Unknown Rx Rivaroxaban [Xarelto] 20 mg PO QDAY #30 tablet 12/03/17 Unknown Rx oxyCODONE /ACETAMINOPHEN [Percocet 1 tab PO Q6H PRN #30 tablet 12/03/17 Unknown Rx 5/325 mg] Cyclobenzaprine [Flexeril] 10 mg PO TID PRN #20 tablet 05/06/18 Unknown Rx oxyCODONE /ACETAMINOPHEN [Percocet 1 tab PO Q6HR PRN #10 tablet 05/06/18 Unknown Rx 5/325] Acetaminophen/Codeine [Tylenol 1 tab PO Q6H PRN #15 tab 11/01/18 Unknown Rx /Codeine # 3 tab] Clindamycin [Clindamycin CAP] 450 mg PO Q8HR #63 capsule 11/01/18 Unknown Rx Meclizine [Antivert] 25 mg PO TID PRN #30 tablet 11/01/18 Unknown Rx Nitrofurantoin [place]/M-Cryst 100 mg PO Q12HR 10 Days #20 capsule 06/01/19 Unknown Rx [Macrobid CAP] Allergies Allergy/AdvReac Type Severity Reaction Status Date / Time No Known Allergies Allergy Verified 06/01/19 16:22 ED Review of Systems ROS: Stated complaint: HIGH BLOOD GLUCOSE Other details as noted in HPI Constitutional: denies: chills, fever Eyes: denies: eye pain, eye discharge, vision change ENT: denies: ear pain, throat pain Respiratory: denies: cough, shortness of breath, wheezing Cardiovascular: denies: chest pain, palpitations Endocrine: no symptoms reported, increased urine Gastrointestinal: denies: abdominal pain, nausea, diarrhea Genitourinary: urgency, frequency. denies: dysuria, discharge Musculoskeletal: denies: back pain, joint swelling, arthralgia Skin: denies: rash, lesions Neurological: denies: headache, weakness, paresthesias Psychiatric: denies: anxiety, depression Hematological/Lymphatic: denies: easy bleeding, easy bruising ED Past Medical Hx - Past Medical History Previous Medical History?: Yes Hx Hypertension: Yes Hx Heart Attack/AMI: Yes Hx Congestive Heart Failure: No Hx Diabetes: Yes Hx Deep Vein Thrombosis: Yes Hx Pulmonary Embolism: Yes Hx GERD: Yes Hx Arthritis: Yes (in legs) Hx Asthma: No Hx COPD: No Hx HIV: No Additional medical history: DVT, PE, iron deficiency, MRSA, factor 5 gene,foot ulcer - Surgical History Past Surgical History?: Yes Hx Pacemaker: No Hx Internal Defibrillator: No Additional Surgical History: thyroid removed, venous ablasion. all toes amputated on right foot - Family History Family history: no significant - Social History Smoking Status: Never Smoker Substance Use Type: None - Medications Home Medications: Home Medications Medication Instructions Recorded Confirmed Last Taken Type Rivaroxaban [Xarelto] 20 mg PO QDAY tablet 08/02/17 11/30/17 11/30/17 Rx Aspirin [Aspirin BABY CHEW TAB] 81 mg PO QDAY 12/02/17 11/30/17 11/30/17 History Amoxicillin/Potassium Clav 1 each PO BID #14 tablet 12/03/17 Unknown Rx [Augmentin 875-125 Tablet] Aspirin [Aspirin BABY CHEW TAB] 81 mg PO QDAY tab.chew 12/03/17 Unknown Rx Gabapentin 300 mg PO Q8HR #90 capsule 12/03/17 Unknown Rx Insulin Glargine,Hum.rec.anlog 30 units SQ QHS #30 vial 12/03/17 Unknown Rx [Lantus] Insulin Lispro [HumaLOG VIAL] 7 unit SUB-Q QAC #7 vial 12/03/17 Unknown Rx Rivaroxaban [Xarelto] 20 mg PO QDAY #30 tablet 12/03/17 Unknown Rx oxyCODONE /ACETAMINOPHEN [Percocet 1 tab PO Q6H PRN #30 tablet 12/03/17 Unknown Rx 5/325 mg] Cyclobenzaprine [Flexeril] 10 mg PO TID PRN #20 tablet 05/06/18 Unknown Rx oxyCODONE /ACETAMINOPHEN [Percocet 1 tab PO Q6HR PRN #10 tablet 05/06/18 Unknown Rx 5/325] Acetaminophen/Codeine [Tylenol 1 tab PO Q6H PRN #15 tab 11/01/18 Unknown Rx /Codeine # 3 tab] Clindamycin [Clindamycin CAP] 450 mg PO Q8HR #63 capsule 11/01/18 Unknown Rx Meclizine [Antivert] 25 mg PO TID PRN #30 tablet 11/01/18 Unknown Rx Nitrofurantoin [place]/M-Cryst 100 mg PO Q12HR 10 Days #20 capsule 06/01/19 Unknown Rx [Macrobid CAP] ED Physical Exam - General Limitations: No Limitations General appearance: alert, in no apparent distress - Head Head exam: Present: atraumatic, normocephalic - Eye Eye exam: Present: normal appearance - ENT ENT exam: Present: mucous membranes moist - Neck Neck exam: Present: normal inspection - Respiratory Respiratory exam: Present: normal lung sounds bilaterally. Absent: respiratory distress, wheezes, rales - Cardiovascular Cardiovascular Exam: Present: regular rate, normal rhythm. Absent: systolic murmur, diastolic murmur, rubs, gallop - GI/Abdominal GI/Abdominal exam: Present: soft, normal bowel sounds. Absent: distended, tenderness, guarding - Extremities Exam Extremities exam: Present: normal inspection - Back Exam Back exam: Present: normal inspection - Neurological Exam Neurological exam: Present: alert, oriented X3 - Psychiatric Psychiatric exam: Present: normal affect, normal mood - Skin Skin exam: Present: warm, dry, intact, normal color. Absent: rash ED Course Vital Signs 06/27/19 06/28/19 20:52 02:15 Temperature 98.3 F Pulse Rate 95 H 99 H Respiratory 20 Rate Blood Pressure 129/71 144/75 O2 Sat by Pulse 99 100 Oximetry - Reevaluation(s) Reevaluation #1: I discussed all results with patient. Discussed plan of care patient. Patient was admitted to the hospitalist service. Patient agrees with plan of care and admission. 06/28/19 02:31 - Consultations Consultation #1: 06/28/19 02:31 Hospitalist consult for admission. Hospitalist admit patient. ED Recheck MDM - Core Measures AMI Core Measures Followed: Yes - Differential Diagnosis dka, hhs. Diabetes, noncompliance, hyperglycemia. - Medical Decision Making Patient is a 48-year-old female that was sent here by her primary care for management of her elevated blood sugar. Patient had labs last Tuesday and her A1c was 20. Patient was in DKA and his labs. Patient's labs consistent with hyper osmolar hyperglycemic syndrome. Patient started on insulin drip and given fluids. Patient admitted to the hospitalist service. Patient's labs also consi stent with renal insufficiency. Critical Care Time: Yes Critical care time in (mins) excluding proc time.: 35 Critical care attestation.: If time is entered above; I have spent that time in minutes in the direct care of this critically ill patient, excluding procedure time. Critical Care Time: 35 minutes ED Disposition Clinical Impression: Noncompliance, Hyperosmolar non-ketotic state in patient with type 2 diabetes mellitus, Renal insufficiency Disposition: OP ADMIT IP TO THIS HOSP Is pt being admited?: Yes Does the pt Need Aspirin: No Condition: Critical Time of Disposition: 02:29
[2019-06-28 02:02] LABS: Basophils # (Auto) 0.1 K/mm3 (0.0-0.1); Basophils % (Auto) 0.9 % (0.0-1.8); Eosinophils # (Auto) 0.3 K/mm3 (0.0-0.4); Eosinophils % (Auto) 4.2 % (0.0-4.3); Hematocrit 36.3 % (30.3-42.9); Hemoglobin 12.5 gm/dl (10.1-14.3); Lymphocytes # (Auto) 1.8 K/mm3 (1.2-5.4); Lymphocytes % (Auto) 26.7 % (13.4-35.0); Mean Corpuscular HGB Conc 34 % (30-34); Mean Corpuscular Volume 87 fl (79-97); Monocytes # (Auto) 0.7 K/mm3 (0.0-0.8); Monocytes % (Auto) 10.8 % (0.0-7.3); Platelet Count 379 K/mm3 (140-440); Red Blood Count 4.17 M/mm3 (3.65-5.03); Red Cell Distribution Width 12.8 % (13.2-15.2)
[2019-06-28 02:22] LABS: Alanine Aminotransferase 15 units/L (7-56); Albumin 3.9 g/dL (3.9-5); BUN/Creatinine Ratio 20; Blood Urea Nitrogen 24 mg/dL (7-17); Calcium 9.8 mg/dL (8.4-10.2); Hemolysis Index 6
[2019-06-28] MEDS ORDERED: INSULIN REGULAR, HUMAN 100 UNITS in SODIUM CHLORIDE 0.9% 99 ML IV SCH ×2 (03:00→04:00)
[2019-06-28 03:08] LABS: Bilirubin,Urine NEG (Negative); Blood,Urine MOD (Negative); Color,Urine Colorless (Yellow); Urobilinogen,Urine < 2.0 mg/dL (<2.0)
[2019-06-28] MEDS ORDERED: ONDANSETRON 4 MG/2 ML INJ IV PRN ×2 (03:39→11:04)
[2019-06-28 03:40] LABS: Calcium 9.3 mg/dL (8.4-10.2)
[2019-06-28] MEDS ORDERED: D5W/0.45% NACL/KCL 20 MEQ 20 MEQ/1,000 ML BAG IV SCH (04:00)
--- NOTE | 2019-06-28 04:02 | History and Physical Report ---
History of Present Illness Date of examination: 06/28/19 Date of admission: 06/28/2019 Chief complaint: Abnormal labs History of present illness: 48-year-old -[place] female with known history of diabetes mellitus was sent to the emergency room by her primary care physician for abnormal labs. Patient is known to be noncompliant with her medications and has been admitted on multiple occasions for DKA. Blood sugar was said to be quite elevated and was encouraged to report to the emergency room for further evaluation. Patient denies any chest pain or shortness of breath, no nausea vomiting and no abdominal pain. No hematuria or dysuria however she has had any increased urinary frequency. Evaluation in the emergency room reveals blood sugar of about 700. She was subsequently started on IV fluid and insulin drip. Past History Past Medical History: CAD, diabetes, DVT, GERD, hypothyroidism, other (History of MRSA, factor V gene deficiency) Past Surgical History: thyroidectomy, Other (Right foot toes amputation, venous ablation) Social history: no significant social history Family history: no significant family history Medications and Allergies Allergies Allergy/AdvReac Type Severity Reaction Status Date / Time No Known Allergies Allergy Verified 06/01/19 16:22 Home Medications Medication Instructions Recorded Confirmed Last Taken Type Rivaroxaban [Xarelto] 20 mg PO QDAY tablet 08/02/17 06/28/19 11/30/17 Rx Aspirin [Aspirin BABY CHEW TAB] 81 mg PO QDAY 12/02/17 06/28/19 11/30/17 History Amoxicillin/Potassium Clav 1 each PO BID #14 tablet 12/03/17 06/28/19 Unknown Rx [Augmentin 875-125 Tablet] Aspirin [Aspirin BABY CHEW TAB] 81 mg PO QDAY tab.chew 12/03/17 06/28/19 Unknown Rx Gabapentin 300 mg PO Q8HR #90 capsule 12/03/17 06/28/19 Unknown Rx Insulin Glargine,Hum.rec.anlog 30 units SQ QHS #30 vial 12/03/17 06/28/19 Unknown Rx [Lantus] Insulin Lispro [HumaLOG VIAL] 7 unit SUB-Q QAC #7 vial 12/03/17 06/28/19 Unknown Rx Rivaroxaban [Xarelto] 20 mg PO QDAY #30 tablet 12/03/17 06/28/19 Unknown Rx oxyCODONE /ACETAMINOPHEN [Percocet 1 tab PO Q6H PRN #30 tablet 12/03/17 06/28/19 Unknown Rx 5/325 mg] Cyclobenzaprine [Flexeril] 10 mg PO TID PRN #20 tablet 05/06/18 06/28/19 Unknown Rx oxyCODONE /ACETAMINOPHEN [Percocet 1 tab PO Q6HR PRN #10 tablet 05/06/18 06/28/19 Unknown Rx 5/325] Acetaminophen/Codeine [Tylenol 1 tab PO Q6H PRN #15 tab 11/01/18 06/28/19 Unknown Rx /Codeine # 3 tab] Clindamycin [Clindamycin CAP] 450 mg PO Q8HR #63 capsule 11/01/18 06/28/19 Unknown Rx Meclizine [Antivert] 25 mg PO TID PRN #30 tablet 11/01/18 06/28/19 Unknown Rx Nitrofurantoin [place]/M-Cryst 100 mg PO Q12HR 10 Days #20 capsule 06/01/19 06/28/19 Unknown Rx [Macrobid CAP] Active Meds: Active Medications Insulin Human Regular 100 (units/ Sodium Chloride) 100 mls @ 1 mls/hr IV TITR [place]; Protocol Last Admin: 06/28/19 03:00 Dose: 8 units/hr, 8 mls/hr Documented by: Insulin Human Regular 100 (units/ Sodium Chloride) 100 mls @ 1 mls/hr IV TITR [place]; Protocol Sodium Chloride (Nacl 0.9% 1000 Ml) 1,000 mls @ 150 mls/hr IV DIRECT [place] Potassium Chloride/Dextrose/Sod Cl (D5w/0.45% Nacl/Kcl 20 Meq) 20 meq in 1,000 mls @ 125 mls/hr IV DIRECT [place] Ondansetron HCl (Zofran) 4 mg IV Q8H PRN PRN Reason: Nausea And Vomiting Sodium Chloride (Sodium Chloride Flush Syringe 10 Ml) 10 ml IV BID [place] Sodium Chloride (Sodium Chloride Flush Syringe 10 Ml) 10 ml IV PRN PRN PRN Reason: LINE FLUSH Review of Systems Endocrine: high blood sugars Exam - Constitutional Vitals: Temp Pulse Resp BP Pulse Ox 98.7 F 101 H 11 L 156/86 100 06/28/19 02:24 06/28/19 03:00 06/28/19 03:00 06/28/19 03:00 06/28/19 03:00 General appearance: Present: no acute distress, well-nourished - EENT Eyes: Present: PERRL, EOM intact ENT: hearing intact, clear oral mucosa, dentition normal - Neck Neck: Present: supple, normal ROM - Respiratory Respiratory effort: normal Respiratory: bilateral: CTA - Cardiovascular Rhythm: regular Heart Sounds: Present: S1 & S2 - Extremities Extremities: no ischemia, Full ROM Extremity abnormal: edema (2+ left lower extremity edema, 1+ right lower extremity edema), other (Multiple healing ulcers on both lower extremities) Peripheral Pulses: within normal limits - Abdominal General gastrointestinal: Present: soft, non-tender, non-distended - Integumentary Integumentary: Present: clear, warm, dry - Musculoskeletal Musculoskeletal: strength equal bilaterally - Psychiatric Psychiatric: appropriate mood/affect, intact judgment & insight, cooperative - Neurologic Neurologic: CNII-XII intact, moves all extremities Results - Labs CBC & Chem 7: 06/28/19 01:34 06/28/19 05:36 Labs: Abnormal lab results 06/27/19 06/28/19 06/28/19 Range/Units 21:01 01:34 01:34 RDW 12.8 L (13.2-15.2) % [place] % (Auto) 10.8 H (0.0-7.3) % Sodium 133 L (137-145) mmol/L Chloride 93.8 L (98-107) mmol/L Carbon Dioxide (22-30) mmol/L BUN 24 H (7-17) mg/dL Glucose 617 H* (65-100) mg/dL POC Glucose > 500 H (70-105) Magnesium (1.7-2.3) mg/dL Alkaline Phosphatase 183 H (35-129) units/L 06/28/19 06/28/19 Range/Units 02:44 02:44 RDW (13.2-15.2) % [place] % (Auto) (0.0-7.3) % Sodium 132 L (137-145) mmol/L Chloride 95.1 L (98-107) mmol/L Carbon Dioxide 20 L (22-30) mmol/L BUN 24 H (7-17) mg/dL Glucose 609 H* (65-100) mg/dL POC Glucose (70-105) Magnesium 2.40 H (1.7-2.3) mg/dL Alkaline Phosphatase (35-129) units/L Assessment and Plan - Patient Problems (1) Hyperosmolar non-ketotic state in patient with type 2 diabetes mellitus Current Visit: Yes Status: Acute Plan to address problem: Patient placed on IV fluid and insulin drip. We will monitor blood sugar (2) DVT (deep venous thrombosis) Current Visit: No Status: Acute Plan to address problem: We will place on subcutaneous heparin (3) Full code status Current Visit: Yes Status: Acute
[2019-06-28 06:22] LABS: BUN/Creatinine Ratio 19; Blood Urea Nitrogen 21 mg/dL (7-17); Calcium 9.1 mg/dL (8.4-10.2); Hemolysis Index 7
[2019-06-28 08:41] LABS: BUN/Creatinine Ratio 22; Blood Urea Nitrogen 22 mg/dL (7-17); Hemolysis Index 2
[2019-06-28 09:04] LABS: BUN/Creatinine Ratio 22; Blood Urea Nitrogen 22 mg/dL (7-17); Calcium 8.9 mg/dL (8.4-10.2); Hemolysis Index 10
[2019-06-28] MEDS ORDERED: INSULIN REGULAR, HUMAN 100 UNITS/1 ML SUB-Q SCH (11:01)
[2019-06-28] MEDS ORDERED: DEXTROSE 50% IN WATER (25GM) 50 ML SYRINGE IV PRN ×2 (11:01→22:08)
[2019-06-28] MEDS ORDERED: CYCLOBENZAPRINE 10 MG TAB PO PRN (11:05)
[2019-06-28] MEDS ORDERED: oxyCODONE /ACETAMINOPHEN 5-325MG TAB PO PRN (11:05)
[2019-06-28] MEDS ORDERED: MECLIZINE 25 MG TAB PO PRN (11:05)
--- NOTE | 2019-06-28 11:08 | Progress Note ---
Assessment and Plan Assessment and plan: 48-year-old -[place] female with known history of diabetes mellitus, hypothyroidism, DVT, pulmonary embolism, factor V gene deficiency, MRSA, thyroidectomy, right toes amputation, venous ablation, CAD was sent to the emergency room by her primary care physician for abnormal labs. Patient is know n to be noncompliant with her medications and has been admitted on multiple occasions for DKA. Blood sugar was said to be quite elevated and was encouraged to report to the emergency room for further evaluation. Patient denies any chest pain or shortness of breath, no nausea vomiting and no abdominal pain. No hematuria or dysuria however she has had any increased urinary frequency. Evaluation in the emergency room reveals blood sugar of about 700. She was subsequently started on IV fluid and insulin drip. Hyperosmolar nonketotic diabetes type 2 Chronic LOWER Ext Edema Chronic none healing wound DVT Plan wean off insulin drip Resume sq insulin and long acting resume xarelto accu check extensive discussion on compliance, wound care eval advance care planning for 35 mins anticipate discharge in am History Interval history: Patient seen and examined reports that she has unfortunately been noncompliant with her medications. She reports improvement in her symptoms since admission until now. Hospitalist Physical - Physical exam Narrative exam: VITAL SIGNS: Reviewed. GENERAL: The patient appears normally developed, Vital signs as documented. HEAD: No signs of head trauma. EYES: Pupils are equal. Extraocular motions intact. EARS: Hearing grossly intact. MOUTH: Oropharynx is normal. NECK: No adenopathy, no JVD. CHEST: Chest with clear breath sounds bilaterally. No wheezes, rales, or rhonchi. CARDIAC: Regular rate and rhythm. S1 and S2, without murmurs, gallops, or rubs. VASCULAR: Bilateral lower extremity pitting edema +1. Peripheral pulses normal and equal in all extremities. ABDOMEN: Soft, non tender and non distended. No rebound or guarding, and no masses palpated. Bowel Sounds normal. MUSCULOSKELETAL: Good range of motion of all major joints. Extremities without clubbing, cyanosis. Bilateral pitting edema +1. Chronic lower extremity ulcerations NEUROLOGIC EXAM: Alert and oriented x 3 No focal sensory or strength d eficits. Speech normal. Follows commands. PSYCHIATRIC: Mood normal. SKIN: detial exam as documented in skin assessment - Constitutional Vitals: Temp Pulse Resp BP Pulse Ox 98.7 F 88 10 L 94/48 98 06/28/19 02:24 06/28/19 08:00 06/28/19 08:00 06/28/19 08:00 06/28/19 08:00 General appearance: Present: no acute distress, well-nourished Results - Labs CBC & Chem 7: 06/28/19 01:34 06/28/19 11:30 Labs: Laboratory Last Values WBC 6.9 K/mm3 (4.5-11.0) 06/28/19 01:34 RBC 4.17 M/mm3 (3.65-5.03) 06/28/19 01:34 Hgb 12.5 gm/dl (10.1-14.3) 06/28/19 01:34 Hct 36.3 % (30.3-42.9) 06/28/19 01:34 MCV 87 fl (79-97) 06/28/19 01:34 MCH 30 pg (28-32) 06/28/19 01:34 MCHC 34 % (30-34) 06/28/19 01:34 RDW 12.8 % (13.2-15.2) L 06/28/19 01:34 Plt Count 379 K/mm3 (140-440) 06/28/19 01:34 Lymph % (Auto) 26.7 % (13.4-35.0) 06/28/19 01:34 [place] % (Auto) 10.8 % (0.0-7.3) H 06/28/19 01:34 Eos % (Auto) 4.2 % (0.0-4.3) 06/28/19 01:34 Baso % (Auto) 0.9 % (0.0-1.8) 06/28/19 01:34 Lymph # 1.8 K/mm3 (1.2-5.4) 06/28/19 01:34 [place] # 0.7 K/mm3 (0.0-0.8) 06/28/19 01:34 Eos # 0.3 K/mm3 (0.0-0.4) 06/28/19 01:34 Baso # 0.1 K/mm3 (0.0-0.1) 06/28/19 01:34 Seg Neutrophils % 57.4 % (40.0-70.0) 06/28/19 01:34 Seg Neutrophils # 3.9 K/mm3 (1.8-7.7) 06/28/19 01:34 VBG pH 7.375 (7.320-7.420) 06/28/19 01:34 Sodium 141 mmol/L (137-145) 06/28/19 08:26 Potassium 4.0 mmol/L (3.6-5.0) 06/28/19 08:26 Chloride 106.6 mmol/L (98-107) 06/28/19 08:26 Carbon Dioxide 20 mmol/L (22-30) L 06/28/19 08:26 Anion Gap 18 mmol/L 06/28/19 08:26 BUN 22 mg/dL (7-17) H 06/28/19 08:26 Creatinine 1.0 mg/dL (0.7-1.2) 06/28/19 08:26 Estimated GFR > 60 ml/min 06/28/19 08:26 BUN/Creatinine Ratio 22 % 06/28/19 08:26 Glucose 173 mg/dL (65-100) H 06/28/19 08:26 POC Glucose 146 (70-105) H 06/28/19 11:13 Lactic Acid 1.10 mmol/L (0.7-2.0) 06/28/19 02:00 Calcium 8.9 mg/dL (8.4-10.2) 06/28/19 08:26 Phosphorus 3.30 mg/dL (2.5-4.5) 06/28/19 05:36 Magnesium 2.30 mg/dL (1.7-2.3) 06/28/19 05:36 Total Bilirubin < 0.20 mg/dL (0.1-1.2) 06/28/19 01:34 AST 15 units/L (5-40) 06/28/19 01:34 ALT 15 units/L (7-56) 06/28/19 01:34 Alkaline Phosphatase 183 units/L (35-129) H 06/28/19 01:34 Total Protein 7.6 g/dL (6.3-8.2) 06/28/19 01:34 Albumin 3.9 g/dL (3.9-5) 06/28/19 01:34 Albumin/Globulin Ratio 1.1 % 06/28/19 01:34 Urine Color Colorless (Yellow) 06/28/19 01:55 Urine Turbidity Clear (Clear) 06/28/19 01:55 Urine pH 7.0 (5.0-7.0) 06/28/19 01:55 Ur Specific [place] 1.026 (1.003-1.030) 06/28/19 01:55 Urine Protein 100 mg/dl mg/dL (Negative) 06/28/19 01:55 Urine Glucose (UA) >=500 mg/dL (Negative) 06/28/19 01:55 Urine Ketones Tr mg/dL (Negative) 06/28/19 01:55 Urine Blood Mod (Negative) 06/28/19 01:55 Urine Nitrite Neg (Negative) 06/28/19 01:55 Ur Reducing Substances Not Reportable 06/28/19 01:55 Urine Bilirubin Neg (Negative) 06/28/19 01:55 Urine Ictotest Not Reportable 06/28/19 01:55 Urine Urobilinogen < 2.0 mg/dL (<2.0) 06/28/19 01:55 Ur Leukocyte Esterase Sm (Negative) 06/28/19 01:55 Urine WBC (Auto) Not Reportable 06/28/19 01:55 Urine RBC (Auto) 9.0 /HPF (0.0-6.0) 06/28/19 01:55 U Epithel Cells (Auto) < 1.0 /HPF (0-13.0) 06/28/19 01:55 Active Medications - Current Medications Current Medications: Generic Name Dose Route Start Last Admin Trade Name Freq PRN Reason Stop Dose Admin Dextrose 50 ml 06/28/19 11:01 D50w (25gm) Syringe IV Q30MIN PRN Hypoglycemia Protocol Heparin Sodium (Porcine) 5,000 unit 06/28/19 14:00 Heparin SUB-Q Q8HR [place] Sodium Chloride 1,000 mls @ 150 mls/hr 06/28/19 03:45 Nacl 0.9% 1000 Ml IV DIRECT [place] Sodium Chloride 1,000 mls @ 999 mls/hr 06/28/19 11:00 Nacl 0.9% 1000 Ml IV 06/28/19 12:00 BOLUS ONE Insulin Glargine 25 units 06/28/19 22:00 Lantus SUB-Q QHS [facility] Insulin Human Lispro 0 unit 06/28/19 11:30 Humalog SUB-Q ACHS [facility] Protocol Insulin Human Regular 10 units 06/28/19 12:01 Humulin R SUB-Q 06/28/19 12:02 ONCE ONE Ondansetron HCl 4 mg 06/28/19 11:04 Zofran IV Q4H PRN Nausea And Vomiting Sodium Chloride 10 ml 06/28/19 10:00 06/28/19 10:05 Sodium Chloride Flush Syringe 10 Ml IV 10 ml BID [place] Administration Sodium Chloride 10 ml 06/28/19 03:39 Sodium Chloride Flush Syringe 10 Ml IV PRN PRN LINE FLUSH
[2019-06-28] MEDS ORDERED: SODIUM CHLORIDE 0.9% 1000 ML 1,000 ML ONE (11:17)
[2019-06-28] MEDS ORDERED: INSULIN REGULAR, HUMAN 100 UNITS/1 ML ONE (11:17)
[2019-06-28] MEDS ORDERED: INSULIN REGULAR, HUMAN 100 UNITS/1 ML SUB-Q ONE ×2 (11:20→12:01)
[2019-06-28] MEDS ORDERED: INSULIN LISPRO 100 UNIT/ML SUB-Q SCH (11:30)
[2019-06-28] MEDS ORDERED: RIVAROXABAN 10 MG TAB PO SCH (12:00)
[2019-06-28 12:04] LABS: BUN/Creatinine Ratio 20; Blood Urea Nitrogen 18 mg/dL (7-17); Calcium 8.6 mg/dL (8.4-10.2); Hemolysis Index 4
[2019-06-28] MEDS ORDERED: HEPARIN 5,000 UNIT/1 ML VIAL SUB-Q SCH (14:00)
[2019-06-28] MEDS: GABAPENTIN 300 MG CAP PO SCH ×2 (15:30→22:31)
[2019-06-28] MEDS: CLINDAMYCIN 150 MG CAP PO SCH ×2 (15:31→22:31)
[2019-06-28] MEDS: SODIUM CHLORIDE 0.9% 1000 ML 1,000 ML IV SCH (15:31)
[2019-06-28] MEDS: RIVAROXABAN 20 MG TAB PO SCH (15:41)
[2019-06-28 19:11] LABS: BUN/Creatinine Ratio 20; Blood Urea Nitrogen 16 mg/dL (7-17); Calcium 8.7 mg/dL (8.4-10.2); Hemolysis Index 7
[2019-06-28] MEDS ORDERED: INSULIN GLARGINE 100 UNITS/ML SUB-Q SCH (22:00)
[2019-06-28] MEDS: INSULIN LISPRO 100 UNIT/ML SUB-Q SCH (22:41)
[2019-06-29] MEDS: CLINDAMYCIN 150 MG CAP PO SCH ×2 (05:52→13:55)
[2019-06-29] MEDS: GABAPENTIN 300 MG CAP PO SCH ×2 (05:52→13:55)
[2019-06-29] MEDS: SODIUM CHLORIDE 0.9% 1000 ML 1,000 ML IV SCH (05:57)
[2019-06-29 07:44] LABS: BUN/Creatinine Ratio 18; Blood Urea Nitrogen 14 mg/dL (7-17); Calcium 8.4 mg/dL (8.4-10.2); Hemolysis Index 3
[2019-06-29] MEDS: INSULIN LISPRO 100 UNIT/ML SUB-Q SCH ×3 (08:41→18:47)
[2019-06-29] MEDS: RIVAROXABAN 20 MG TAB PO SCH (08:41)
[2019-06-29] MEDS ORDERED: ASPIRIN 81 MG TAB CHEW PO SCH (10:00)
--- NOTE | 2019-06-29 13:32 | Discharge Summary ---
Providers - Providers Date of Admission: 06/28/19 02:34 Attending physician: NISHANT CISNEROS MD 06/28/19 03:39 Consult to Dietitian/Nutrition [CONS] Routine Physician Instructions: Reason For Exam: Reason for Consult: Diet education Primary care physician: REYNALDO HANSON Hospitalization Condition: Stable Hospital course: 48-year-old -[place] female with known history of diabetes mellitus, hypothyroidism, DVT, pulmonary embolism, factor V gene deficiency, MRSA, thyroidectomy, right toes amputation, venous ablation, CAD was sent to the emergency room by her primary care physician for abnormal labs. Patient is known to be noncompliant with her medications and has been admitted on multiple occasions for DKA. Blood sugar was said to be quite elevated and was encouraged to report to the emergency room for further evaluation. Patient denies any chest pain or shortness of breath, no nausea vomiting and no abdominal pain. No hematuria or dysuria however she has had any increased urinary frequency. Evaluation in the emergency room reveals blood sugar of about 700. She was subsequently started on IV fluid and insulin drip. Hyperosmolar nonketotic diabetes type 2 Chronic LOWER Ext Edema Chronic none healing wound DVT Non compliance CHRONIC DVT HYPONATREMIA Plan wean off insulin drip Resume sq insulin and long acting resume xarelto accu check extensive discussion on compliance, wound care eval advance care planning for 35 mins anticipate discharge in am Time spent for discharge: 35 mins Exam - Constitutional Vitals: Temp Pulse Resp BP Pulse Ox 98.1 F 83 18 108/54 100 06/29/19 11:58 06/29/19 11:58 06/29/19 11:58 06/29/19 11:58 06/29/19 11:58 Plan Activity: advance as tolerated, fall precautions Diet: low fat, diabetic Special Instructions: record daily weights, record daily BP diary, record blood sugar diary Follow up with: REYNALDO HNASON MD [Primary Care Provider] - 7 Days Prescriptions: Insulin Glargine [Lantus VIAL] 30 units SUB-Q QHS #100 units
[2019-06-29 18:00] VITALS: BP 128/62
[2019-06-29] MEDS ORDERED: INSULIN LISPRO 100 UNIT/ML SUB-Q ONE (18:19)
== END 2019-06-29 19:50 | disposition home or self-care (01) | DRG 638 ==
LOC: ED 20:26 → CC1 06-28 02:34 → 3A 06-28 11:35
PROVIDERS: ADMIT Internal Medicine Geriatric Medicine; ATTEND Internal Medicine
DX: E11.00 Type 2 diabetes mellitus with hyperosmolarity without nonketotic hyperglycemic-hyperosmolar coma (NKHHC) (principal); I82.503 Chronic embolism and thrombosis of unspecified deep veins of lower extremity, bilateral; I10 Essential (primary) hypertension; I25.2 Old myocardial infarction; E11.9 Type 2 diabetes mellitus without complications; K21.9 Gastro-esophageal reflux disease without esophagitis; M19.91 Primary osteoarthritis, unspecified site; I25.10 Atherosclerotic heart disease of native coronary artery without angina pectoris; E03.9 Hypothyroidism, unspecified; Z79.82 Long term (current) use of aspirin; Z91.14 Patient's other noncompliance with medication regimen; Z79.4 Long term (current) use of insulin; Z86.711 Personal history of pulmonary embolism
CPT/HCPCS: 36415; 80048; 80053; 81001; 82140; 82805; 82962; 83735; 84100; 85025; 87116; G0378; J1815; J7030